=== PATIENT | female | born 1960 | race Caucasian/White ===

== ENCOUNTER 2020-04-22 09:34 | Outpatient (CLI) | payer BC, SELFPAY ==
--- NOTE | ~2020-04-22 | XR_ITS ---
EXAMINATION: XR abdomen/kub 1V INDICATION: History of right ureteral stone TECHNIQUE: Supine view of the abdomen is obtained. COMPARISON: 04/03/2019, 04/19/2017 FINDINGS: Multiple phleboliths are noted in the pelvis. No definite urinary tract calculi are identif ied. The bowel gas pattern is normal. There is mild lumbar spondylosis. IMPRESSION: 1. No definite urinary tract calculi identified. Reviewed, dictated and finalized at location A.
== END 2020-04-22 09:35 | disposition home or self-care (01) ==
LOC: ANHIMG 09:40
PROVIDERS: PCP Family Medicine; Visit Provider Urology
DX: N20.1 Calculus of ureter (principal)
CPT/HCPCS: 74018

== ENCOUNTER 2020-08-18 02:34 | Outpatient (CLI) | payer BC, SELFPAY ==
[2020-08-18 18:16] LABS: SARS-CoV-2 RNA PCR Negative
== END 2020-08-18 02:35 | disposition home or self-care (01) ==
LOC: ANHCOVIDDT 02:35
PROVIDERS: PCP Family Medicine; Visit Provider Internal Medicine Gastroenterology
DX: Z01.812 Encounter for preprocedural laboratory examination (principal); Z20.828 Contact with and (suspected) exposure to other viral communicable diseases
CPT/HCPCS: 87635; C9803; U0003

== ENCOUNTER 2020-08-20 02:15 | Day surgery (SDC) | payer BC, SELFPAY ==
[2020-08-14 12:08] VITALS: BMI 34.1
[2020-08-20 07:26] VITALS: BP 120/83; PULSE 72; RESP 16; TEMP 36.2; O2SAT 99; BMI 33.7
[2020-08-20] MEDS: LACTATED RINGERS 1,000 ML 150 ML IV CONT (07:37)
--- NOTE | 2020-08-20 07:51 | P.PNAN_ITS ---
Anes - Initial Pre Proc Eval Procedure: Operation Date: 08/20/20 08:30 Proposed Procedures p Screening Colonoscopy - Andrew Wilks MD Date/Time: 08/20/20 07:51 Surgeon: Andrew Wilks MD Pre Op Diagnosis: Neoplasm Screening/ Hx Colon Polyps Patient Data Age: 59 Gender: F Height: 5 ft 1 in Weight: 81.1 kg Last Vital Signs Temp 36.2 C L 08/20/20 07:26 Pulse 72 08/20/20 07:26 Resp 16 08/20/20 07:26 BP 120/83 08/20/20 07:26 Pulse Ox 99 08/20/20 07:26 Allergies Allergy/AdvReac Type Severity Reaction Status Date / Time No Known Allergies Allergy Verified 08/14/20 12:03 Home Medications Medication Instructions Recorded Confirmed Type albuterol sulfate 90 mcg/actuation 1 inhalation INHALATION Q4H PRN 07/28/20 08/14/20 Rx aerosol inhaler #8.5 gm atorvastatin 10 mg tablet 10 mg PO DAILY #90 tablet 07/28/20 08/14/20 Rx azelastine 137 mcg (0.1 %) nasal 1 spray NASAL Q12H #30 ml 07/28/20 08/14/20 Rx spray aerosol budesonide-formoterol HFA 160 2 puff INHALATION Q12H #10.2 gm 07/28/20 08/14/20 Rx mcg-4.5 mcg/actuation aerosol inhaler Tumeric 500 mg BYMOUTH BID 08/14/20 08/14/20 History calcium carbonate-vitamin D3 1 tablet PO DAILY 08/14/20 08/14/20 History [Calcium Chew] cetirizine [Zyrtec] 10 mg PO DAILY 08/14/20 08/14/20 History zjohednypygh-At-gdda-minerals 1 tablet PO DAILY 08/14/20 08/14/20 History [Multiple Vitamin, Womens] Patient hx anesthesia problems: none Family hx anesthesia problems: none PMFSH Past Medical History Medical History Mild intermittent asthma without complication Mixed hyperlipidemia Polyp of transverse colon Family History Family History Grandparent Cerebrovascular accident Carcinoma of colon Family history of malignant neoplasm of cervix Family history of primary malignant neoplasm of liver Diabetes mellitus Sibling Family history of malignant neoplasm of breast in first degree relative Father Family history of heart disease in male family member before age 55 Other Family history of allergic disorder Family history of malignant neoplasm Hypertension Social History Social History Smoking status: Never smoker Alcohol intake: current Drinks per week: 2 Alcohol use details: WINE/BEER Substance use: never Substance use type: does not use Living arrangements: with family Spiritual care concerns: No Anes - Eval Final PreProcedure Day of Procedure 08/20/20 07:51 Patient weight: obese Heart: regular rate and rhythm Lungs: clear to auscultation Airway: Mallampati scale class II Neurological: alert and oriented Last oral intake: >/= 8 hours ASA classification: II Emergent: no Anesthetic plan: proceed Anesthesia type and monitoring: general GIVS and standard monitoring Informed Consent: The patient's anesthetic plan and its attendant risks and benefits were discussed with the patient/family/POA. Questions were solicited an d answers provided to the satisfaction of the patient/family/POA.
--- NOTE | 2020-08-20 08:11 | WPDGICN ---
Assessment and Plan Assessment and plan (1) History of colon polyps: Code(s): Z86.010 - Personal history of colonic polyps Status: Acute Assessment and Plan: Patient has a history of a tubulovillous adenomatous colon polyp in 2016. Plan is for follow-up colonoscopy now and at 3-5 year intervals in the future. Further recommendations will be given after colonoscopy. GI Consult Note Consult date/time: 08/20/20 08:11 HPI: aCro Sarabia is a 59 year old female Seen in evaluation at the request of Dr. Vadim Cameron. patient has a history of colon polyps. Patient presents today for follow-up colonoscopy. Last examination in 2016 revealed a tubulovillous adenoma. Patient states that her current weight appetite bowel movements are normal. She denies abdominal pain. She has had no bleeding. Family history is noncontributory. Review of Systems Review of Systems: All systems reviewed & are unremarkable except as noted in HPI and below PMFSH Past Medical History Medical History Mild intermittent asthma without complication Mixed hyperlipidemia Polyp of transverse colon Family History Family History Grandparent Cerebrovascular accident Carcinoma of colon Family history of malignant neoplasm of cervix Family history of primary malignant neoplasm of liver Diabetes mellitus Sibling Family history of malignant neoplasm of breast in first degree relative Father Family history of heart disease in male family member before age 55 Other Family history of allergic disorder Family history of malignant neoplasm Hypertension Social History Social History Smoking status: Never smoker Alcohol intake: current Drinks per week: 2 Alcohol use details: WINE/BEER Substance use: never Substance use type: does not use Living arrangements: with family Spiritual care concerns: No Meds Home Medications and Allergies Home Medications Medication Instructions Recorded Confirmed Type albuterol sulfate 90 mcg/actuation 1 inhalation INHALATION Q4H PRN 07/28/20 08/14/20 Rx aerosol inhaler #8.5 gm atorvastatin 10 mg tablet 10 mg PO DAILY #90 tablet 07/28/20 08/14/20 Rx azelastine 137 mcg (0.1 %) nasal 1 spray NASAL Q12H #30 ml 07/28/20 08/14/20 Rx spray aerosol budesonide-formoterol HFA 160 2 puff INHALATION Q12H #10.2 gm 07/28/20 08/14/20 Rx mcg-4.5 mcg/actuation aerosol inhaler Tumeric 500 mg BYMOUTH BID 08/14/20 08/14/20 History calcium carbonate-vitamin D3 1 tablet PO DAILY 08/14/20 08/14/20 History [Calcium Chew] cetirizine [Zyrtec] 10 mg PO DAILY 08/14/20 08/14/20 History gnixfuhklkqm-Fq-zvhb-minerals 1 tablet PO DAILY 08/14/20 08/14/20 History [Multiple Vitamin, Womens] Allergies Allergy/AdvReac Type Severity Reaction Status Date / Time No Known Allergies Allergy Verified 08/14/20 12:03 Vital Signs Vital Signs - 24 hr 08/20/20 07:26 Temperature 97.2 F L Pulse Rate 72 Respiratory Rate 16 Blood Pressure 120/83 Pulse Oximetry 99 Exam Narrative: Exam Narrative: Physical exam reveals patient to be alert. Vital signs stable. HEENT exam unremarkable. Patient is anicteric. Lungs are clear to auscultation and percussion. Heart is without murmur or extra sounds. Abdominal exam bowel sounds are present soft nontender with no hepatosplenomegaly. Digital external rectal exam is normal.
[2020-08-20 09:04] VITALS: BP 93/56; PULSE 56; RESP 16; O2SAT 100
[2020-08-20 09:14] VITALS: BP 110/65; PULSE 54; RESP 16; O2SAT 100
[2020-08-20 09:21] VITALS: BP 143/73; PULSE 56; RESP 20; O2SAT 99
== END 2020-08-20 09:35 | disposition home or self-care (01) ==
PROVIDERS: PCP Family Medicine; Visit Provider Internal Medicine Gastroenterology
PROC: 0DJD8ZZ Inspection of Lower Intestinal Tract, Via Natural or Artificial Opening Endoscopic (ICD-10-PCS; CPT 45378; principal; 2020-08-20 08:30)
DX: Z12.11 Encounter for screening for malignant neoplasm of colon (principal); D12.2 Benign neoplasm of ascending colon; D12.3 Benign neoplasm of transverse colon; D12.5 Benign neoplasm of sigmoid colon; K64.8 Other hemorrhoids; K57.30 Diverticulosis of large intestine without perforation or abscess without bleeding; E78.2 Mixed hyperlipidemia; J45.20 Mild intermittent asthma, uncomplicated; E66.9 Obesity, unspecified; Z68.33 Body mass index [BMI] 33.0-33.9, adult
CPT/HCPCS: 45385; 88305; J2704; J7120

== ENCOUNTER 2024-07-19 15:03 | Outpatient (CLI) | payer OTHER, SELFPAY ==
--- NOTE | ~2024-07-19 | DEXA_ITS ---
Bone Density Report Name: FELIPE JONES Age: 63 Sex: Female Ethnicity: White Date of : 1960 Indication: postmenopausal; screening for osteoporosis; height loss; Referring Provider: CORDELIA EPPS Study: Bone densitometry was performed. Exam Date: July 19, 2024 Accession number: [id number] Bone Density: Region BMD T-score Z-score Classification AP Spine(L1-L4) 0.813 -2.1 -0.5 Osteopenia Femoral Neck (Left) 0.698 -1.4 0.1 Osteopenia Total Hip (Left) 0.863 -0.7 0.5 Normal Femoral Neck (Right) 0.672 -1.6 -0.2 Osteopenia Total Hip (Right) 0.838 -0.9 0.3 Normal Total Hip Mean 0.850 -0.8 0.4 Normal World Health Organization criteria for BMD impression classify patients as: Normal (T-score at or above -1.0), Osteopenia (T-score between -1.0 and -2.5), or Osteoporosis (T-score at or below -2.5). 10-year Fracture Risk(1): Major Osteoporotic Fracture 7.9% Hip Fracture 0.7% Reported Risk Factors: [place] (), Neck BMD=0.672, BMI=35.9 (1) FRAX(R) Version 3.08. Fracture probability calculated for an untreated patient. Fracture probability may be lower if the patient has received treatment. Clinical Information Provided by Patient: Has used the following medications: Vitamin D, Calcium Patient maximum height was 62 No regular weight bearing exercise Onset of menses at age 11 Number of children 3 Impression: The patient has low bone mass, based on the Total Spine T-score. The patient has an estimated ten-year risk of hip fracture of 0.7% and an estimated ten-year risk of major fracture of 7.9%, based on the WHO FRAX algorithm. Discussion: BONE DENSITY IS LOW AT ONE OR MORE SKELETAL SITES. This patient's lowest T-score is low at one or more skeletal sites. It meets the World Health Organization's (WHO) criteria for ?low bone mass? (T-score between -1.0 and -2.5). The patient's 10-year risk of fracture as calculated by FRAX is less than the threshold where pharmacological therapy is recommended by the National Osteoporosis Foundation (NOF). However, all treatment decisions require clinical judgment and consideration of individual patient factors, including patient preferences, comorbidities, previous drug use, risk factors not captured in the FRAX model (e.g., frailty, falls, vitamin D deficiency, increased bone turnover, interval significant decline in bone density) and possible under or overestimation of fracture risk by FRAX. The patient should follow a healthful lifestyle (good nutrition with adequate calcium and vitamin D, and appropriate weight-bearing exercise). Follow-Up: Consider repeating this study in 2 to 3 years to reassess this patient's status, or sooner if there is some new clinical indication. Reported by: HERRERA on 07/19/2024 3:39:00 PM. _
== END 2024-07-19 15:04 | disposition home or self-care (01) ==
LOC: ANHIMG 15:05
PROVIDERS: PCP Family Medicine; Visit Provider Nurse Practitioner Family
DX: Z78.0 Asymptomatic menopausal state (principal); M85.88 Other specified disorders of bone density and structure, other site; M85.852 Other specified disorders of bone density and structure, left thigh; M85.851 Other specified disorders of bone density and structure, right thigh
CPT/HCPCS: 77080

== ENCOUNTER 2024-09-25 10:36 | Outpatient (CLI) | payer OTHER, SELFPAY ==
--- NOTE | ~2024-09-25 | XR_ITS ---
XR knee RT min 4V Ordering provider: RICK Maria History: . M25.561 - Pain in right knee . Comparison: None. FINDINGS: BONES: No acute fracture or dislocation. JOINT SPACES: Normal. SOFT TISSUES: Normal. IMPRESSION: No acute osseous abnormality right knee. Reviewed, dictated and finalized at location A. BALL PITCHER
== END 2024-09-25 10:37 | disposition home or self-care (01) ==
PROVIDERS: PCP Family Medicine; Visit Provider Nurse Practitioner Family
DX: M25.561 Pain in right knee (principal)
CPT/HCPCS: 73564

== ENCOUNTER 2024-11-01 20:20 | Emergency (ER) | payer OTHER, SELFPAY ==
--- NOTE | ~2024-11-01 | XR_ITS ---
EXAMINATION: XR knee RT 3V DATE: 11/02/2024 08:09 INDICATION: Right knee injury. TECHNIQUE: 3 views of right knee on 4 radiographs were obtained. COMPARISON: Right knee radiographs 09/25/2024 FINDINGS: Bone alignment is normal. No fracture. There is mild tricompartmental osteoarthritis. There is a small knee joint effusion. IMPRESSION: 1. Mild right knee osteoarthritis. 2. Small knee joint effusion. Reviewed, dictated and finalized at location A. T DESIGNER
--- NOTE | ~2024-11-01 | XR_ITS ---
EXAMINATION: XR lumbar spine 2-3V DATE: 11/02/2024 08:10 INDICATION: Low back injury. TECHNIQUE: 3 views of lumbar spine were obtained. COMPARISON: Lumbar spine radiographs 09/10/2016 FINDINGS: There is 9 degrees levocurvature of lumbar spine. There are Schmorl's nodes at multiple lev els. There is moderately decreased disc height at L4-L5 and severely decreased disc height at L5-S1. There is multilevel facet joint osteoarthritis, severe in lower lumbar spine. IMPRESSION: 1. Severe lower lumbar spondylosis. Reviewed, dictated and finalized at location A. ICAL LAB TECHNICIAN
--- NOTE | ~2024-11-01 | XR_ITS ---
EXAMINATION: XR hip LT 2V w AP pelvis DATE: 11/02/2024 08:10 INDICATION: Left hip injury. TECHNIQUE: An anteroposterior view of the pelvis and 2 views of left hip were obtained. COMPARISON: None. FINDINGS: There is lumbar levocurvature and severe spondylosis. No fracture. There is mild osteoarthr itis of the hips. Osteitis pubis is noted. IMPRESSION: 1. Mild osteoarthritis of the hips. Reviewed, dictated and finalized at location A. CENTER SUPERVISOR
[2024-11-01 20:46] VITALS: BP 115/57; PULSE 86; RESP 18; TEMP 36.4; O2SAT 95
[2024-11-02 03:36] VITALS: BP 106/58; PULSE 69; RESP 18; O2SAT 98
[2024-11-02 05:27] VITALS: BP 106/55; PULSE 63; RESP 14; O2SAT 99
[2024-11-02 07:21] VITALS: BP 126/63; PULSE 52; RESP 15; O2SAT 98
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
[2024-11-02 09:09] VITALS: BP 158/88; PULSE 69; RESP 16; TEMP 36.4; O2SAT 98
--- OUTSIDE RECORDS SUMMARY | 2024-11-09 13:41 | XMS_ITS | Data Portability ---
Author Organization [facility] Address [address] [place] [address] [place] [address] Care Team Providers Care Qualitative Field Coordinator Name Role Phone CORDELIA EPPS Primary Care Provider [phone] Assessment No assessment recorded. Plan of Treatment Reminders Order Date Submit Date Provider Last Modified By Organization Details Last Modified Time Details Appointments [facility] 2024 08:30A M SANDHYA FOY MD Not available Not available Not available Lab None recorded. Referral None recorded. Procedures None recorded. Surgeries hysterosc opy, surgical, with biopsy of endometri um and/or polypecto my (SURG) [address], [facility] [address], [place], [address], 07/03/2024 13:48:37 Imaging US, pelvis, complete [email or web address] [place], [place] [id number], [address], [place], [address], 07/02/2024 08:17:22 US, pelvis 2023 024 [email or web address] [address], [address], [place], [address], 06/26/2024 12:49:54 US, transvagi nal 2023 024 [email or web address] [address], [address], [place], [address], 06/26/2024 12:49:54 MAMMO, screening , digital, bilateral 2023 024 [email or web address] [facility], [address], [address] [address], [place], [address], 08/15/2024 04:01:34 Medication Orders None recorded. Patient TargetsNo targets recorded. Patient InstructionsNo instructions recorded. Reason for Referral None Reported. Results Created Date Observation Date Name Description Value Unit Range Abnormal Flag Note LastModifiedBy Organization Detail LastModifiedTime 03/20/2003/20/2024 SURGI LIZETH PATHO LOGY surgical pathology SEE RESULT S BELOW CASE REPOR T: Surgi lizeth Patho logy Repor t Case: [id number] Autho jennamoira seo Provmo sonia: Adama Meier Colle cted: 03/20 1739 OLIVE PICKER Order ing Locat ion: [place] Patho logy Recei suzie: 03/21 0138 Patho logis t: Aleksandar Sexton MD Speci men: Cervi x, Cervi lizeth Polyp Bx ----- ----- ----- ----- ----- ----- ----- ----- ----- ----- ----- ----- ----- ----- ----- ----- ----- ---- FINAL DIAGN OSIS: Cervi lizeth polyp , polyp ectom y: -Frag mente d polyp oid fragm ents of ectoc ervic al mucos a. Harmeet ayers d by Aleksandar Sexton MD on 2023 at 4:37 PM ----- ----- ----- ----- ----- ----- ----- ----- ----- ----- ----- ----- ----- ----- ----- ----- ----- ---- CLINI LIZETH INFOR MATIO N: n84.1 MICRO SCOPI C DESCR IPTIO N: A micro scopi c exami natio n was perfo rmed. GROSS DESCR IPTIO N: A. Cervi x. The speci men is label ed with the patie nt's name, demog raphmo cs and cerv ical polyp . Recei suzie in forma jojo is a 2.5 x 2.0 x 0.5 cm aggre gate of predo minan tly mucus and red-t an tissu e. The entir e speci men is submi tted in one casse tte. Gross ed by Anni malagon Not Available [facility] (Lab) [address], [place], [address], 03/21/2024 17:41:41 08/01/20 24 08/01/2024 SURGI LIZETH PATHO LOGY surgical pathology SEE RESULT S BELOW CASE REPOR T: Surgi lizeth Patho logy Repor t Case: [id number] Autho alok rayray Provi sonia: Kamilah Han MD Colle cted: 08/01 1318 Order ing Locat ion: [place] Patho logy Recei suzie: 08/02 0524 Patho logis t: Kareem Erazo MD Speci men: Cervi x, CERVI LIZETH POLYP ----- ----- ----- ----- ----- ----- ----- ----- ----- ----- ----- ----- ----- ----- ----- ----- ----- ---- FINAL DIAGN OSIS: Cervi x, polyp ectom y: -Mucu s with no cervi lizeth tissu e ident ified (spec imen entir sakina submi tted for histo logic exami natio n). Elect selma juan by Kareem Erazo MD on 2023 at 1:46 PM ----- ----- ----- ----- ----- ----- ----- ----- ----- ----- ----- ----- ----- ----- ----- ----- ----- ---- CLINI LIZETH INFOR MATIO N: POLYP OF CERVI X MICRO SCOPI C DESCR IPTIO N: A micro scopi c exami natio n was perfo rmed. GROSS DESCR IPTIO N: A. Cervi x. The speci men is recei suzie in forma jojo label ed with the patie nt's name, mack farah, and cerv ical polyp . It consi sts of minut e woods-p ink tissu e and predo minan tly mucoi d mater ial measu ring 0.8 x 0.4 x 0.1 cm in aggre gate. The speci men is submi tted entir sakina in casse tte A1. The speci men may not survi ve proce ssing . Gross ed by Zain Miller Not Available [facility] (Lab) [address], [place], [address], 08/03/2024 14:50:28 03/14/20 24 03/14/2024 US, chad bethea No observ ation record ed. [email or web address] [place] [address], [place], [address], 03/14/2024 17:04:13 03/14/20 24 03/14/2024 US, justina rucker No observ ation record ed. [email or web address] [place] [address], [place], [address], 03/14/2024 17:04:04 03/14/20 24 03/14/2024 US, chad s No observ ation record ed. LEMUEL [address] [facility], [place], [address], 03/26/2024 12:36:07 06/26/20 24 06/26/2024 US, pelvi s No observ ation record ed. [email or web address] [place] [address], [place], [address], 06/26/2024 17:41:29 06/26/20 24 06/26/2024 US, trans vagin al No observ ation record ed. [email or web address] [place] [address], [place], [address], 06/26/2024 17:41:40 06/26/20 24 06/26/2024 US, pelvi s No observ ation record ed. [email or web address] [address], [place], [address], 06/26/2024 23:34:13 Result Notes None recorded. Procedures Surgical History Date Name Laterality Status Provider Name and Address Organization Details Recorded Time 08/01/20 24 Hysteroscopy completed SANDHYA FOY MD [address], [place], [address], [facility] 08/01/2024 15:09:58 07/19/20 24 Most Recent Bone Density completed Abbie Deutsch [facility] 08/08/2024 09:30:34 03/20/20 24 cervical polypectomy completed Yanna Webb [facility] 03/27/2024 16:46:44 01/03/20 24 Date of Last Pap Smear completed Frannie Begum [facility] 03/08/2024 16:32:35 07/08/20 23 Date of Last Mammogram completed Frannie Begum [facility] 01/03/2024 14:33:28 04/07/20 23 extraction of cataract completed Frannie Begum [facility] 01/03/2024 14:40:09 04/25/20 19 completed Abbie Deutsch [facility] 08/08/2024 09:49:40 04/21/20 19 Date of Last Colonoscopy completed Frannie Begum [facility] 03/08/2024 16:31:51 04/21/20 19 Colonoscopy completed Yanna Webb [facility] 03/27/2024 16:48:20 06/07/20 15 hernia repair [facility] 01/03/2024 14:39:36 11/07/19 10 Breast Biopsy completed Yanna Webb [facility] 03/27/2024 16:45:09 01/05/19 94 Tubal Ligation completed [facility]ner [facility] 01/03/2024 14:38:14 01/05/19 94 Thyroid Surgery completed Yanna Webb [facility] 03/27/2024 16:48:07 11/07/18 79 procedure on back completed Yanna Webb [facility] 03/27/2024 16:47:27 Imaging Results Imaging Date Name Status LastModified by Organization Details LastModified Time 03/14/2024 US, pelvis completed [email or web address] [facility] [address], [place], [address], 03/14/2024 17:04:13 03/14/2024 US, transvaginal completed [email or web address] Vee crowe [address], [place], [address], 03/14/2024 17:04:04 03/14/2024 US, pelvis completed LEMUEL Kim [address], [place], [address], 03/26/2024 12:36:07 06/26/2024 US, pelvis completed [email or web address] [place] [address], [place], [address], 06/26/2024 17:41:29 06/26/2024 US, transvaginal completed [email or web address] [facility] [address], [place], [address], 06/26/2024 17:41:40 06/26/2024 US, pelvis completed [email or web address] [address], [place], [address], 06/26/2024 23:34:13 Procedure Notes None recorded. Medical Equipment None Reported. Allergies Allergen ID Allergen Name Allergen Category Reaction Reaction Severity Criticality Documentation Date Start Date Code Code System Note Provider Name and Address Organization Details Recorded Time 20125 tree nut food Not available Not available Not available 01/03/2024 Frannie davis [facility] 4 14:21:22 88021 walnut allergeni c extract food Not available Not available Not available 01/03/2024 34764 0 RxNorm Frannie davis [facility] 4 14:21:32 06140 grape extract food,medi cation Not available Not available Not available 01/03/2024 88552 2 RxNorm Frannie davis [facility] 4 16:31:11 68021 pecan nut food Not available Not available Not available 04/12/2024 Radha davis [facility] 4 10:00:44 54015 grass pollen environme nt,medica tion Not available Not available Not available 04/12/2024 Radha davis [facility] 4 10:00:49 Medications Name Sig Start Date Stop Date Status Note LastModified by Organization Details LastModified Time albuterol sulfate 2.5 mg/3 mL (0.083 %) solution for nebulizatio n INHALE ONE VIAL (3ML) EVER 6 TO 8 HOURS NEEDED FOR SHORTNESS OF BREATH OR WHEEZING active Not Available Not Available No t Available atorvastati n 10 mg tablet TAKE 1 TABLET BY MOUTH ONCE DAILY active Not Available Not Available No t Available azithromyci n 250 mg tablet TAKE 2 TABLETS BY MOUTH ON DAY 1, AND THEN TAKE 1 TABLET BY MOUTH ONCE A DAY ON DAY 2 THROUGH DAY 5 01/03 completed Not Available Not Available Not Available ibuprofen 800 mg tablet TAKE 1 TABLET BY MOUTH 2 HOURS PRIOR TO PROCEDURE . 08/08 completed Not Available Not Available Not Available fluconazole 150 mg tablet TAKE ONE TABLET BY MOUTH A ONE-TIME DOSE 01/03 completed Not Available Not Available Not Available hydrocodone 5 mg-acetamin ophen 325 mg tablet TAKE ONE TABLET BY MOUTH TWO HOURS PRIOR TO PROCEDURE 08/08 completed Not Available Not Available Not Available Nystop 100,000 unit/gram topical powder APPLY POWDER TOPICALLY TO AFFECTED AREA TWICE DAILY 01/03 completed Not Available Not Available Not Available flurbiprofe n 0.03 % eye drops 01/03 completed Not Available Not Available Not Available famotidine 40 mg tablet TAKE 1 TABLET BY MOUTH ONCE DAILY NEEDED active Not Available Not Available No t Available prednisone 20 mg tablet TAKE 3 TABLETS BY MOUTH FOR 5 DAYS THEN 2 TABLETS BY MOUTH FOR 5 DAYS THEN 1 TABLET BY MOUTH FOR 5 DAYS THEN 1/2 (ONE-HALF ) TABLET BY MOUTH FOR 5 DAYS 01/03 completed Not Available Not Available Not Available metronidazo le 500 mg tablet TAKE 1 TABLET BY MOUTH TWICE DAILY WITH MEALS FOR 7 DAYS 03/08 completed Not Available Not Available Not Available ondansetron 8 mg disintegrat ing tablet TAKE ONE TABLET BY MOUTH TWO HOURS PRIOR TO PROCEDURE 08/08 completed Not Available Not Available Not Available alprazolam 0.5 mg tablet TAKE ONE TABLET BY MOUTH TWO HOURS PRIOR TO PROCEDURE 08/08 completed Not Available Not Available Not Available prednisolon e acetate 1 % eye drops,suspe nsion 01/03 completed Not Available Not Available Not Available neomycin-po lymyxin-dex ameth 3.5 mg/mL-10,00 0 unit/mL-0.1 % eye drops INSTILL 1 DROP EVERY 2 HOURS INTO RIGHT EYE FOR 2 DAYS THEN 1 EVERY 4 HOURS FOR 4 DAYS 01/03 completed Not Available Not Available Not Available lidocaine 5 % topical patch PLACE ONE PATCH ONTO THE SKIN ONCE DAILY. REMOVE AND DISCARD PATCH WITHIN 12 HOURS OR DIRECTED BY 01/03 completed Not Available Not Available Not Available polymyxin B sulfate 10,000 unit-trimet hoprim 1 mg/mL eye drops 01/03 completed Not Available Not Available Not Available azelastine 137 mcg (0.1 %) nasal spray USE 1 SPRAY(S) IN EACH NOSTRIL EVERY 12 HOURS active Not Available Not Available No t Available estradiol 0.01% (0.1 mg/gram) vaginal cream INSERT 1 GRAM THREE TIMES A WEEK BY VAGINAL ROUTE active Not Available Not Available No t Available albuterol sulfate HFA 90 mcg/actuati on aerosol inhaler INHALE 1 PUFF BY MOUTH EVERY 4 HOURS NEEDED FOR SHORTNESS OF BREATH OR WHEEZING active Not Available Not Available No t Available ciclopirox 0.77 % topical cream APPLY CREAM TOPICALLY TO AFFECTED AREA ONCE DAILY 01/03 completed Not Available Not Available Not Available Asmanex Twisthaler 220 mcg/actuati on(30 doses) breath activated inhalr INHALE 2 PUFFS BY MOUTH ONCE DAILY active Not Available Not Available No t Available chlorhexidi ne gluconate 0.12 % mouthwash USE DIRECTED. RINSE FOR 30 SECONDS TWICE DAILY. 01/03 completed Not Available Not Available Not Available Symbicort 160 mcg-4.5 mcg/actuati on HFA aerosol inhaler INHALE 2 PUFFS BY MOUTH EVERY 12 HOURS active Not Available Not Available No t Available Vitals Date Recorded Body height Body mass index (BMI) Body weight Systolic blood pressure Diastolic blood pressure Provider Name and Address Organization Details Last Updated DateTime 04/12/2024 154.94 cm 35.3 kg/m2 62729.05 g 134 mm[Hg] 82 mm[Hg] Radha Hammond [facility] 10:00:13 Date Recorded Body height Body mass index (BMI) Body weight Systolic blood pressure Diastolic blood pressure Provider Name and Address Organization Details Last Updated DateTime 06/22/2024 154.94 cm 35.8 kg/m2 47542.39 g 133 mm[Hg] 88 mm[Hg] Radha Hammond [facility] 4 12:33:19 Date Recorded Body height Body mass index (BMI) Body weight Systolic blood pressure Diastolic blood pressure Provider Name and Address Organization Details Last Updated DateTime 08/01/2024 154.94 cm 36.5 kg/m2 56958.33 g 105 mm[Hg] 69 mm[Hg] Abbie [facility] 4 11:06:44 Date Recorded Body height Body mass index (BMI) Body weight Systolic blood pressure Diastolic blood pressure Provider Name and Address Organization Details Last Updated DateTime 08/08/2024 154.94 cm 36.5 kg/m2 24158.33 g 111 mm[Hg] 74 mm[Hg] Abbie [facility] 4 09:53:09 Social History Question Answer Notes LastModified by Organizat ion Details LastModified Time Tobacco Smoking Status Never Smoker Frannie davis, [facility] 01/03/2024 14:37:45 What Is Your Level Of Alcohol Consumption? Occasional Information not available 01/03/2024 How Many Years Have You Consumed Alcohol? 41 Information not available 03/08/2024 Are You Blind Or Do You Have Difficulty Seeing? No Information n ot available 03/08/2024 What Is Your Level Of Caffeine Consumption? None Information not available 01/03/2024 How Much Tobacco Do You Chew? None Information not available 03/08/2024 In The 14 Days Before Symptom Onset, Have You Had Close Contact With A Laboratory-confirm ed COVID-19 While That Case Was Ill? No Information n ot available 01/03/2024 In The 14 Days Before Symptom Onset, Have You Had Close Contact With A Person Who Is Under Investigation For COVID-19 While That Person Was Ill? No Information not available 01/03/2024 Have You Been To An Area Known To Be High Risk For COVID-19? No Information not available 01/03/2024 Are You Deaf Or Do You Have Serious Difficulty Hearing? No Information not available 03/08/2024 What Type Of Diet Are You Following? REGULAR Information n ot available 03/08/2024 What Is The Highest Grade Or Level Of School You Have Completed Or The Highest Degree You Have Received? [id number] Information not available 03/08/2024 What Is Your Occupation? Retired [email or web address] Information not available 04/12/2024 Are There Any Guns Present In Your Home? No Information not available 03/08/2024 Have You Ever Been Counseled For Unhealthy Alcohol Use? No [email or web address] Information not available 03/27/2024 Do You Use Protection During Sex? No Information not available 03/08/2024 Do You Use Your Seat Belt Or Car Seat Routinely? Yes Information not available 03/08/2024 Do You Have Smoke And Carbon Monoxide Detectors In Your Home? Yes Information not available 03/08/2024 At What Age Did You Start Smoking Tobacco? 1 [email or web address] Information not available 08/01/2024 How Much Tobacco Do You Smoke? No Information not available 03/08/2024 Do You Feel Stressed (tense, Restless, Nervous, Or Anxious, Or Unable To Sleep At Night)? [id number] Information not available 03/08/2024 Do You Use Any Illicit Or Recreational Drugs? No Information not available 01/03/2024 Do You Use Sunscreen Routinely? Yes Information not available 03/08/2024 How Many Years Have You Smoked Tobacco? 0 [email or web address] Information not available 03/27/2024 Have You Used IV Drugs? No Information not available 03/08/2024 Sex: Unknown Functional Status Question Answer Note LastModified by Organizat ion Details LastModified Time Do you have difficulty walking or climbing stairs? No [email or web address] Information not available 03/27/2024 Are you able to walk? [email or web address] Information not available 03/08/2024 Are you able to care for yourself? Yes [email or web address] Information not available 03/27/2024 Do you have difficulty dressing or bathing? No [email or web address] Information not available 03/27/2024 What is your exercise level? Occasional Information not available 03/08/2024 Mental Status None recorded. Family History Relationship Description Onset Age of this Age Resolved Age Notes LastModified by Organization Details LastModified Time Brother Asthma Not available 0 01/03/2024 14:35:11 Brother Heart disease Not available 2023 14:36:35 Father Asthma Not available 14:35:11 Father Heart disease Not available 2023 14:36:35 Sister Malignant tumor of breast Not available 2023 14:35:30 Sister Malignant tumor of cervix Not available 2023 14:36:04 Paternal Aunt Malignant tumor of cervix Not available 2023 14:36:04 Paternal Grandmother Malignant tumor of cervix Not available 2023 14:36:04 Maternal Grandfather Malignant tumor of colon Not available 2023 14:36:17 Maternal Aunt Diabetes mellitus Not available 2023 14:36:50 Paternal Grandfather Malignant tumor of lung Not available 2023 14:37:14 Medical History Condition Response Allergies (Food, seasonal, environmental ) Y Other N Breast Cancer N Drug/Latex Allergies/Reactions N Blood Transfusion N Dermatologic Disorders N Lung Disease N Defects or Inherited Disease N Breast Problem Y Gestational Diabetes N Hematologic disorders N Anesthesia Complications N History of STI N Deep Vein Thrombosis N Polycystic ovary syndrome N Anxiety Disorder N Autoimmune disease N Arthritis Y Infertility N Polyps Y Acid Reflux (GERD) Y History of abnormal pap N Cancer N Stroke N Varicosities N Neurologic/Epilepsy Y Endometriosis N High Cholesterol Y Headaches N Fibromyalgia N Kidney Disease N Heart Problems N Kidney or Bladder Problems N Thyroid Problems Y GI Problems Y Eating Disorder N Anemia N Art (IVF or FET) N Psychiatric Illness N Ovarian Cancer N Diabetes N Pulmonary (TB, Asthma) N Hepatitis/Liver Disease N No Past Medical History N Eczema N Urinary Tract Infection N Abuse/Domestic Violence N Asthma Y Trauma/Violence N Depression/ depression N Heart Disease N Pre-Eclampsia N Hypertension N Osteoporosis N Thrombophilias N Gynecological History Statement/Question Response Date of Last Mammogram 07/08/2023 N Was last menstrual period normal N STIs/STDs N HPV Vaccine N Current Control Method Tubal Ligat ion Age at First Child 26 If Post Menopausal, Age at Menopause 46 Date of Last Colonoscopy 04/21/2019 Most Recent Bone Density 07/19/2024 Sexually Active? N None Menses Monthly N Date of DEXA bone scan 09/01/2016 Age of first menstrual cycle 10 Date of Last Pap Smear 01/03/2024 Sexual Problems? Y Desired Control Method None LMP Unknown 04/25/2019 N Obstetrics History GPAL:G 5 P 3 0 2 3 Type Value Full Term 3 Spontaneous 2 Living 3 Total 5 Past Encounters Encounter ID Performer Location Encounter Start Date Encounter Closed Date Diagnosis/Indication Diagnosis SNOMED-CT Code Diagnosis ICD10 Code [id number] Katelynn Montes [facility] [address] [address] 01/03/2024 13:42:25 01/03/2024 15:05:59 Gynecologic examination 37208666 Z01.419 Vaginitis 84805971 N76.0 [id number] Katelynn Montes , [facility] [address],[place] [address] 03/08/2024 16:22:55 03/08/2024 16:49:12 Postmenopausal bleeding 42063296 N95.0 [id number] [facility] [address] [address] 03/14/2024 15:08:41 03/14/2024 16:28:02 Postmenopausal bleeding 06511491 N95.0 N93.9 [id number] Katelynn Montes , [facility] [address],[place] [address] 03/20/2024 17:43:53 03/21/2024 14:34:30 Polyp at cervical os 195268525 N84.1 [id number] Katelynn Montes [facility] [address],[place] [address] 03/27/2024 16:26:50 03/27/2024 16:57:41 Polyp at cervical os 095278507 N84.1 [id number] MD Cari ELIZABETH [address],[place] [address] 04/12/2024 09:53:11 04/12/2024 10:35:05 Polyp at cervical os 754416991 N84.1 [id number] MD Cari ELIZABETH [address] [address] 06/22/2024 12:26:19 06/25/2024 13:40:13 Abnormal uterine bleeding 9723780377 9100 N93.9 [id number] Dilia Rodriguez [facility] [address],[place] [address] 06/26/2024 12:01:58 06/26/2024 12:35:49 Abnormal uterine bleeding 8666085659 9100 N93.9 [id number] SANDHYA FOY MD [place] [address] [address] 08/01/2024 10:54:38 08/01/2024 15:55:48 Polyp of cervix 40516358 N84.1 [id number] MD Cari ELIZABETH [address] [address] 08/08/2024 09:42:59 08/08/2024 10:45:31 Screening mammography 09092437 Z12.31 Postoperative visit 1836 82163 Z48.89 Health Concerns Section Related Observation LastModified by Organization Detai ls LastModified Time None Recorded Concern Status LastModified by Organization Details LastModified Time None Recorded Advance Directives Directive None Recorded Payers Encounter Date Sequence Insurance Name Policy Number Policy Story Covered Member ID Story Member ID Guarantor Name 04/12/2024 1 [facility] ON OR AFTER 05/07/21 (MEDICAID REPLACEMENT - HMO) Caro Sarabia [id number] Caro Sarabia 06/22/2024 1 [facility] ON OR AFTER 05/07/21 (MEDICAID REPLACEMENT - HMO) Caro Sarabia [id number] Caro Sarabia 06/26/2024 1 [facility] ON OR AFTER 05/07/21 (MEDICAID REPLACEMENT - HMO) Caro Sarabia [id number] Caro Sarabia 08/01/2024 1 [facility] ON OR AFTER 05/07/21 (MEDICAID REPLACEMENT - HMO) Caro Sarabia [id number] Caro Sarabia 08/08/2024 1 [facility] ON OR AFTER 05/07/21 (MEDICAID REPLACEMENT - HMO) Caro Sarabia [id number] Caro Sarabia Notes Date Note Type Note Provider Name and Address Organization Details Recorded Time 04/12/2024 text/html Patient presents for follow up of cervical polyp. She had polyp removed then base cauterized with silver nitrate. She reports continued bleeding since last treatment, however this resolved a few days ago. Cervical polyp pathology benign. SANDHYA FOY MD [address], [place], [address], [facility] 04/12/2024 10:32:09 06/22/2024 text/html Patient reports recurrence of irregular bleeding. She first noticed it after intercourse in May and it occurred again following intercourse in June. She denies pelvic pain. Bleeding is minimal, no signs of anemia. She has a history of a cervical polyp that was partially removed earlier this year. She was told that it was not able to be removed at its base, and that it may return. SANDHYA FOY MD [address], [place], [address], [facility] 06/23/2024 22:11:25 08/01/2024 text/html Patient presents for hysteroscopy and cervical polypectomy. Risks and benefits previously discussed and now reviewed with patient. SANDHYA FOY MD [address], [place], [address], [facility] 08/01/2024 15:12:59 08/08/2024 text/html S/p hysteroscopy and cervical polypectomy 08/01. Patient doing well, no complaints. Tolerating general diet. Denies nausea or vomiting. No shortness of breath or chest pain. No bleeding. SANDHYA FOY MD [address], [place], [address], [facility] 08/08/2024 10:43:23 OBGyn Episode Ob Episode Information Episode Created Date Number of Fetuses Patient Bloodtype Patient rh Status Prepregnancy Weight lbs Domestic Partner Domestic Partner Phone Father Name [employer] Support Status 01/03/20 24 1 CLOSED Fetus Data First Name Last Name Admitted to NICU Weight (g) Sex Living Outcome Pediatric Complications Fetus ID Race Codes Race Delivery Type 3175.14 4 M Full Term [id number] Vaginal Delivery Yashira Calculation YASHIRA Calculation Method Initial Yashira Date Initial Exam Date Initial Exam Provider Initial Ultrasound Date Last Menstrual Period Date Ultra Sound Weeks Gestation Conception by IVF Embryo Age at Transfer Date of Transfer 0 Eighteen To Twenty Week Yashira Update Ultra Sound Date Fundal Height At Umbil Quickening Date Ultra Sound Latest Weeks Gestation Final Yashira Confirmed By Final Yashira Confirmed Date Final Yashira Date Ultra Sound Latest Days Gestation 0 0 Menstrual History Last Menstrual Date Menses Monthly On Bcp Conception Prior Menses Frequency Hcg Plus Date Menarche Onset Age Delivery Information Delivery Date Delivery Type Labor Anesthesia Weeks Gestation Incision Type Labor Labor Length Hrs Delivered By Post Complications Tubal Sterilization Discharge Date Comments 0 Discharge Information Feeding Method Contraceptive Method Maternal HG B and HCT Levels Ob Episode Information Episode Created Date Number of Fetuses Patient Bloodtype Patient rh Status Prepregnancy Weight lbs Domestic Partner Domestic Partner Phone Father Name [employer] Support Status 01/03/20 24 1 CLOSED Fetus Data First Name Last Name Admitted to NICU Weight (g) Sex Living Outcome Pediatric Complications Fetus ID Race Codes Race Delivery Type 2863.07 2704 M Full Term [id number] Vaginal Delivery Yashira Calculation YASHIRA Calculation Method Initial Yashira Date Initial Exam Date Initial Exam Provider Initial Ultrasound Date Last Menstrual Period Date Ultra Sound Weeks Gestation Conception by IVF Embryo Age at Transfer Date of Transfer 0 Eighteen To Twenty Week Yashira Update Ultra Sound Date Fundal Height At Umbil Quickening Date Ultra Sound Latest Weeks Gestation Final Yashira Confirmed By Final Yashira Confirmed Date Final Yashira Date Ultra Sound Latest Days Gestation 0 0 Menstrual History Last Menstrual Date Menses Monthly On Bcp Conception Prior Menses Frequency Hcg Plus Date Menarche Onset Age Delivery Information Delivery Date Delivery Type Labor Anesthesia Weeks Gestation Incision Type Labor Labor Length Hrs Delivered By Post Complications Tubal Sterilization Discharge Date Comments 7 Discharge Information Feeding Method Contraceptive Method Maternal HG B and HCT Levels Ob Episode Information Episode Created Date Number of Fetuses Patient Bloodtype Patient rh Status Prepregnancy Weight lbs Domestic Partner Domestic Partner Phone Father Name [employer] Support Status 01/03/20 24 1 CLOSED Fetus Data First Name Last Name Admitted to NICU Weight (g) Sex Living Outcome Pediatric Complications Fetus ID Race Codes Race Delivery Type , [place] [id number] Yashira Calculation YASHIRA Calculation Method Initial Yashira Date Initial Exam Date Initial Exam Provider Initial Ultrasound Date Last Menstrual Period Date Ultra Sound Weeks Gestation Conception by IVF Embryo Age at Transfer Date of Transfer 0 Eighteen To Twenty Week Yashira Update Ultra Sound Date Fundal Height At Umbil Quickening Date Ultra Sound Latest Weeks Gestation Final Yashira Confirmed By Final Yashira Confirmed Date Final Yashira Date Ultra Sound Latest Days Gestation 0 0 Menstrual History Last Menstrual Date Menses Monthly On Bcp Conception Prior Menses Frequency Hcg Plus Date Menarche Onset Age Delivery Information Delivery Date Delivery Type Labor Anesthesia Weeks Gestation Incision Type Labor Labor Length Hrs Delivered By Post Complications Tubal Sterilization Discharge Date Comments 2 Discharge Information Feeding Method Contraceptive Method Maternal HG B and HCT Levels Ob Episode Information Episode Created Date Number of Fetuses Patient Bloodtype Patient rh Status Prepregnancy Weight lbs Domestic Partner Domestic Partner Phone Father Name [employer] Support Status 01/03/20 24 1 CLOSED Fetus Data First Name Last Name Admitted to NICU Weight (g) Sex Living Outcome Pediatric Complications Fetus ID Race Codes Race Delivery Type 2267.96 M Full Term [id number] Vaginal Delivery Yashira Calculation YASHIRA Calculation Method Initial Yashira Date Initial Exam Date Initial Exam Provider Initial Ultrasound Date Last Menstrual Period Date Ultra Sound Weeks Gestation Conception by IVF Embryo Age at Transfer Date of Transfer 0 Eighteen To Twenty Week Yashira Update Ultra Sound Date Fundal Height At Umbil Quickening Date Ultra Sound Latest Weeks Gestation Final Yashira Confirmed By Final Yashira Confirmed Date Final Yashira Date Ultra Sound Latest Days Gestation 0 0 Menstrual History Last Menstrual Date Menses Monthly On Bcp Conception Prior Menses Frequency Hcg Plus Date Menarche Onset Age Delivery Information Delivery Date Delivery Type Labor Anesthesia Weeks Gestation Incision Type Labor Labor Length Hrs Delivered By Post Complications Tubal Sterilization Discharge Date Comments 4 Discharge Information Feeding Method Contraceptive Method Maternal HG B and HCT Levels Ob Episode Information Episode Created Date Number of Fetuses Patient Bloodtype Patient rh Status Prepregnancy Weight lbs Domestic Partner Domestic Partner Phone Father Name [employer] Support Status 01/03/20 24 1 CLOSED Fetus Data First Name Last Name Admitted to NICU Weight (g) Sex Living Outcome Pediatric Complications Fetus ID Race Codes Race Delivery Type , [place] [id number] Yashira Calculation YASHIRA Calculation Method Initial Yashira Date Initial Exam Date Initial Exam Provider Initial Ultrasound Date Last Menstrual Period Date Ultra Sound Weeks Gestation Conception by IVF Embryo Age at Transfer Date of Transfer 0 Eighteen To Twenty Week Yashira Update Ultra Sound Date Fundal Height At Umbil Quickening Date Ultra Sound Latest Weeks Gestation Final Yashira Confirmed By Final Yashira Confirmed Date Final Yashira Date Ultra Sound Latest Days Gestation 0 0 Menstrual History Last Menstrual Date Menses Monthly On Bcp Conception Prior Menses Frequency Hcg Plus Date Menarche Onset Age Delivery Information Delivery Date Delivery Type Labor Anesthesia Weeks Gestation Incision Type Labor Labor Length Hrs Delivered By Post Complications Tubal Sterilization Discharge Date Comments 3 Discharge Information Feeding Method Contraceptive Method Maternal HG B and HCT Levels
--- OUTSIDE RECORDS SUMMARY | 2024-11-09 13:42 | XMS_ITS | Encounter Summary ---
Author Organization [facility] Address [address] [place] [address]. [place], [place] [id number] [place] [id number] Care Team Providers Care Domestic Cleaner Name Role Phone Cris Wilson Primary Care Provider [phone] Encounter Details Date Type Department Care Team (Latest Contact Info) Description 01/04/2023 Travel Social History Tobacco Use Types Packs/Day Years Used Date Smoking Tobacco: Never Smokeless Tobacco: Never Alcohol Use Standard Drinks/Week Comments Yes 0 (1 standard drink = 0.6 oz pur e alcohol) Comments No Sex and Gender Information Value Date Recorded Sex Assigned at Not on file Legal Sex Female 8:52 AM VENEER PATCHER Gender Identity Not on file Sexual Orientation Not on file COVID-19 Exposure Response Date Recorded In the last 10 days, have yo u been in contact with someone who was confirmed or suspected to have Coronavirus/COVID-19? No / Unsure 01/04/2023 8:52 AM VENEER PATCHER documented as of this encounter Plan of Treatment Not on file documented as of this encounter Visit Diagnoses Not on filedocumented in this encounter Additional Health Concerns Infection Onset Date Last Indicated Resolved Time COVID-19 Rule Out 01/04/2023 01/04/2023 01/04/2023 10:01 AM VENEER PATCHER documented as of this encounter Care Teams Domestic Cleaner Relationship Specialty Start Date End Date Cris Wilson PA [address] [id number] PCP - General PHYSICIAN PROJECTOR BOOTH OPERATOR 01/04/23 documented as of this encounter
--- OUTSIDE RECORDS SUMMARY | 2024-11-09 13:42 | XMS_ITS | Encounter Summary ---
Author Organization [facility] Address [address] [place] [address]. [place], [place] [id number] [place] [id number] Care Team Providers Care Noodle Catalyst Maker Name Role Phone Cris Wilson Primary Care Provider [phone] Reason for Referral * Imaging (Emergency) - Closed Specialty Diagnoses / Procedures Referred By Contac t Referred To Contact RADIOLOGY Procedures CTA CHEST PE PROTOCOL Iban Torres MD [address] [place] [address] Phone: tel: fax: Referral ID Status Reason Start Date Expiration Date Visits Re quested Visits Authorized [id number] Closed 01/04/2023 01/04/2024 1 1 RE SOFTWARE ASSESSOR * Imaging (Emergency) - Closed Specialty Diagnoses / Procedures Referred By Contac t Referred To Contact RADIOLOGY Procedures CT ABD+PEL W IV CON ONLY Iban Torres MD [address] [place] [address] Phone: tel: fax: Referral ID Status Reason Start Date Expiration Date Visits Re quested Visits Authorized [id number] Closed 01/04/2023 01/04/2024 1 1 RE SOFTWARE ASSESSOR Reason for Visit * Reason Comments Chest Pain Sharp pains Encounter Details Date Type Department Care Team (Late st Contact Info) Description 01/04/2023 8:54 AM SECURE SOFTWARE ASSESSOR - 01/04/2023 12:13 PM SECURE SOFTWARE ASSESSOR Emergency [facility] Emergency Room [address] [place] [address] Iban Torres MD [address] [place] [id number] Chest Pain (Sharp pains) Discharge Disposition: Home or Self Care (Routine Discharge) Social History Tobacco Use Types Packs/Day Years Used Date Smoking Tobacco: Never Smokeless Tobacco: Never Tobacco Cessation:Counseling Given: Not Answered Alcohol Use Standard Drinks/Week Comments Yes 0 (1 standard drink = 0.6 oz pur e alcohol) Comments No Sex and Gender Information Value Date Recorded Sex Assigned at Not on file Legal Sex Female 8:52 AM SECURE SOFTWARE ASSESSOR Gender Identity Not on file Sexual Orientation Not on file COVID-19 Exposure Response Date Recorded In the last 10 days, have yo u been in contact with someone who was confirmed or suspected to have Coronavirus/COVID-19? No / Unsure 01/04/2023 8:52 AM SECURE SOFTWARE ASSESSOR documented as of this encounter Last Filed Vital Signs Vital Sign Reading Time Taken Comments Blood Pressure 138/64 01/04/2023 12:09 PM SECURE SOFTWARE ASSESSOR Pulse 69 01/04/2023 12:09 PM SECURE SOFTWARE ASSESSOR Temperature 36.4 ??C (97.5 ??F) 01/04/2023 12:[address] Respiratory Rate 19 01/04/2023 12:09 PM SECURE SOFTWARE ASSESSOR Oxygen Saturation 96% 01/04/2023 12:09 PM SECURE SOFTWARE ASSESSOR Inhaled Oxygen Concentration - - Weight 79.4 kg (175 lb) 01/04/2023 9:00 AM SECURE SOFTWARE ASSESSOR Height 156.2 cm (5' 1.5 ) 01/04/2023 9:00 AM SECURE SOFTWARE ASSESSOR Body Mass Index 32.53 01/04/2023 9:00 AM SECURE SOFTWARE ASSESSOR documented in this encounter Discharge Instructions * Discharge Instructions* Iabn Torres MD - 01/04/2023 12:07 PM SECURE SOFTWARE ASSESSOR Please return to the emergency department for worsening pain, fevers or chills, difficulty breathing, vomiting, lightheadedness or fainting, the development of a rash, or any new, worsening, or concerning symptoms. You can take ibuprofen or Tylenol as needed for pain. He can add on a lidocaine patch (this can be in place for 12 hours but then will need to be removed for 12 hours). RE SOFTWARE ASSESSOR * Attachments The following attachments cannot be sent through Care Everywhere. * Chest Pain Discharge Instructions (Kiswahili) documented in this encounter Medications at Time of Discharge azithromycin (ZITHROMAX) 250 MG tablet Take 500 mg (2 pills) on first day, then 250 mg (1 pill) on days #2-5 6 tablet 01/04/2023 01/09/2023 lidocaine (LIDODERM) 5 % Place 1 patch onto the skin daily for 30 days. Remove & Discard patch within 12 hours or as directed by 30 patch 01/04/2023 02/03/2023 documented as of this encounter ED Notes * Iban Torres MD - 01/04/2023 9:27 AM CST Chief Complaint Chief Complaint Patient presents with ??? Chest Pain Sharp pains History of Present Illness The patient is a 62-year-old female with past medical history of asthma and allergies who presents to the emergency department with complaint of about a week of chest pain and abdominal pain. The patient states she feels like she has [id number] pushing out of her anterior chest, as well as pain over her left lower ribs down to her abdomen and hips. The pain seems to also radiate through to her back. She states that the pain is worse when she coughs but also when she walks. She feels like she might have some shortness of breath, however this does not seem significantly worse than the dyspnea she has with her asthma. She states that on Tuesday she was experiencing these symptoms, took her albuterol inhaler, and then vomited. She states that this is not typical for her. She also reports that she had diarrhea last night and this morning. She denies any blood in her stool or black looking stool. She does not think she had any fevers. She denies similar symptoms in the past. She reports having cough since the fall. She does not have a history of smoking or daily alcohol use. Medical History ALLERGIES: No Known Allergies MEDICATIONS: Prior to Admission medications Medication Sig Start Date End Date Taking? Authorizing Provider azithromycin (ZITHROMAX) 250 MG tablet Take 500 mg (2 pills) on first day, then 250 mg (1 pill) on days #2-5 01/04/23 01/09/23 Yes Iban Torres MD lidocaine (LIDODERM) 5 % Place 1 patch onto the skin daily for 30 days. Remove & Discard patch within 12 hours or as directed by 01/04/23 02/03/23 Yes Iban Torres MD PAST MEDICAL HISTORY: Past Medical History: Diagnosis Date ??? Asthma ??? Mixed hyperlipidemia PAST SURGICAL HISTORY: Past Surgical History: Procedure Laterality Date ??? EYE SURGERY ??? HERNIA REPAIR FAMILY HISTORY: Family History Problem Relation Name Age of Onset ??? Hyperlipidemia Mother ??? Heart Disease Father ??? Emphysema Father ??? COPD Father ??? Asthma Father ??? Cancer Sister ??? Heart Disease Brother ??? Asthma Brother ??? Stroke Maternal Grandmother ??? Hyperlipidemia Maternal Grandmother ??? Diabetes Maternal Grandmother ??? Cancer Maternal Grandmother ??? Cancer Maternal Grandfather ??? Cancer Paternal Grandmother ??? Cancer Paternal Grandfather SOCIAL HISTORY: Social History Tobacco Use ??? Smoking status: Never ??? Smokeless tobacco: Never Vaping Use ??? Vaping Use: Never used Substance Use Topics ??? Alcohol use: Yes ??? Drug use: Never Review of Systems Review of Systems Constitutional: Negative for chills and fever. HENT: Negative for congestion and sore throat. Eyes: Negative for pain and visual disturbance. Respiratory: Positive for cough and shortness of breath. Cardiovascular: Positive for chest pain. Negative for palpitations. Gastrointestinal: Positive for diarrhea and vomiting. Negative for abdominal pain. Musculoskeletal: Negative for back pain and neck pain. Skin: Positive for color change (echymosis over left lower abdomen, small echymosis right lower abdomen. Denies trauma). Negative for rash and wound. Neurological: Negative for syncope and headaches. All other systems reviewed and are negative. Physical Exam Filed Vitals: 01/04/23 0900 01/04/23 1036 01/04/23 1100 01/04/23 1130 BP: (!) 155/100 138/70 (!) 143/107 131/59 Pulse: 73 68 66 73 Resp: 18 15 20 13 Temp: 97.5 ??F (36.4 ??C) TempSrc: Temporal SpO2: 98% 99% 96% 96% Weight: 79.4 kg (175 lb) Height: 5' 1.5 (1.562 m) Physical Exam Vitals and nursing note reviewed. Constitutional: Appearance: Normal appearance. HENT: Head: Normocephalic and atraumatic. Nose: Nose normal. Mouth/Throat: Mouth: Mucous membranes are moist. Eyes: Conjunctiva/sclera: Conjunctivae normal. Cardiovascular: Rate and Rhythm: Normal rate and regular rhythm. Pulses: Normal pulses. Heart sounds: Normal heart sounds. Pulmonary: Effort: Pulmonary effort is normal. Breath sounds: Normal breath sounds. Chest: Chest wall: Tenderness (over left lateral ribs) present. Abdominal: General: Bowel sounds are normal. Palpations: Abdomen is soft. Tenderness: There is abdominal tenderness (upper abdomen LUQ). Musculoskeletal: General: Normal range of motion. Cervical back: Normal range of motion and neck supple. Skin: General: Skin is warm and dry. Capillary Refill: Capillary refill takes less than 2 seconds. Findings: Bruising (left lower abdomen, less so right ASIS) present. Neurological: General: No focal deficit present. Mental Status: She is alert and oriented to person, place, and time. Psychiatric: Mood and Affect: Mood normal. Behavior: Behavior normal. 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5 25.3 - 30.9 PG MCHC 31.8 31.0 - 34.1 G/DL RDW 12.9 12.4 - 15.1 % PLT 338 151 - 353 x10'3/uL MPV 9.0 (L) 9.6 - 12.0 FL RBC MORPHOLOGY NORMAL PLT MORPH. NORMAL WBC MORPHOLOGY NORMAL LYMPHOCYTES 29.3 15.8 - 45.0 % NEUTROPHILS 58.6 42.1 - 71.9 % MONOCYTES 8.6 5.7 - 12.5 % EOSINOPHILS 2.7 0.0 - 5.6 % BASOPHILS 0.6 0.0 - 1.3 % ABS. NEUTROPHILS 4.96 1.40 - 6.00 x10'3/uL IMMATURE GRANS 0.2 0.0 - 0.5 % ABS. LYMPHOCYTES 2.48 0.80 - 4.70 x10'3/uL COMPREHENSIVE METABOLIC PANEL Result Value Ref Range GLUCOSE 88 70 - 99 MG/DL BUN 23 (H) 7 - 18 MG/DL CREATININE S/P/B 0.54 (L) 0.55 - 1.02 MG/DL SODIUM 143 136 - 145 MMOL/L POTASSIUM 4.1 3.5 - 5.1 MMOL/L CHLORIDE S/P/B 107 100 - 108 MMOL/L CO2 28.6 21 - 32 MMOL/L CALCIUM 9.3 8.5 - 10.1 MG/DL BILIRUBIN TOTAL S/P/B 0.5 0.2 - 1.2 MG/DL TOTAL PROTEIN S/P/B 7.4 6.4 - 8.2 G/DL ALBUMIN S/P/B 3.7 3.4 - 5.0 G/DL AST 30 15 - 37 U/L ALT 46 14 - 55 U/L ALKALINE PHOSPHATASE S/P/B 86 50 - 136 U/L ANION GAP 7.4 5 - 15 MMOL/L BUN CREATININE RATIO 42.6 (H) 6 - 26 A/G RATIO 1.0 1.0 - 2.0 RATIO GFR ESTIMATE >90 >90 ML/MIN/1.73 M2 TROPONIN, QUANT Result Value Ref Range TROPONIN I HIGH SENSITIVITY 8 <51 ng/L LIPASE Result Value Ref Range LIPASE 795 (H) 73 - 393 UNITS/L URINALYSIS, AUTO, COMPLETE Result Value Ref Range COLOR (U) YELLOW TRANSPARENCY CLEAR SPECIFIC GRAVITY (U) >1.030 (H) 1.000 - 1.030 U PH 6.0 5.0 - 9.0 LEUKOCYTES (U) TRACE (A) NEGATIVE NITRITES NEGATIVE NEGATIVE PROTEIN (U) NEGATIVE NEGATIVE URINE GLUCOSE NEGATIVE NEGATIVE KETONES (U) NEGATIVE NEGATIVE BILIRUBIN (U) NEGATIVE NEGATIVE BLOOD NEGATIVE NEGATIVE WBC/HPF 0-5 0 - 5 /HPF RBC/HPF 0-5 0 - 5 /HPF EPI/HPF FEW /HPF BACTERIA (U) FEW /HPF TROPONIN, QUANT Result Value Ref Range TROPONIN I HIGH SENSITIVITY 8 <51 ng/L CORONAVIRUS (COVID-19) ANTIGEN [RAPID IN HOUSE TEST] Specimen: NASAL Result Value Ref Range CORONAVIRUS ANTIGEN IA NEGATIVE NEGATIVE Specimen Type NASAL FIRST TEST UNKNOWN EMPLOYED IN HEALTHCARE NO SYMPTOMATIC DEFINED BY CDC UNKNOWN DATE OF SYMPTOM ONSET UNKNOWN HOSPITALIZATION STATUS UNKNOWN PATIENT IN ICU UNKNOWN RESIDENT OF [facility] NO UNKNOWN IMAGING STUDIES CT ABD+PEL W IV CON ONLY Final Result by User, [id number] (01/04 1033) IMAGING STUDIES: CT ABD+PEL W CON DATE: 01/04/2023 9:34 AM CLINICAL HISTORY: left chest and abd pain Abdominal pain, acute, nonlocalized . IMPRESSION: 1. Routine CT of the abdomen and pelvis with contrast. No comparison IV administration of 100 cc's of isovue 370. . Radiation dose reduction technique was utilized. 2. Fluid in scattered nondilated loops of small bowel. Mild liquid stool in right side of colon. May be due to mild enteritis versus ileus. No bowel obstruction.. 3. Scattered colonic diverticuli without diverticulitis. No renal calculi or hydronephrosis. Normal contracted gallbladder. Normal appendix. Uterus and adnexal regions are age-appropriate. 4. Mild fatty infiltration of the liver without mass. All other visualized visceral structures are within normal limits. No free fluid or free air.. 5. Small fat-containing umbilical hernia..Atherosclerotic normal-sized aorta. No pathologic lymphadenopathy. 6. Lung bases as detailed on same-day CT chest.. Degenerative change in lumbar spine. Benign appearing rounded calcification in the posterior aspect of the thecal sac at the L2-3 level Ordered By: IBAN TORRES Interpreted By: Mayur Love, 01/04/2023 10:18 AM CTA CHEST PE PROTOCOL Final Result by User, [id number] (01/04 1100) IMAGING STUDIES: CTA CHEST PE PROTOCOL DATE: 01/04/2023 9:34 AM COMPARISON STUDIES: No comparisons. CLINICAL HISTORY: pleuritic left chest and abd pain See Comments to the Radiologist . Cough CONTRAST: 100 cc Isovue 370 IV. Radiation dose reduction technique was utilized. IMPRESSION: 1. No CT evidence of proximal pulmonary arterial emboli. 2. Small patchy infiltrate versus atelectasis in the lingular segment. Mild atelectasis in both lung bases. No pleural effusion or pneumothorax. 3. Atherosclerotic aorta without dilatation. No pericardial effusion. No pathologic lymphadenopathy or pulmonary nodules. 4. Mild mucosal thickening esophagus may be due to reflux. Small hiatal hernia. Degenerative change in thoracic spine. Ordered By: IBAN TORRES Interpreted By: Mayur Love, 01/04/2023 10:52 AM ED Course / Medical Decision Making Medical Decision Making Unclear etiology for the patient's chest, left thoracic, left abdomen, and bilateral hip pain. Differential includes musculoskeletal pain, nerve impingement, prerash shingles, gastric etiology, earlypancreatitis, atypical pneumonia, atypical cardiac presentation versus other. CT shows atelectasis v ersus infiltrate in the lingula, some liquid stool, and blood work shows elevation of lipase. Lipase elevation minimal, and likely does not represent pancreatitis, especially as the patient does not have pain when sitting still, and has no inflammation of the pancreas noted on CT. I would expect higher elevated lipase level with acute pancreatitis. Plan for lidocaine patch, OTC pain relievers, and outpatient follow-up, return to the emergency department for new or worsening symptoms. Abdominal pain, unspecified abdominal location: acute illness or injury Chest pain, unspecified type: acute illness or injury Amount and/or Complexity of Data Reviewed Independent Historian: spouse Labs: ordered. Decision-making details documented in ED Course. Radiology: ordered. Decision-making details documented in ED Course. ECG/medicine tests: ordered and independent interpretation performed. Risk OTC drugs. Clinical Impression Chest pain, unspecified type (Primary) Abdominal pain, unspecified abdominal location Disposition: Discharge Iban Torres MD 01/04/23 1211 RE SOFTWARE ASSESSOR * Louise Stevens RN - 01/04/2023 8:57 AM CST Pt presents to ED via with sharp needle like pains that are in her chest and radiate down side and into abdomen that has been going on for the past week. Also c/o tenderness in the back of her arms. C/O coughing (productive and clear). Pain is rated 7/10 and she denies any further complaints at this time. RE SOFTWARE ASSESSOR documented in this encounter Plan of Treatment Not on file documented as of this encounter Procedures Procedure Name Priority Date/Time Associated Diagnosis Comments TROPONIN, QUANT STAT 01/04/2023 11:26 AM SECURE SOFTWARE ASSESSOR CTA CHEST PE PROTOCOL STAT 01/04/2023 10:[address] ABD+PEL W CON STAT 01/04/2023 10:0 5 AM SECURE SOFTWARE ASSESSOR URINALYSIS, AUTO, COMPLETE STAT 01/04/2023 9:44 AM SECURE SOFTWARE ASSESSOR CORONAVIRUS (COVID-19) ANTIGEN DIRECT OPTICAL STAT 01/04/2023 9:37 AM SECURE SOFTWARE ASSESSOR COMPREHENSIVE METABOLIC PANEL STAT 01/04/2023 9:09 AM SECURE SOFTWARE ASSESSOR CBC W/DIFF AUTOMATED STAT 01/04/2023 9:09 AM SECURE SOFTWARE ASSESSOR TROPONIN, QUANT STAT 01/04/2023 9:09 AM SECURE SOFTWARE ASSESSOR LIPASE Routine 01/04/2023 9:09 AM SECURE SOFTWARE ASSESSOR ECG 12-LEAD Routine 01/04/2023 9:01 AM SECURE SOFTWARE ASSESSOR documented in this encounter Results * TROPONIN, QUANT (01/04/2023 11:26 AM SECURE SOFTWARE ASSESSOR) TROPONIN I HIGH SENSITIVITY 8 <51 ng/L 01/04/2023 11:51 AM SECURE SOFTWARE ASSESSOR [facility] Comment: HIGH DOSES OF BIOTIN, TROPONIN-SPECIFIC AUTOANTIBODIES, AND ANTIBODY THERAPY CONTAINING HAMA MAY INTERFERE WITH THIS TEST RESULT. CORRELATION TO CLINICAL HISTORY AND PRESENTATION RECOMMENDED. 01/04/2023 11:2 6 AM SECURE SOFTWARE ASSESSOR us Iban Torres MD LABORATORY Final Res ult Performing Organization Address City/State/[facility] Co de Phone Number [facility] [address] [place] [address], * CTA CHEST PE PROTOCOL (01/04/2023 10:05 AM SECURE SOFTWARE ASSESSOR) Anatomical Region Laterality Modality Chest Computed Tomogra phy 01/04/2023 10:5 2 AM SECURE SOFTWARE ASSESSOR Impressions 01/04/2023 10:57 AM SECURE SOFTWARE ASSESSOR IMPRESSION: 1. ??No CT evidence of proximal pulmonary arterial emboli. 2. ??Small patchy infiltrate versus atelectasis in the lingular segment. Mild atelectasis in both lung bases. No pleural effusion or pneumothorax. 3. ??Atherosclerotic aorta without dilatation. No pericardial effusion. ??No pathologic lymphadenopathy or pulmonary nodules. 4. ??Mild mucosal thickening esophagus may be due to reflux. Small hiatal hernia. Degenerative change in thoracic spine. Ordered By: IBAN TORRES Interpreted By: Mayur Love, 01/04/2023 10:52 AM Narrative 01/04/2023 10:57 AM SECURE SOFTWARE ASSESSOR IMAGING STUDIES: ??CTA CHEST PE PROTOCOL ? DATE: ??01/04/2023 9:34 AM COMPARISON STUDIES: ??No comparisons. CLINICAL HISTORY: ??pleuritic left chest and abd pain See Comments to the Radiologist ?? . ??Cough CONTRAST: 100 cc Isovue 370 IV. Radiation dose reduction technique was utilized. Procedure Note Mendoza Love MD - 01/04/2023 IMAGING STUDIES: CTA CHEST PE PROTOCOL DATE: 01/04/2023 9:34 AM COMPARISON STUDIES: No comparisons. CLINICAL HISTORY: pleuritic left chest and abd pain See Comments to the Radiologist . Cough CONTRAST: 100 cc Isovue 370 IV. Radiation dose reduction technique wasutilized. IMPRESSION: 1. No CT evidence of proximal pulmonary arterial emboli. 2. Small patchy infiltrate versus atelectasis in the lingular segment.Mild atelectasis in both lung bases. No pleural effusion orpneumothorax. 3. Atherosclerotic aorta without dilatation. No pericardial effusion. Nopathologic lymphadenopathy or pulmonary nodules. 4. Mild mucosal thickening esophagus may be due to reflux. Small hiatalhernia. Degenerative change in thoracic spine. Ordered By: IBAN TORRES Interpreted By: Mayur Love, 01/04/2023 10:52 AM us Iban Torres MD CT Final Res ult * CT ABD+PEL W IV CON ONLY (01/04/2023 10:05 AM SECURE SOFTWARE ASSESSOR) Anatomical Region Laterality Modality Abdomen Computed Tomogra phy 01/04/2023 10:1 8 AM SECURE SOFTWARE ASSESSOR Impressions 01/04/2023 10:29 AM SECURE SOFTWARE ASSESSOR IMPRESSION: 1. ??Routine CT of the abdomen and pelvis with contrast. No comparison ??IV administration of 100 cc's of isovue 370. . Radiation dose reduction technique was utilized. 2. ??Fluid in scattered nondilated loops of small bowel. Mild liquid stool in right side of colon. May be due to mild enteritis versus ileus. No bowel obstruction.. 3. ??Scattered colonic diverticuli without diverticulitis. No renal calculi or hydronephrosis. Normal contracted gallbladder. Normal appendix. Uterus and adnexal regions are age-appropriate. 4. ??Mild fatty infiltration of the liver without mass. All other visualized visceral structures are within normal limits. ??No free fluid or free air.. 5. ??Small fat-containing umbilical hernia..Atherosclerotic normal-sized aorta. No pathologic lymphadenopathy. 6. ??Lung bases as detailed on same-day CT chest.. Degenerative change in lumbar spine. Benign appearing rounded calcification in the posterior aspect of the thecal sac at the L2-3 level Ordered By: IBAN TORRES Interpreted By: Mayur Love, 01/04/2023 10:18 AM Narrative 01/04/2023 10:29 AM SECURE SOFTWARE ASSESSOR IMAGING STUDIES: CT ABD+PEL W CON ?DATE: 01/04/2023 9:34 AM CLINICAL HISTORY: left chest and abd pain Abdominal pain, acute, nonlocalized ?? . Procedure Note Mendoza Love MD - 01/04/2023 IMAGING STUDIES: CT ABD+PEL W CON DATE: 01/04/2023 9:34 AM CLINICAL HISTORY: left chest and abd pain Abdominal pain, acute, nonlocalized . IMPRESSION: 1. Routine CT of the abdomen and pelvis with contrast. No comparison IVadministration of 100 cc's of isovue 370. . Radiation dose reductiontechnique was utilized. 2. Fluid in scattered nondilated loops of small bowel. Mild liquid stoolin right side of colon. May be due to mild enteritis versus ileus. Nobowel obstruction.. 3. Scattered colonic diverticuli without diverticulitis. No renal calculior hydronephrosis. Normal contracted gallbladder. Normal appendix. Uterusand adnexal regions are age-appropriate. 4. Mild fatty infiltration of the liver without mass. All othervisualized visceral structures are within normal limits. No free fluid orfree air.. 5. Small fat-containing umbilical hernia..Atherosclerotic normal-sizedaorta. No pathologic lymphadenopathy. 6. Lung bases as detailed on same-day CT chest.. Degenerative change inlumbar spine. Benign appearing rounded calcification in the posterioraspect of the thecal sac at the L2-3 level Ordered By: IBAN TORRES Interpreted By: Mayur Love, 01/04/2023 10:18 AM us Iban Torres MD CT Final Res ult * (ABNORMAL) URINALYSIS, AUTO, COMPLETE (01/04/2023 9:44 AM SECURE SOFTWARE ASSESSOR) COLOR (U) YELLOW 01/04/2023 10:04 AM [facility] TRANSPARENCY CLEAR 01/04/2023 10:04 AM [facility] SPECIFIC GRAVITY (U) >1.030(H) 1.000 - 1.030 01/04/2023 10:04 AM [facility] U PH 6.0 5.0 - 9.0 01/04/2023 10:04 AM [facility] LEUKOCYTES (U) TRACE(A) NEGATIVE 01/04/2023 10:04 AM [facility] NITRITES NEGATIVE NEGATIVE 01/04/2023 10:04 AM [facility] PROTEIN (U) NEGATIVE NEGATIVE 01/04/2023 10:04 AM [facility] URINE GLUCOSE NEGATIVE NEGATIVE 01/04/2023 10:04 AM [facility] KETONES MG/DL (U) NEGATIVE NEGATIVE 01/04/2023 10:04 AM [facility] BILIRUBIN (U) NEGATIVE NEGATIVE 01/04/2023 10:04 AM [facility] BLOOD (U) NEGATIVE NEGATIVE 01/04/2023 10:04 AM [facility] WBC/HPF 0-5 0 - 5 /HPF 01/04/2023 10:04 AM [facility] RBC/HPF 0-5 0 - 5 /HPF 01/04/2023 10:04 AM [facility] EPI/HPF FEW /HPF 01/04/2023 10:04 AM [facility] BACTERIA (U) FEW /HPF 01/04/2023 10:04 AM [facility] URINE SPECIMEN OBTAINED BY CLEAN CATCH PROCEDURE / Unknown 01/04/2023 9:44 AM SECURE SOFTWARE ASSESSOR Iban Torres MD URINE ORDERABLES Final Re sult [facility] [address] [place] [address], * CORONAVIRUS (COVID-19) ANTIGEN [RAPID IN HOUSE TEST] (01/04/2023 9:37 AM SECURE SOFTWARE ASSESSOR) Pathologist [facility] CORONAVIRUS ANTIGEN IA NEGATIVE NEGATIVE 01/04/2023 10:00 AM [facility] Comment: NEGATIVE RESULTS DO NOT RULE OUT SARS-COV-2 INFECTION AND SHOULD NOT BE USED THE SOLE BASIS FOR TREATMENT OR PATIENT MANAGEMENT DECISIONS, INCLUDING INFECTION CONTROL DECISIONS. NEGATIVE RESULTS SHOULD BE CONSIDERED IN THE CONTEXT OF A PATIENT'S RECENT EXPOSURES, HISTORY AND THE PRESENCE OF CLINICAL SIGNS AND SYMPTOMS CONSISTENT WITH COVID 19. THIS TEST HAS BEEN AUTHORIZED BY THE FDA UNDER AN EMERGENCY USE AUTHORIZATION (EUA) FOR USE BY AUTHORIZED LABORATORIES. SPECIMEN TYPE NASAL 01/04/2023 9:39 AM [facility] [facility] FIRST TEST UNKNOWN 01/04/2023 9:39 AM [facility] EMPLOYED IN HEALTHCARE NO 01/04/2023 9:39 AM SECURE SOFTWARE ASSESSOR [facility] SYMPTOMATIC DEFINED BY CDC UNKNOWN 01/04/2023 9:39 AM SECURE SOFTWARE ASSESSOR [facility] DATE OF SYMPTOM ONSET UNKNOWN 01/04/2023 9:49 AM SECURE SOFTWARE ASSESSOR [facility] HOSPITALIZATION STATUS UNKNOWN 01/04/2023 9:39 AM SECURE SOFTWARE ASSESSOR [facility] PATIENT IN ICU UNKNOWN 01/04/2023 9:49 AM [facility] RESIDENT OF [facility] NO 01/04/2023 9:39 AM SECURE SOFTWARE ASSESSOR [facility] UNKNOWN 01/04/2023 9:49 AM SECURE SOFTWARE ASSESSOR [facility] NASAL NASAL STRUCTURE / Unknown 01/04/2023 9:37 AM SECURE SOFTWARE ASSESSOR us Iban Torres MD MICROBIOLOGY - GENERAL OR DERABLES Final Result [facility] [address] [place] [address], [place] [phone] * (ABNORMAL) LIPASE (01/04/2023 9:09 AM SECURE SOFTWARE ASSESSOR) Pathologist [facility] LIPASE 795(H) 73 - 393 UNITS/L 01/04/2023 9:51 AM SECURE SOFTWARE ASSESSOR [facility] 01/04/2023 9:09 AM SECURE SOFTWARE ASSESSOR us Iban Torres MD LABORATORY Final Res ult [facility] [address] [place] [address], [place] [phone] * TROPONIN, QUANT (01/04/2023 9:09 AM SECURE SOFTWARE ASSESSOR) Pathologist [facility] TROPONIN I HIGH SENSITIVITY 8 <51 ng/L 01/04/2023 9:32 AM [facility] Comment: HIGH DOSES OF BIOTIN, TROPONIN-SPECIFIC AUTOANTIBODIES, AND ANTIBODY THERAPY CONTAINING HAMA MAY INTERFERE WITH THIS TEST RESULT. CORRELATION TO CLINICAL HISTORY AND PRESENTATION RECOMMENDED. 01/04/2023 9:09 AM SECURE SOFTWARE ASSESSOR us Iban Torres MD LABORATORY Final Res ult [facility] [address] [place] [address], [place] [phone] * (ABNORMAL) COMPREHENSIVE METABOLIC PANEL (01/04/2023 9:09 AM [facility]) GLUCOSE 88 70 - 99 MG/DL 01/04/2023 9:28 AM [facility] BUN 23(H) 7 - 18 MG/DL 01/04/2023 9:28 AM [facility] CREATININE S/P/B 0.54(L) 0.55 - 1.02 MG/DL 01/04/2023 9:28 AM [facility] SODIUM S/P/B 143 136 - 145 MMOL/L 01/04/2023 9:28 AM [facility] POTASSIUM S/P/B 4.1 3.5 - 5.1 MMOL/L 01/04/2023 9:28 AM [facility] CHLORIDE S/P/B 107 100 - 108 MMOL/L 01/04/2023 9:28 AM [facility] CO2 28.6 21 - 32 MMOL/L 01/04/2023 9:28 AM [facility] CALCIUM S/P/B 9.3 8.5 - 10.1 MG/DL 01/04/2023 9:28 AM [facility] BILIRUBIN TOTAL S/P/B 0.5 0.2 - 1.2 MG/DL 01/04/2023 9:28 AM [facility] TOTAL PROTEIN S/P/B 7.4 6.4 - 8.2 G/DL 01/04/2023 9:28 AM [facility] ALBUMIN S/P/B 3.7 3.4 - 5.0 G/DL 01/04/2023 9:28 AM [facility] AST 30 15 - 37 U/L 01/04/2023 9:28 AM [facility] ALT 46 14 - 55 U/L 01/04/2023 9:28 AM [facility] ALKALINE PHOSPHATASE S/P/B 86 50 - 136 U/L 01/04/2023 9:28 AM [facility] ANION GAP 7.4 5 - 15 MMOL/L 01/04/2023 9:28 AM [facility] BUN CREATININE RATIO 42.6(H) 6 - 26 01/04/2023 9:28 AM [facility] A/G RATIO 1.0 1.0 - 2.0 RATIO 01/04/2023 9:28 AM [facility] GFR ESTIMATE >90 >90 ML/MIN/1.7 3 M2 01/04/2023 9:28 AM [facility] Comment: NOTE: eGFR is not calculated for patients <18 years of age. This is an estimated GFR calculation using the new CKD EPI creatinine equation without race and so does not require a correction factor for race. This estimated GFR should not be used for calculating drug doses. 01/04/2023 9:09 AM SECURE SOFTWARE ASSESSOR us Iban Torres MD LABORATORY Final Res ult [facility] [address] [place] [address], [place] [phone] * (ABNORMAL) CBC W/DIFF AUTOMATED (01/04/2023 9:09 AM [facility]) [facility] Signature WBC 8.47 4.4 - 11.0 x10'3/uL 01/04/2023 9:12 AM [facility] RBC 5.26(H) 4.50 - 5.10 x10'6/uL 01/04/2023 9:12 AM [facility] HGB 15.0 12.3 - 15.3 G/DL 01/04/2023 9:12 AM [facility] HCT 47.2(H) 35.9 - 44.6 % 01/04/2023 9:12 AM [facility] MCV 89.7 80.0 - 96.0 FL 01/04/2023 9:12 AM [facility] MCH 28.5 25.3 - 30.9 PG 01/04/2023 9:12 AM [facility] MCHC 31.8 31.0 - 34.1 G/DL 01/04/2023 9:12 AM [facility] RDW 12.9 12.4 - 15.1 % 01/04/2023 9:12 AM [facility] PLT 338 151 - 353 x10'3/uL 01/04/2023 9:12 AM [facility] MPV 9.0(L) 9.6 - 12.0 FL 01/04/2023 9:12 AM [facility] RBC MORPHOLOGY NORMAL 01/04/2023 9:12 AM [facility] PLT MORPH. NORMAL 01/04/2023 9:12 AM [facility] WBC MORPHOLOGY NORMAL 01/04/2023 9:12 AM [facility] LYMPHOCYTES % 29.3 15.8 - 45.0 % 01/04/2023 9:12 AM SECURE SOFTWARE ASSESSOR [facility] NEUTROPHILS % 58.6 42.1 - 71.9 % 01/04/2023 9:12 AM [facility] MONOCYTES % 8.6 5.7 - 12.5 % 01/04/2023 9:12 AM [facility] EOSINOPHILS 2.7 0.0 - 5.6 % 01/04/2023 9:12 AM SECURE SOFTWARE ASSESSOR [facility] BASOPHILS 0.6 0.0 - 1.3 % 01/04/2023 9:12 AM [facility] ABS. NEUTROPHILS 4.96 1.40 - 6.00 x10'3/uL 01/04/2023 9:12 AM [facility] IMMATURE GRANS % 0.2 0.0 - 0.5 % 01/04/2023 9:12 AM [facility] ABS. LYMPHOCYTES 2.48 0.80 - 4.70 x10'3/uL 01/04/2023 9:12 AM [facility] 01/04/2023 9:09 AM SECURE SOFTWARE ASSESSOR us Iban Torres MD LABORATORY Final Res ult Performing Organization Address City/State/[facility] [[email or web address]] de Phone Number [facility] [address] [place] [address], * ECG 12 lead (01/04/2023 9:01 AM SECURE SOFTWARE ASSESSOR) 01/04/2023 9:01 AM SECURE SOFTWARE ASSESSOR Narrative [facility] - 01/04/2023 5:57 PM SECURE SOFTWARE ASSESSOR ?[facility] ? Test Date: ?2023-01-04 [facility] ?Department: ?? 85 ? Room: ? EXAM 202 Gender: ? 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 : ?1960 ? Requested By: IBAN TORRES Order Number: [id number] ? Reading MD: ?? Eulogio Hiram ? Measurements Intervals ?[place] ? Rate: ? 75 ? P: ?27 FL: ? 122 ?QRS: ?19 QRSD: ? 97 ? T: ?27 QT: ? 367 ? QTc: ?410 ? 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: : 1960 Requested By: IBAN TORRES Order Number: [id number] Reading MD: Eulogio Gandhi Measurements Intervals [place] Rate: 75 P: 27 FL: 122 QRS: 19 QRSD: 97 T: 27 QT: 367 QTc: 410 Interpretive Statements SINUS RHYTHM POSSIBLE RIGHT VENTRICULAR CONDUCTION DELAY [RSR (QR) IN V1/V2] No previous ECG available for comparison RE SOFTWARE ASSESSOR us Iban Torres MD ECG ORDERABLES Final Res ult [facility] documented in this encounter Visit Diagnoses Diagnosis Chest pain, unspecified type- Primary Abdominal pain, unspecified abdominal location documented in this encounter Administered Medications Inactive Administered Medications - up to 3 most recent administrations Medication Order MAR Action Action Date Dose Rate Site iopamidol (ISOVUE-370) 76 % injection 100 mL 100 mL, Intravenous, IMG once as needed, Contrast, 1 dose, Starting on Tue01/04/23 at 1005, Until Tue01/04/23 at 0953 Given 01/04/2023 9:53 AM SECURE SOFTWARE ASSESSOR 100 mLs Ri ght Arm lidocaine 4 % patch 1 patch 1 patch, Transdermal, Administer over 12 Hours, Once, 1 dose, On Tue01/04/23 at 1215 Patch Applied 01/04/2023 12:06 PM SECURE SOFTWARE ASSESSOR 1 patch Other documented in this encounter Active and Recently Administered Medications Times are shown in SECURE SOFTWARE ASSESSOR. Scheduled Medication Order 01/02/2023 01/03/2023 01/04/2023 lidocaine 4 % patch 1 patch 1 patch, Transdermal, Administer over 12 Hours, Once, 1 dose, On Tue01/04/23 at 1215 1206 (Patch Applied - Provider: Melida Mueller RN-LP - Comment: right chest/abdomen)1213 (Due: Patch Removed - Provider: Automatic Discharge Provider - Comment: Time automatically adjusted from order being discontinued) PRN Medication Order 01/02/2023 01/03/2023 01/04/2023 iopamidol (ISOVUE-370) 76 % injection 100 mL (COMPLETED) 100 mL, Intravenous, IMG once as needed, Contrast, 1 dose, Starting on Tue01/04/23 at 1005, Until Tue01/04/23 at 0953 0953 (Given - Provid er: Sun Morris, RTR) documented in this encounter Additional Health Concerns Infection Onset Date Last Indicated Resolved Time COVID-19 Rule Out 01/04/2023 01/04/2023 01/04/2023 10:01 AM SECURE SOFTWARE ASSESSOR documented as of this encounter Care Teams Noodle Catalyst Maker Relationship Specialty Start Date End Date Cris Wilson PA [address] [place] [id number] PCP - General PHYSICIAN POACHER OPERATOR 01/04/23 documented as of this encounter
--- OUTSIDE RECORDS SUMMARY | 2024-11-09 13:42 | XMS_ITS | Data Portability ---
Author Organization [place] - [facility] wed[facility]ies, Main Office Address [address] [place] [address] Care Team Providers Care Personal Financial Advisor Name Role Phone JAN ZEE Primary Care Provider [phone] Assessment Encounter Date Assessment Date Assessment LastModified by Organization Details LastModified Time 09/12/2023 09/12/2023 A1C, CMP unremarkable [email or web address] Not available 09/06/2023 12:29:03 Plan of Treatment Reminders Order Date Submit Date Provider Last Modified By Organization Details Last Modified Time Details Appointments None recorded. Lab alpha-1-ant itrypsin (aat) phenotype, serum 2022 023 [email or web address] 25 [facility] (Lab), [address] [place], [address], 3 12:17:02 ige, total, serum 2022 023 [email or web address] 25 [facility] (Lab), [address] [place], [address], 3 12:17:03 tb (M tuberculosi s), ifn-gamma [place], blood 2022 023 [email or web address] 25 [facility] (Lab), [address] [place], [address], 3 12:17:03 igg subclasses 1+2+3+4, serum 2022 023 [email or web address] 25 [facility] (Lab), [address] [place], [address], 3 12:17:03 BNP (B-type natriuretic peptide), serum or plasma 2022 023 [facility] (Lab), [address] [place], [address], 3 12:35:15 rast class, qualitative , serum - Respiratory region 8 2022 023 [facility] (Lab), [address] [place], [address], 3 10:12:08 eosinophils , auto, blood (OBS) 2022 023 [facility] (Lab), [address] [place], [address], 3 12:34:51 Referral None recorded. Procedures None recorded. Surgeries None recorded. Imaging CT, chest, w/o contrast - R/O ILD - fibrosis; pt is going to pay for this test OOP 2022 023 [facility] (Central Scheduling), [address], [address], [place], [address], 3 17:45:41 Medication Orders famotidine 40 mg tablet 2022 023 [facility] [address] [place], [address], 3 17:08:31 nystatin 100,000 unit/gram topical powder 2022 023 [facility] [address] [place], [address], 3 17:03:19 Patient TargetsNo targets recorded. Patient Instructions Encounter Date Encounter Id Patient Instructions Last Modified By Organization Details Last Modified Time 07/18/2023 [id number] complete PFT w/ post bronchodilator spirometry* [email or web address] Not available 09/22/2023 10:14:36 six minute walk test* [email or web address] Not available 10/12/2023 11:04:25 Reason for Referral None Reported. Results Created Date Observation Date Name Description Value Unit Range Abnormal Flag Note LastModifiedBy Organization Detail LastModifiedTime 06/03/2006/03/2023 CBC/C OMPLE TE BLD COUNT W/DIF F white blood cells 7.2 x10'3 /uL 4.2-10 .8 Not Available [facility] (Lab) [address] [place], [address], 06/03/2023 19:14:29 06/03/2006/03/2023 CBC/C OMPLE TE BLD COUNT W/DIF F red blood cells 5.32 x10'6 /uL 3.80-5 .20 high Not Available [facility] (Lab) [address] [place], [address], 06/03/2023 19:14:29 06/03/2006/03/2023 CBC/C OMPLE TE BLD COUNT W/DIF F hemoglobin 15.2 g/dL 12.0-1 5.6 Not Available [facility] (Lab) [address] [place], [address], 06/03/2023 19:14:29 06/03/2006/03/2023 CBC/C OMPLE TE BLD COUNT W/DIF F hematocrit 47.6 % 35.7-4 5.7 high Not Available [facility] (Lab) [address] [place], [address], 06/03/2023 19:14:29 06/03/2006/03/2023 CBC/C OMPLE TE BLD COUNT W/DIF F mean red cell volume 89.5 fL 82.0-9 9.0 Not Available [facility] (Lab) [address] [place], [address], 06/03/2023 19:14:29 06/03/20 23 06/03/2023 CBC/C OMPLE TE BLD COUNT W/DIF F mean red cell hemoglobin 28.6 pg 27.0-3 3.0 Not Available [facility] (Lab) [address] [place], [address], 06/03/2023 19:14:29 06/03/20 23 06/03/2023 CBC/C OMPLE TE BLD COUNT W/DIF F mean RBC HGB concentratio n 31.9 g/dL 31.0-3 6.0 Not Available [facility] (Lab) [address] [place], [address], 06/03/2023 19:14:06/03/2006/03/2023 CBC/C OMPLE TE BLD COUNT W/DIF F red cell distribution width 12.8 % 11.8-1 5.5 Not Available [facility] (Lab) [address] [place], [address], 06/03/2023 19:14:29 06/03/20 23 06/03/2023 CBC/C OMPLE TE BLD COUNT W/DIF F platelets 314 x10'3 /uL 150-40 0 Not Available [facility] (Lab) [address] [place], [address], 06/03/2023 19:14:29 06/03/2006/03/2023 CBC/C OMPLE TE BLD COUNT W/DIF F mean platelet volume 10.1 fL 9.0-12 .4 Not Available [facility] (Lab) [address] [place], [address], 06/03/2023 19:14:29 06/03/2006/03/2023 CBC/C OMPLE TE BLD COUNT W/DIF F neutrophils 57.8 % 39.0-7 2.0 Not Available [facility] (Lab) [address] [place], [address], 06/03/2023 19:14:06/03/2006/03/2023 CBC/C OMPLE TE BLD COUNT W/DIF F lymphocytes 31.1 % 16.0-4 7.0 Not Available [facility] (Lab) [address] [place], [address], 06/03/2023 19:14:06/03/2006/03/2023 CBC/C OMPLE TE BLD COUNT W/DIF F monocytes 8.7 % 5.0-12 .0 Not Available [facility] (Lab) [address] [place], [address], 06/03/2023 19:14:06/03/2006/03/2023 CBC/C OMPLE TE BLD COUNT W/DIF F eosinophils 1.5 % 1.0-7. 0 Not Available [facility] (Lab) [address] [place], [address], 06/03/2023 19:14:06/03/2006/03/2023 CBC/C OMPLE TE BLD COUNT W/DIF F basophils 0.6 % 0.0-2. 0 Not Available [facility] (Lab) [address] [place], [address], 06/03/2023 19:14:06/03/2006/03/2023 CBC/C OMPLE TE BLD COUNT W/DIF F immature granulocytes 0.3 % 0.00-0 .50 Not Available [facility] (Lab) [address] [place], [address], 06/03/2023 19:14:06/03/2006/03/2023 CBC/C OMPLE TE BLD COUNT W/DIF F neutrophils, absolute count 4.19 x10'3 /uL 1.5-8. 0 Not Available [facility] (Lab) [address] [place], [address], 06/03/2023 19:14:29 06/03/20 23 06/03/2023 CBC/C OMPLE TE BLD COUNT W/DIF F lymphocytes, absolute count 2.25 x10'3 /uL 1.07-3 .43 Not Available [facility] (Lab) [address] [place], [address], 06/03/2023 19:14:06/03/2006/03/2023 CBC/C OMPLE TE BLD COUNT W/DIF F monocytes, absolute count 0.63 x10'3 /uL 0.29-0 .99 Not Available [facility] (Lab) [address] [place], [address], 06/03/2023 19:14:06/03/2006/03/2023 CBC/C OMPLE TE BLD COUNT W/DIF F eosinophils, absolute count 0.11 x10'3 /uL 0.02-0 .53 Not Available [facility] (Lab) [address] [place], [address], 06/03/2023 19:14:06/03/2006/03/2023 CBC/C OMPLE TE BLD COUNT W/DIF F basophils, absolute count 0.04 x10'3 /uL 0.01-0 .08 Not Available [facility] (Lab) [address] [place], [address], 06/03/2023 19:14:29 06/03/2006/03/2023 CBC/C OMPLE TE BLD COUNT W/DIF F immature granulocytes ,absolute 0.02 x10'3 /uL 0.00-0 .05 Not Available [facility] (Lab) [address] [place], [address], 06/03/2023 19:14:29 06/03/20 23 06/03/2023 CBC/C OMPLE TE BLD COUNT W/DIF F nucleated red blood cells 0.0 % -0 Not Available [facility] (Lab) [address] [place], [address], 06/03/2023 19:14:29 06/03/20 23 06/03/2023 CBC/C OMPLE TE BLD COUNT W/DIF F NRBC# 0.00 x10'3 /uL Not Available [facility] (Lab) [address] [place], [address], 06/03/2023 19:14:29 06/03/20 23 06/03/2023 IRON/ TIBC PANEL total iron binding capacity 399 mcg/d L 265-47 5 Not Available [facility] (Lab) [address] [place], [address], 06/03/2023 19:43:04 06/03/20 23 06/03/2023 IRON/ TIBC PANEL % transferrin saturation 27 % 20-55 Not Available [facility] (Lab) [address] [place], [address], 06/03/2023 19:43:04 06/03/20 23 06/03/2023 IRON/ TIBC PANEL unsaturated iron bind capacity 291 mcg/d L 126-38 2 Not Available [facility] (Lab) [address] [place], [address], 06/03/2023 19:43:04 06/03/20 23 06/03/2023 IRON/ TIBC PANEL iron 108 mcg/d L 42-175 Not Available [facility] (Lab) [address] [place], [address], 06/03/2023 19:43:04 06/03/20 23 06/03/2023 BASIC METAB OLIC PANEL sodium 139 mmol/ L 137-14 5 Not Available [facility] (Lab) [address] [place], [address], 06/03/2023 19:37:10 06/03/20 23 06/03/2023 BASIC METAB OLIC PANEL potassium 4.1 mmol/ L 3.5-5. 1 Not Available [facility] (Lab) [address] [place], [address], 06/03/2023 19:37:10 06/03/20 23 06/03/2023 BASIC METAB OLIC PANEL chloride 100 mmol/ L 98-107 Not Available [facility] (Lab) [address] [place], [address], 06/03/2023 19:37:10 06/03/20 23 06/03/2023 BASIC METAB OLIC PANEL carbon dioxide 30 mmol/ L 22-30 Not Available [facility] (Lab) [address] [place], [address], 06/03/2023 19:37:10 06/03/20 23 06/03/2023 BASIC METAB OLIC PANEL anion gap 13.1 mmol/ L 14-22 low Not Available [facility] (Lab) [address] [place], [address], 06/03/2023 19:37:10 06/03/20 23 06/03/2023 BASIC METAB OLIC PANEL glucose 83 mg/dL 70-99 Not Available [facility] (Lab) [address] [place], [address], 06/03/2023 19:37:10 06/03/20 23 06/03/2023 BASIC METAB OLIC PANEL BUN 21 mg/dL 8-19 high Not Available [facility] (Lab) [address] [place], [address], 06/03/2023 19:37:10 06/03/20 23 06/03/2023 BASIC METAB OLIC PANEL creatinine 0.48 mg/dL 0.66-1 .25 low Not Available [facility] (Lab) [address] [place], [address], 06/03/2023 19:37:10 06/03/2006/03/2023 BASIC METAB OLIC PANEL GFR >60 Refer ence Range : [place] ge GFR Healt hy Adult : >60 mL/mi n/1.7 3 m2 Chron ic Kidne y Disea se: 15-60 mL/mi n/1.7 3 m2 Kidne y Failu re: <15/m L/min /1.73 m2 www.n iddk. nih.g ov The MDRD study equat ion has not been valid ated in child liam <18 years of age; pregn ant women ; the elder ly >85 years of age; or in some racia l or ethni c subgr oups, such as Hispa nics. Outsi de the valid ated pako eters , estim ated GFR is less accur ate, requi ring clini lizeth judgm ent on a case- by-ca se basis . Clini lizeth inter preta tion for other races and ages must be made by the clini yesenia. The MDRD study equat ion has not been valid ated for the evalu ation of serum creat inine relat ed to nutri diane l statu s or medic ation usage . For perso ns <18 years of age, a pedia tric GFR calcu lator is avail able on the [facility] websi te: https ://nitin zhang.dany todd/pr suyapa rizvi s/kdo qi/gf r_cal culat or Not Available [facility] (Lab) [address] [place], [address], 06/03/2023 19:37:10 06/03/2006/03/2023 BASIC METAB OLIC PANEL calcium 9.9 mg/dL 8.4-10 .2 Not Available [facility] (Lab) [address] [place], [address], 06/03/2023 19:37:10 06/03/2006/03/2023 HEMOG LOBIN A1C HA1C 5.6 % 4.0-6. 0 Diabe sukhdeep Scree chelsea Crite jose e: <5.7% Consi stent with absen ce of diabe sukhdeep 5.7-6 .4% Consi stent with incre ased risk for diabe sukhdeep (pred iabet es) >OR=6 .5% Consi stent with diabe sukhdeep REFER ENCE: Diabe sukhdeep Care 2016, 39(Benson ppl.1 ):s13 -s22 Not Available Not Available 06/03/2023 19:55:55 06/03/20 23 06/03/2023 TSH thyroid-stim ulating hormone 3.050 uIU/m L 0.465- 4.680 Not Available [facility] (Lab) [address] [place], [address], 06/03/2023 19:59:39 06/03/20 23 06/03/2023 VITAM IN B12 (TORIE HAKEEM ) vb12 574 pg/mL 239-93 1 Not Available [facility] (Lab) [address] [place], [address], 06/03/2023 20:27:55 06/03/20 23 06/03/2023 JOYCE TIN ferritin 27 NG/mL 11.1-2 64 Not Available [facility] (Lab) [address] [place], [address], 06/03/2023 20:28:05 06/03/20 23 elect keiko forde am No observ ation record ed. [email or web address] [facility] [address], [place], [address], 06/03/2023 12:06:19 06/04/20 23 06/03/2023 XR, chest , 2 view No observ ation record ed. [email or web address] [facility] [address], [address], 06/07/2023 12:38:11 07/27/20 23 07/27/2023 XR, chest , 2 view No observ ation record ed. [email or web address] [address], [place], [address], 08/01/2023 18:27:13 09/08/20 23 09/08/2023 compl ete PFT w/ post [facility] hodil ator giuseppe metry * No observ ation record ed. [email or web address] [place] [address] [address] [place], [address], 09/09/2023 10:41:49 09/12/20 23 09/08/2023 CT, chest , w/o contr ast No observ ation record ed. [email or web address] [facility] (Central Scheduling) [address], [place], [address], 09/26/2023 15:41:03 09/18/20 23 09/08/2023 compl ete PFT w/ post [facility] hodil ator giuseppe metry * No observ ation record ed. [email or web address] [place] [address] ([facility] Sched[facility]) [address] [place], [address], 09/22/2023 10:14:48 Result Notes None recorded. 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 CORDELIA Banegas [address], [place] [address], [place], [address] , [employer] 3 10:36:11 Hyperlipid emia 30839981 Active 2022 CORDELIA Banegas [address], [place] [address], [place], [address] , [employer] 3 17:02:37 Vitamin D deficiency 72731907 Active 2022 CORDELIA Banegas [address], [address], [place], [address] , [place] [facility] 3 17:02:47 Chest pain 00003154 Active 2022 Milena Gusman MD [address], [address], [place], [address] , [place] [facility] 3 12:06:11 Respirator y crackles 59611195 Active 2022 ISMAEL Carpenter [address], [address], [place], [address] , [place] [facility] 3 16:51:51 Chronic cough 92298644 Active 2022 FAYE Carpenter [address], [address], [place], [address] , [place] [facility] 3 16:52:42 Dyspnea on exertion 14413278 Active 2022 FAYE Carpenter [address], [address], [place], [address] , [place] [facility] 3 16:53:33 Gastroesop hageal reflux disease without esophagiti s 680063381 Active 2022 FAYE Carpenter [address], [address], [place], [address] , [place] [facility] 3 17:07:40 Trochanter ic bursitis of left hip 1379544948246 03 Active 2022 RICK Decker [address], [address], [place], [address] , [place] [facility] 3 17:07:56 Headache 71221008 Active 2022 RICK Decker [address], [address], [place], [address] , [place] [facility] 3 17:24:25 Candidal intertrigo 448084494 Active 2022 CORDELIA Banegas [address], [address], [place], [address] , [facility] 3 16:54:13 Vaginitis 89695841 Active 2023 Milena Gusman MD [address] [facility] [address], [place], [address] , [facility] 4 18:06:56 Problem Notes None recorded. Procedures Surgical History Date Name Laterality Status Provider Name and Address Organization Details Recorded Time esophageal hiatus hernia repair completed Not Available [facility] 01/06/2023 01:23:36 ligation of bilateral fallopian tubes completed Not Available [facility] 01/06/2023 01:23:36 Imaging Results Imaging Date Name Status LastModified by Organization Details LastModified Time 06/03/2023 electrocardiogram completed [email or web address] [facility] [address], [place], [address], 06/03/2023 12:06:19 06/03/2023 XR, chest, 2 view completed [facility] [address], [place], [address], 06/07/2023 12:38:11 07/27/2023 XR, chest, 2 view completed [email or web address] [facility] [address], [place], [address], 08/01/2023 18:27:13 09/08/2023 complete PFT w/ post bronchodilator spirometry* completed [email or web address] [facility] [address] [place], [address], 09/09/2023 10:41:49 09/08/2023 CT, chest, w/o contrast completed [email or web address] [facility] (Central Scheduling) [address], [place], [address], 09/26/2023 15:41:03 09/08/2023 complete PFT w/ post bronchodilator spirometry* completed [email or web address] [facility] ([facility] Sched[facility]) [address], [place], [address], 09/22/2023 10:14:48 Procedure Notes None recorded. Medical Equipment None Reported. Allergies No known drug allergies Medications Name Sig Start Date Stop Date Status Note LastModified by Organization Details LastModified Time binaxnow cov kit home sukhdeep 01/10 completed Not Available Not Available Not Available albuterol sulfate 2.5 mg/3 mL (0.083 %) solution for nebulizatio n USE 1 VIAL IN NEBULIZER 4 TIMES DAILY NEEDED active Not Available Not Available No t Available atorvastati n 10 mg tablet TAKE 1 TABLET BY MOUTH ONCE DAILY active Not Available Not Available No t Available azithromyci n 250 mg tablet TAKE 2 TABLETS BY MOUTH ON DAY 1, AND THEN TAKE 1 TABLET BY MOUTH ONCE A DAY ON DAY 2 THROUGH DAY 5 06/03 completed Not Available Not Available Not Available fluconazole 150 mg tablet TAKE ONE TABLET BY MOUTH A ONE-TIME DOSE active Not Available Not Available No t Available benzonatate 200 mg capsule Take 1 capsule 3 times a day by oral route as needed for 10 days. 01/10 completed Not Available Not Available Not Available Nystop 100,000 unit/gram topical powder APPLY POWDER TOPICALLY TO AFFECTED AREA TWICE DAILY active Not Available Not Available No t Available flurbiprofe n 0.03 % eye drops active Not Available Not Available No t Available famotidine 40 mg tablet TAKE 1 TABLET BY MOUTH ONCE DAILY NEEDED active Not Available Not Available No t Available prednisone 20 mg tablet TAKE 3 TABLETS BY MOUTH FOR 5 DAYS THEN 2 TABLETS BY MOUTH FOR 5 DAYS THEN 1 TABLET BY MOUTH FOR 5 DAYS THEN 1/2 (ONE-HALF ) TABLET BY MOUTH FOR 5 DAYS active Not Available Not Available No t Available metronidazo le 500 mg tablet TAKE 1 TABLET BY MOUTH TWICE DAILY WITH MEALS FOR 7 DAYS active Not Available Not Available No t Available prednisolon e acetate 1 % eye drops,suspe nsion active Not Available Not Available Not Available benzonatate 100 mg capsule TAKE 1 CAPSULE BY MOUTH THREE TIMES DAILY NEEDED FOR COUGH 07/14 completed Not Available Not Available Not Available neomycin-po lymyxin-dex ameth 3.5 mg/mL-10,00 0 unit/mL-0.1 % eye drops INSTILL 1 DROP EVERY 2 HOURS INTO RIGHT EYE FOR 2 DAYS THEN 1 EVERY 4 HOURS FOR 4 DAYS active Not Available Not Available No t Available lidocaine 5 % topical patch PLACE ONE PATCH ONTO THE SKIN ONCE DAILY. REMOVE AND DISCARD PATCH WITHIN 12 HOURS OR DIRECTED BY MD active Not Available Not Available No t Available polymyxin B sulfate 10,000 unit-trimet hoprim 1 mg/mL eye drops active Not Available Not Available Not Available azelastine [...] CREAM TOPICALLY TO AFFECTED AREA ONCE DAILY active Not Available Not Available No t Available chlorhexidi ne gluconate 0.12 % mouthwash USE DIRECTED. RINSE FOR 30 SECONDS TWICE DAILY. active Not Available Not Available No t Available Symbicort 160 mcg-4.5 mcg/actuati on HFA aerosol inhaler INHALE 2 PUFFS BY MOUTH TWICE DAILY active Not Available Not Available No t Available Vitamin D3 50 mcg (2,000 unit) capsule Take 1 capsule every day by oral route. active Not Available Not Available No t Available Vitals Date Recorded Body height Body mass index (BMI) Body weight Body temperature Heart rate Oxygen saturation Oxygen saturation in Arterial blood by Pulse oximetry Systolic blood pressure Diastolic blood pressure Provider Name and Address Organization Details Last Updated DateTime 3 154.94 cm 35.3 kg/m2 91537.7 7 g 94.1 [degF] 99 /min 95 % 95 % 132 mm[Hg] 84 mm[Hg] Tiara Goncalves RN [facility] 3 15:14:51 Date Recorded Body height Body temperature Provider Olive sandres and Address Organization Details Last Updated DateTime 07/18/2023 154.94 cm 97.4 [degF] Nehal Oneill MA [facility] 07/18/2023 16:21:34 Date Recorded Body mass index (BMI) Body weight Heart rate Oxygen saturation Oxygen saturation in Arterial blood by Pulse oximetry Systolic blood pressure Diastolic blood pressure Provider Name and Address Organization Details Last Updated DateTime 3 35.2 kg/m2 52341.9 8 g 78 /min 96 % 96 % 108 mm[Hg] 50 mm[Hg] Smiley Neely [facility] [employer] [facility] 3 16:34:31 Date Recorded Body height Body mass index (BMI) Body weight Body temperature Heart rate Oxygen saturation Oxygen saturation in Arterial blood by Pulse oximetry Systolic blood pressure Diastolic blood pressure Provider Name and Address Organization Details Last Updated DateTime 3 154.94 cm 35.3 kg/m2 23335.7 7 g 97.9 [degF] 78 /min 94 % 94 % 102 mm[Hg] 70 mm[Hg] Tiara Goncalves RN [facility] [employer] [facility] 3 16:47:04 Date Recorded Body height Body mass index (BMI) Body weight Heart rate Oxygen saturation Oxygen saturation in Arterial blood by Pulse oximetry Systolic blood pressure Diastolic blood pressure Provider Name and Address Organization Details Last Updated DateTime 3 154.94 cm 35.9 kg/m2 87917.5 5 g 80 /min 96 % 96 % 120 mm[Hg] 70 mm[Hg] Nell Abarca MA [facility] [employer] [facility] 3 16:38:28 Date Recorded Body height Body mass index (BMI) Body weight Body temperature Heart rate Oxygen saturation Oxygen saturation in Arterial blood by Pulse oximetry Systolic blood pressure Diastolic blood pressure Provider Name and Address Organization Details Last Updated DateTime 3 154.94 cm 35.9 kg/m2 16520.5 5 g 98.3 [degF] 80 /min 96 % 96 % 132 mm[Hg] 78 mm[Hg] Frida Mortensen LPN [facility] [employer] [facility] 3 16:37:31 Social History Question Answer Notes LastModified by Organizat ion Details LastModified Time Tobacco Smoking Status Never Smoker Bessie davis [facility] [employer] [facility] 09/12/2023 16:29:48 What Is Your Level Of Alcohol Consumption? Occasional [id number] Information not available 01/06/2023 What Is Your Level Of Caffeine Consumption? Occasional [id number] Information not available 01/06/2023 In The 14 Days Before Symptom Onset, Have You Had Close Contact With A Laboratory-confir med COVID-19 While That Case Was Ill? No [email or web address] Information not available 09/12/2023 In The 14 Days Before Symptom Onset, Have You Had Close Contact With A Person Who Is Under Investigation For COVID-19 While That Person Was Ill? No [email or web address] Information not available 09/12/2023 What Type Of Diet Are You Following? REGULAR [id number] Information not available 01/06/2023 Have You Ever Been Counseled For Unhealthy Alcohol Use? No [email or web address] Information not available 09/12/2023 Do You Have Any Pets? Yes One Dog [email or web address] Information not available 09/12/2023 Do You Use Any Illicit Or Recreational Drugs? No [email or web address] Information not available 09/12/2023 Has Tobacco Cessation Counseling Been Provided? No [email or web address] Information not available 09/12/2023 Have You Recently Traveled Abroad? No Information not available 09/12/2023 Do You Have Any Dietary Restrictions? No [email or web address] Information not available 09/12/2023 Do You Or Have You Ever Used Any Other Forms Of Tobacco Or Nicotine? No Information not available 09/12/2023 Sex: Unknown Functional Status Question Answer Note LastModified by Organizat ion Details LastModified Time What is your exercise level? Occasional [id number] Information not available 01/06/2023 Mental Status None recorded. Family History Relationship Description Onset Age of this Age Resolved Age Notes LastModified by Organization Details LastModified Time Paternal Grandmother Malignant tumor of cervix [id number] Not available 01/06/2023 01:23:38 Paternal Grandfather Cirrhosis of liver [id number].[id number] Not available 01/06/2023 01:23:38 Paternal Grandfather Malignant tumor of lung [id number].507 [id number] Not available 01/06/2023 01:23:38 Maternal Grandmother Cerebrovascu lar accident [id number] Not available 01/06/2023 01:23:38 Medical History No medical history recorded. Gynecological HistoryNo gynecological history recorded. Obstetrics History GPAL:G 0 P 0 0 0 0 Immunizations Vaccine Type Date Status Note Provider Nam e and Address Organization Details Recorded Time COVID-19, mRNA, LNP-S, PF, 30 mcg/0.3 mL dose 11/10/2021 completed Not Available [facility] 3 01:25:06 COVID-19, mRNA, LNP-S, PF, 30 mcg/0.3 mL dose 02/15/2021 completed Not Available [facility] 3 01:25:06 COVID-19, mRNA, LNP-S, PF, 30 mcg/0.3 mL dose 01/23/2021 completed Not Available [facility] 3 01:25:06 Influenza, split virus, quadrivalent, PF 08/23/2022 completed Not Available [facility] 3 01:25:06 Past Encounters Encounter ID Performer Location Encounter Start Date Encounter Closed Date Diagnosis/Indication Diagnosis SNOMED-CT Code Diagnosis ICD10 Code [id number] [facility] [place] [address] [place] [address] 06/23/2022 00:00:00 06/23/2022 16:40:50 [id number] [facility] [place] [address] [place] [address] 07/14/2022 00:00:00 07/14/2022 09:30:27 [id number] [facility] [place] [address] [place] [address] 08/09/2022 00:00:00 09/06/2022 13:53:34 [id number] [facility] [place] [address] [place] [address] 08/23/2022 00:00:00 08/23/2022 16:58:31 [id number] [facility] [place] [address] [place] [address] 10/20/2022 00:00:00 10/20/2022 18:05:11 [id number] CORDELIA Banegas [facility] [place] [address] [place] [address] 01/10/2023 10:10:59 01/10/2023 10:51:30 Costal chondritis [id number] M94.0 [id number] Milena Gusman MD [facility] Primary [facility] [place] [facility] [address] [facility] [address] [place] [address] 06/03/2023 11:37:53 06/03/2023 12:50:41 Asthma [id number] J45.909 Chest pain 08678188 R07. 9 R53.83 R42 [id number] Jovan Hawk [facility] Primary Care [facility] [address] [facility] [address] [place] [address] 06/16/2023 15:07:26 06/16/2023 15:58:06 Asthma [id number] J45.909 Chest pain 80350195 R07. 9 R53.83 R42 [id number] Nilda Williamson [facility] Pulmonolo gy [place] [address] [place] [address] 07/18/2023 16:18:25 07/18/2023 17:50:01 Respiratory crackles 02065500 R09.89 Chronic cough 02510182 R 05.3 Dyspnea on exertion 6084 5006 R06.09 Gastroesop hageal reflux disease without esophagitis 729252877 K21.9 [id number] Jovan Hawk [facility] Primary Care [place] [facility] [address] [facility] [address] [place] [address] 08/05/2023 16:37:55 08/22/2023 16:08:20 Asthma [id number] J45.909 Chest pain 12982856 R07. 9 R53.83 R42 Trochanter ic bursitis of left hip 5880310040 39464 M70.62 Headache 76920894 R51.9 [id number] CORDELIA Banegas [facility] Primary Care [place] [facility] [address] [facility] [address] [place] [address] 09/12/2023 16:29:02 09/12/2023 17:12:14 Hyperlipidemia 18209473 E78.5 Vitamin D deficiency 347 87488 E55.9 Candidal intertrigo 2661 67977 B37.2 [id number] Nilda Williamson, RICK-BC [facility] Pulmonolo gy [place] [address] [place] [address] 09/09/2023 16:32:25 09/12/2023 09:01:18 Respiratory crackles 91747342 R09.89 Chronic cough 13606301 R 05.3 Dyspnea on exertion 6084 5006 R06.09 Gastroesop hageal reflux disease without esophagitis 206246192 K21.9 Health Concerns Section Related Observation LastModified by Organization Detai ls LastModified Time None Recorded Concern Status LastModified by Organization Details LastModified Time None Recorded Advance Directives Directive None Recorded Payers Encounter Date Sequence Insurance Name Policy Number Policy Story Covered Member ID Story Member ID Guarantor Name 06/16/2023 1 [facility] (MEDICAID REPLACEMENT - O) [id number] Caro Dumontman [id number] Caro Sarabia 07/18/2023 1 [facility] (MEDICAID REPLACEMENT - HMO) [id number] Caro Dumontman [id number] Caro Sarabia 08/05/2023 1 [facility] (MEDICAID REPLACEMENT - HMO) [id number] Caro Dumontman [id number] Caro Sarabia 09/09/2023 1 [facility] (MEDICAID REPLACEMENT - O) [id number] Caro Dumontman [id number] Caro Sarabia 09/12/2023 1 [facility] (MEDICAID REPLACEMENT - O) [id number] Caro Dumontman [id number] Caro Sarabia Notes Date Note Type Note Provider Name and Address Organization Details Recorded Time 3 text/html 1. Pt in office with partner for f/u on sob issues from a couple of weeks ago. Pt states she hasn't gotten any calls to set up appts with cardiology and pulmonology. Pt states she is still having times when her lungs feel tight . Still taking steroids and using inhalers as directed. 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 Asthma: was seen by pulmonology who ordered lab work to rule out/in possible contributing factors to SOB. Had chest xray performed 07/27/23 which was normal. Was started on famotidine 40 mg to see if GERD is a contributing factor to SOB. Recently received COVID and flu shot. Symptoms of cough have improved since starting the nebulizer treatments TID. Still using symbicort 2 puffs BID. Using albuterol inhaler 3x/week in addition to the nebulizer. Has follow-up 09/09/23. Still has to get lab work done. 2. Chest pain: was referred to cardiology and still waiting to see who insurance will cover. Won't cover HSHS. Hasn't had chest pain since last visit. No arm pain, jaw pain, palpitations. 3. Left and right hip bursitisAcute on ChronicExacerbated by extra activity. 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 Has popping-type pain when she's changing positions, walking up and down stairs, or standing for long periods of time. 4. Headaches: has been having more frequent headaches at work. She has been taking ibuprofen lately but wants to try taking tylenol. Worsened by activity and noise. Denies n/v associated with headaches. Jovan Hawk, RICK [address], [place], [address], [employer] 08/05/2023 19:30:08 3 text/html Ms Palacios presents today to follow up on chronic cough, dyspnea, asthma, recent testing.On Symbicort BID, but tells me her best clinical benefit still comes from nebulized albuterolCan not climb steps without dyspnea.Cough is daily, started at the beginning of summer, although she does feel that this is marginally improved since thenPrevious seasonal bronchitis in the burch.No respiratory infection this year.Denies hemoptysis, chest pain, reactions to strong scents.GERD has increased in frequencyShe has not had steroids or antibiotics for respiratory infectionRespiratlry symptoms do not wake her at night Nilda Williamson, RICK-BC [address], [place], [address], [place] 09/11/2023 20:19:12 3 text/html Pt. here for routine follow-up and review labs drawn 08/29/23. CORDELIA Banegas [address], [place], [address], [place] 09/12/2023 19:02:59 OBGyn Episode No OBEpisode recorded.
--- OUTSIDE RECORDS SUMMARY | 2024-11-09 13:42 | XMS_ITS | Encounter Summary ---
Author Organization [facility] Address [address] [place] [address]. [place], [place] [address] [place] [address] Care Team Providers Care Application Development Intern Name Role Phone Cris Wilson Primary Care Provider [phone] Reason for Visit * Reason Onset Date Comments Consult 06/27/2023 Encounter Details Date Type Department Care Team (Late st Contact Info) Description 06/27/[address] [address] Frannie So RMA Consult Social History Tobacco Use Types Packs/Day Years Used Date Smoking Tobacco: Never Smokeless Tobacco: Never Alcohol Use Standard Drinks/Week Comments Yes 0 (1 standard drink = 0.6 oz pur e alcohol) Comments No Sex and Gender Information Value Date Recorded Sex Assigned at Not on file Legal Sex Female 8:52 AM ORACLE IAM CONSULTANT Gender Identity Not on file Sexual Orientation Not on file documented as of this encounter Progress Notes * LAYTON Wolfe - 06/27/2023 11:09 AM CDT Received request to schedule cardiology consult per Dr Milena Gusman. We are not able to scheduledue to patients insurance / BCBS Community. We are not in network. Left message with Dr Gusman's MA to make aware. documented in this encounter Plan of Treatment Not on file documented as of this encounter Visit Diagnoses Not on filedocumented in this encounter Care Teams Application Development Intern Relationship Specialty Start Date End Date Cris Wilson PA [address] [place] [address] PCP - General PHYSICIAN HEAD SCHOOL CUSTODIAN 01/04/23 documented as of this encounter
--- OUTSIDE RECORDS SUMMARY | 2024-11-09 13:42 | XMS_ITS | Encounter Summary ---
Author Organization [facility] Address [address] [place] [address]. [place] [address] [place] [address] Care Team Providers Care Intelligence Intern Name Role Phone Cris Wilson Primary Care Provider [phone] Encounter Details Date Type Department Care Team (Latest Contact Info) Description 06/03/2023 1:47 PM CDT - 06/03/2023 11:59 PM CDT Hospital Encounter [facility] [address] [place] [address] Milena Gusman MD [address] [place] [address] Discharge Disposition: Home or Self Care (Routine Discharge) Social History Tobacco Use Types Packs/Day Years Used Date Smoking Tobacco: Never Smokeless Tobacco: Never Alcohol Use Standard Drinks/Week Comments Yes 0 (1 standard drink = 0.6 oz pur e alcohol) Comments No Sex and Gender Information Value Date Recorded Sex Assigned at Not on file Legal Sex Female 8:52 AM AD COMPOSITOR Gender Identity Not on file Sexual Orientation Not on file documented as of this encounter Plan of Treatment Not on file documented as of this encounter Procedures Procedure Name Priority Date/Time Associated Diagnosis Comments XR CHEST PA+LAT Routine 06/03/2023 2:05 PM CDT Asthma ([facility]/HCC) documented in this encounter Results * XR CHEST PA+LAT (06/03/2023 2:05 PM CDT) Anatomical Region Laterality Modality Chest Radiographic Marlena ging 06/03/2023 11:5 7 PM CDT Impressions 06/03/2023 11:58 PM CDT IMPRESSION: 1. ??Mild chronic lung changes without acute process or active disease. Referred By: ?? Interpreted By: Heriberto Bertrand MD, 06/03/2023 11:57 PM Narrative 06/03/2023 11:58 PM CDT INDICATION: Asthma. COMPARISON: None. TECHNIQUE: Frontal and lateral views of the chest. FINDINGS: Lungs: There is mild coarsening of the lung markings bilaterally, consistent with chronic changes. ??There is no airspace opacity or focal infiltrate. There is no pleural effusion. There is no pneumothorax. Heart and Mediastinum: The heart is normal in size. The mediastinum is unremarkable. Bones: No acute process. Procedure Note Heriberto Bertrand MD - 06/04/2023 INDICATION: Asthma. COMPARISON: None. TECHNIQUE: Frontal and lateral views of the chest. FINDINGS: Lungs: There is mild coarsening of the lung markings bilaterally,consistent with chronic changes. There is no airspace opacity or focalinfiltrate. There is no pleural effusion. There is no pneumothorax. Heart and Mediastinum: The heart is normal in size. The mediastinum is unremarkable. Bones: No acute process. IMPRESSION: 1. Mild chronic lung changes without acute process or active disease. Referred By: Interpreted By: Heriberto Bertrand MD, 06/03/2023 11:57 PM Milena Gusman MD GENERAL IMAGING Final Resul t documented in this encounter Visit Diagnoses Diagnosis Asthma ([facility]HS/HCC) Unspecified asthma documented in this encounter Care Teams Intelligence Intern Relationship Specialty Start Date End Date Cris Wilson PA [address] [place] [address] PCP - General PHYSICIAN ARCHITECTURAL DRAFTER 01/04/23 documented as of this encounter
--- OUTSIDE RECORDS SUMMARY | 2024-11-09 13:42 | XMS_ITS | Encounter Summary ---
Author Organization [facility] Address [address] [place] [address]. [place] [address] [place] [address] Care Team Providers Care Ncqa Specialist Name Role Phone Cris Wilson Primary Care Provider [phone] Encounter Details Date Type Department Care Team (Late st Contact Info) Description 07/19/2023 Transcribe Orders [facility] Pre Access Team [address] [place] [address] Nilda Williamson, [facility] [address] [place] [phone] Social History Tobacco Use Types Packs/Day Years Used Date Smoking Tobacco: Never Smokeless Tobacco: Never Alcohol Use Standard Drinks/Week Comments Yes 0 (1 standard drink = 0.6 oz pur e alcohol) Comments No Sex and Gender Information Value Date Recorded Sex Assigned at Not on file Legal Sex Female 8:52 AM PREMIUM CANCELLATION CLERK Gender Identity Not on file Sexual Orientation Not on file documented as of this encounter Plan of Treatment Not on file documented as of this encounter Visit Diagnoses Diagnosis Chronic cough- Primary Cough Dyspnea on exertion Other dyspnea and respiratory abnormality documented in this encounter Care Teams Ncqa Specialist Relationship Specialty Start Date End Date Cris Wilson PA [address] [place] [address] PCP - General PHYSICIAN ALKYLATION OPERATOR 01/04/23 documented as of this encounter
--- OUTSIDE RECORDS SUMMARY | 2024-11-09 13:42 | XMS_ITS | Encounter Summary ---
Author Organization [facility] Address [address] [place] [address]. [place], [place] [address] [place] [address] Care Team Providers Care Arts Administrator Or Manager Name Role Phone Cris Wilson Primary Care Provider [phone] Encounter Details Date Type Department Care Team (Latest Contact Info) Description 06/03/2023 Travel Social History Tobacco Use Types Packs/Day Years Used Date Smoking Tobacco: Never Smokeless Tobacco: Never Alcohol Use Standard Drinks/Week Comments Yes 0 (1 standard drink = 0.6 oz pur e alcohol) Comments No Sex and Gender Information Value Date Recorded Sex Assigned at Not on file Legal Sex Female 8:52 AM CHIEF OPHTHALMIC TECHNICIAN Gender Identity Not on file Sexual Orientation Not on file documented as of this encounter Plan of Treatment Not on file documented as of this encounter Visit Diagnoses Not on filedocumented in this encounter Care Teams Arts Administrator Or Manager Relationship Specialty Start Date End Date Cris Wilson PA [address] [place] [address] PCP - General PHYSICIAN GREETING CARD MAKER 01/04/23 documented as of this encounter
--- OUTSIDE RECORDS SUMMARY | 2024-11-09 13:42 | XMS_ITS | Continuity of Care Document ---
Author Organization [facility] [place] Address [address] [place] [address] Care Team Providers Care Computer Network Engineer Name Role Phone VANESSAFRANCOIS CORDELIA Primary Care Provider [phone] Assessment No assessment recorded. Plan of Treatment Reminders Order Date Submit Date Provider Last Modified By Organization Details Last Modified Time Details Appointments [facility] 2024 08:30A M SANDHYA FOY MD Not available Not available Not available Lab None recorded. Referral None recorded. Procedures None recorded. Surgeries None recorded. Imaging MAMMO, screening , digital, bilateral 2023 024 [facility], [address], [place] [address], [place], [address], 08/15/2024 04:01:34 Medication Orders None recorded. Patient TargetsNo targets recorded. Patient InstructionsNo instructions recorded. Reason for Referral None Reported. Procedures Surgical History Date Name Laterality Status Provider Name and Address Organization Details Recorded Time 08/01/20 24 Hysteroscopy completed SANDHYA FOY MD [address], [place], [address], [facility] 08/01/2024 15:09:58 07/19/20 24 Most Recent Bone Density completed Abbie Deutsch [facility] 08/08/2024 09:30:34 03/20/20 24 cervical polypectomy completed Yanna Webb [facility] 03/27/2024 16:46:44 01/03/20 24 Date of Last Pap Smear completed [facility] 03/08/2024 16:32:35 07/08/20 23 Date of Last Mammogram completed [facility] 01/03/2024 14:33:28 04/07/20 23 extraction of cataract completed [facility] 01/03/2024 14:40:09 04/25/20 19 completed Abbie Deutsch [facility] 08/08/2024 09:49:40 04/21/20 19 Date of Last Colonoscopy completed [facility] 03/08/2024 16:31:51 04/21/20 19 Colonoscopy completed [facility] 03/27/2024 16:48:20 06/07/20 15 hernia repair completed [facility] 01/03/2024 14:39:36 11/07/19 10 Breast Biopsy completed [facility] 03/27/2024 16:45:09 01/05/19 94 [facility] 01/03/2024 14:38:14 01/05/19 94 Thyroid Surgery completed [facility] 03/27/2024 16:48:07 11/07/18 79 procedure on back completed [facility] 03/27/2024 16:47:27 Imaging Results None recorded. Procedure Notes None recorded. Medical Equipment None Reported. Allergies Allergen ID Allergen Name Allergen Category Reaction Reaction Severity Criticality Documentation Date Start Date Code Code System Note Provider Name and Address Organization Details Recorded Time 07965 tree nut food Not available Not available Not available 01/03/2024 Franniekyle davis [facility] 02/27/202 4 14:21:22 57760 walnut allergeni c extract food Not available Not available Not available 01/03/2024 03685 0 RxNorm Frannie Begum susan, [facility] 4 14:21:32 51957 grape extract food,medi cation Not available Not available Not available 01/03/2024 69321 2 RxNorm Frannie Begum susan, [facility] 4 16:31:11 00178 pecan nut food Not available Not available Not available 04/12/2024 Radha Hammond susan [facility] 4 10:00:44 47728 grass pollen environme nt,medica tion Not available Not available Not available 04/12/2024 Radha Hammond susan, [facility] 4 10:00:49 Medications Name Sig Start [...] Updated DateTime 08/08/2024 154.94 cm 36.5 kg/m2 10766.33 g 111 mm[Hg] 74 mm[Hg] Abbie Deutsch [facility] 09:53:09 Social History Question Answer Notes LastModified by Organizat ion Details LastModified Time Tobacco Smoking Status Never Smoker Frannie davis, [facility] 01/03/2024 14:37:45 What Is Your Level [...] Or The Highest Degree You Have Received? [id number] Information not available 03/08/2024 What Is Your Occupation? Retired [email or web address] Information not available 04/12/2024 Are There Any Guns Present In Your Home? No Information not available 03/08/2024 Have You Ever Been Counseled For Unhealthy Alcohol Use? No [email or web address] Information not available 03/27/2024 Do You Use Protection During Sex? No Information not available 03/08/2024 Do You Use Your Seat Belt Or Car Seat Routinely? Yes Information not available 03/08/2024 Do You Have Smoke And Carbon Monoxide Detectors In Your Home? Yes Information not available 03/08/2024 At What Age Did You Start Smoking Tobacco? 1 [email or web address] Information not available 08/01/2024 How Much Tobacco Do You Smoke? No Information not available 03/08/2024 Do You Feel Stressed (tense, Restless, Nervous, Or Anxious, Or Unable To Sleep At Night)? [id number] Information not available 03/08/2024 Do You Use Any Illicit Or Recreational Drugs? No Information not available 01/03/2024 Do You Use Sunscreen Routinely? Yes Information not available 03/08/2024 How Many Years Have You Smoked Tobacco? 0 [email or web address] Information not available 03/27/2024 Have You Used IV Drugs? No Information not available 03/08/2024 Sex: Unknown Functional Status Question Answer Note LastModified by Organizat ion Details LastModified Time Do you have difficulty walking or climbing stairs? No [email or web address] Information not available 03/27/2024 Are you able to walk? [email or web address] Information not available 03/08/2024 Are you able to care for yourself? Yes [email or web address] Information not available 03/27/2024 Do you have difficulty dressing or bathing? No [email or web address] Information not available 03/27/2024 What is your [...] Diagnosis/Indication Diagnosis SNOMED-CT Code Diagnosis ICD10 Code [id number] SANDHYA FOY MD [place] [address] [address] 08/01/2024 10:54:38 08/01/2024 15:55:48 Polyp of cervix 12330804 N84.1 [id number] SANDHYA FOY MD [place] [address] [address] 08/08/2024 09:42:59 08/08/2024 10:45:31 Screening mammography 16112651 Z12.31 Postoperative visit 1836 85104 Z48.89 Health Concerns Section Related Observation LastModified by Organization Detai ls LastModified Time None Recorded Concern Status LastModified by Organization Details LastModified Time None Recorded Payers Encounter Date Sequence Insurance Name Policy Number Policy Story Covered Member ID Story Member ID Guarantor Name 08/08/2024 1 [facility] - DOS ON OR AFTER 21 (MEDICAID REPLACEMENT - HMO) Caro Sarabia [id number] Caro Sarabia Notes Date Note Type Note Provider Name and Address Organization Details Recorded Time 08/08/2024 text/html S/p hysteroscopy and cervical polypectomy 08/01. Patient doing well, no complaints. Tolerating general diet. Denies nausea or vomiting. No shortness of breath or chest pain. No bleeding. SANDHYA FOY MD [address], [place], [address], [facility] 08/08/2024 10:43:23 OBGyn Episode No OBEpisode recorded.
--- OUTSIDE RECORDS SUMMARY | 2024-11-09 13:42 | XMS_ITS | Encounter Summary ---
Author Organization [facility] Address [address] [place] [address]. [place], [place] [id number] [place] [id number] Care Team Providers Care Software Writer Name Role Phone Cris Wilson Primary Care Provider [phone] Reason for Visit * Reason Onset Date Comments Appointment Request 06/20/2023 Self ref Encounter Details Date Type Department Care Team (Late st Contact Info) Description 06/20/2023 Telephone [place] [facility] [address] Frannie So RMA Appointment Request (Self ref) Social History Tobacco Use Types Packs/Day Years Used Date Smoking Tobacco: Never Smokeless Tobacco: Never Alcohol Use Standard Drinks/Week Comments Yes 0 (1 standard drink = 0.6 oz pur e alcohol) Comments No Sex and Gender Information Value Date Recorded Sex Assigned at Not on file Legal Sex Female 8:52 AM SURGICAL ATTENDANT Gender Identity Not on file Sexual Orientation Not on file documented as of this encounter Progress Notes * LAYTON Wolfe - 06/20/2023 3:50 PM CDT Returned call and left message to schedule cardiology consult per Self referral. (Need to verify ptinsurance ? [facility] documented in this encounter Plan of Treatment Not on file documented as of this encounter Visit Diagnoses Not on filedocumented in this encounter Care Teams Software Writer Relationship Specialty Start Date End Date Cris Wilson PA NPI: [id number] [place] [address] [place] [id number] PCP - General PHYSICIAN SEO ASSOCIATE 01/04/23 documented as of this encounter
--- OUTSIDE RECORDS SUMMARY | 2024-11-09 13:42 | XMS_ITS | Clinical Summary ---
Author Organization [facility] Address [address] [place] [address]. [place], [place] [id number] [place] [address] Care Team Providers Care Lime Spreader Name Role Phone Cris Wilson Primary Care Provider [phone] Allergies No known active allergies Medications No known medications Family History Medical History Relation Comments Asthma Brother Heart Disease Brother Asthma Father COPD Father Emphysema Father Heart Disease Father Cancer Maternal Grandfather Cancer Maternal Grandmother Diabetes Maternal Grandmother Hyperlipidemia Maternal Grandmother Stroke Maternal Grandmother Hyperlipidemia Mother Cancer Paternal Grandfather Cancer Paternal Grandmother Cancer Sister Relation Status Comments Brother Father Maternal Grandfather Maternal Grandmother Mother Paternal Grandfather Paternal Grandmother Sister Social History Tobacco Use Types Packs/Day Years Used Date Smoking Tobacco: Never Smokeless Tobacco: Never Tobacco Cessation:Counseling Given: Not Answered Alcohol Use Standard Drinks/Week Comments Yes 0 (1 standard drink = 0.6 oz pur e alcohol) Comments No Sex and Gender Information Value Date Recorded Sex Assigned at Not on file Legal Sex Female 8:52 AM SAW SUPERINTENDENT Gender Identity Not on file Sexual Orientation Not on file Last Filed Vital Signs Vital Sign Reading Time Taken Comments Blood Pressure 138/64 01/04/2023 12:09 PM SAW SUPERINTENDENT Pulse 69 01/04/2023 12:09 PM SAW SUPERINTENDENT Temperature 36.4 ??C (97.5 ??F) 01/04/2023 12:[address] Respiratory Rate 19 01/04/2023 12:09 PM SAW SUPERINTENDENT Oxygen Saturation 96% 01/04/2023 12:09 PM SAW SUPERINTENDENT Inhaled Oxygen Concentration - - Weight 79.4 kg (175 lb) 01/04/2023 9:00 AM SAW SUPERINTENDENT Height 156.2 cm (5' 1.5 ) 01/04/2023 9:00 AM SAW SUPERINTENDENT Body Mass Index 32.53 01/04/2023 9:00 AM SAW SUPERINTENDENT Plan of Treatment Health Maintenance Due Date Last Done Comments Cervical Cancer Screening Pap Smear (Age 30 to 64) Every 3 Years 1961 Colorectal Cancer Screening Colonoscopy (10 Years) 1961 Annual Physical 1964 Hepatitis C 1979 DTaP, Tdap and Td Vaccines (1 - Tdap) 1980 Cervical Cancer Screening Pap with HPV Testing (Age 30 to 64) Every 5 Years 1991 Cervical Cancer Screening with HPV 1991 Mammogram Screening 2001 Zoster Vaccines (2 of 3) 08/03/2013 06/08/2013 COVID-19 Vaccine ( - season) 2024 11/10/2021, 02/15/2021, 01/23/2021 Influenza Adult (#1) 2024 08/23/2022, 10/14/2021, 08/26/2020, Additional history exists RSV Immunization or 60+ Years (1 - 1-dose 75+ series) 2036 Meningococcal Vaccine Aged Out No miguel dawna eligible based on patient's age to complete this topic Pneumococcal Vaccine: Pediatrics (0 to 5 Years) and At-Risk Patients (6 to 64 Years) Aged Out No longer eligible based on patient's age to complete this topic RSV Immunizations Under 20 Months Aged Out No longer eligible based on patient's age to complete this topic Insurance [facility] Care Teams Lime Spreader Relationship Specialty Start Date End Date Cris Wilson PA [address] [place] [id number] PCP - General PHYSICIAN SENIOR INSIGHT MANAGER INTERNATIONAL 01/04/23
--- OUTSIDE RECORDS SUMMARY | 2024-11-09 13:43 | XMS_ITS | Encounter Summary ---
Author Organization [facility] Address [address] [place] [address] Care Team Providers Care Hot Top Liner Helper Name Role Phone Vadim Cameron MD Primary Care Provider [phone] Encounter Details Date Type Department Care Team (Late st Contact Info) Description 08/30/2024 Orders Only [facility] Pulmonary at [address] [place] [id number] Akash Clements MD [address] [place] [address] [address] [place] [address] Pulmonary fibrosis (CMS/HCC) (HCC) (Primary Dx) Social History Tobacco Use Types Packs/Day Years Used Date Smoking Tobacco: Never Smokeless Tobacco: Never Alcohol Use Standard Drinks/Week Comments Yes 0 (1 standard drink = 0.6 oz pur e alcohol) occasionally Comments Unknown Sex and Gender Information Value Date Recorded Sex Assigned at Not on file Legal Sex Female 9:29 AM FLOATING OPERATOR Gender Identity Not on file Sexual Orientation Not on file documented as of this encounter Plan of Treatment Upcoming Encounters Date Type Department Care Team (Latest Contact Info) Description 11/22/2024 12:00 PM FLOATING OPERATOR Hospital Encounter [address] [address] Andrew Nava, DO [address] [place] [address] [place] [address] 11/22/2024 12:00 PM FLOATING OPERATOR - 11/22/2024 12:30 PM FLOATING OPERATOR Surgery [address] [place] [address] Andrew Nava, DO [address] [address] ESOPHAGOGASTRODUODENOSCOPY Scheduled Procedures Name Priority Associated Diagnoses Date/Ti me ESOPHAGOGASTRODUODENOSCOPY Dysphagia, unspecified type 11/22/2024 12:00 PM FLOATING OPERATOR documented as of this encounter Results * Ribosomal P ab (08/31/2024 11:56 AM CDT) Ribosomal ab <0.2 <=0.9 Ab Index Comment: Interpretive Data Negative: < 1.0 Ab Index Positive: > or = 1.0 Ab Index Current interpretive data was last revised on 2017. Testing performed by: [facility], [address] [place] [address]., [address] Blood 08/31/2024 11:5 6 AM CDT 08/31/2024 2:08 PM CDT Akash Clements MD LAB BLOOD ORDERABLES Final Resul t Performing Organization Address City/[facility]/ZIP Co de Phone Number [facility] ([place]) [address] [place] [address] [place] [address] * Centromere ab IgG (08/31/2024 11:56 AM CDT) Anticentromere <0.2 <=0.9 Ab Index Comment:Testing performed by : [facility], [address] [place] [address], [place]., [address] Blood 08/31/2024 11:5 6 AM CDT 08/31/2024 2:08 PM CDT kAash Clements MD LAB BLOOD ORDERABLES Final Resul t [facility] ([place]) [address] [place] [address] [place] [address] * Anti-double stranded DNA abs (08/31/2024 11:56 AM CDT) dsDNA Ab <1.0 <=4.0 IUnits/mL Comment: Interpretive Data Negative: < or = 4 IUnits/mL Indeterminate: 5 - 9 IUnits/mL Positive: > or = 10 IUnits/mL Current interpretive data was last revised on 2017. Testing performed by: [facility], [address] [place]., [address] Blood 08/31/2024 11:5 6 AM CDT 08/31/2024 2:08 PM CDT us Akash Clements MD LAB BLOOD ORDERABLES Final Resul t [facility] ([place]) [address] [facility] [place] [address] documented in this encounter Visit Diagnoses Diagnosis Pulmonary fibrosis (CMS/HCC) (HCC)- Primary Postinflammatory pulmonary fibrosis Dysphagia, unspecified type documented in this encounter Care Teams Hot Top Liner Helper Relationship Specialty Start Date End Date Vadim Cameron MD PCP - General 05/17/18 09/05/24 documented as of this encounter
--- OUTSIDE RECORDS SUMMARY | 2024-11-09 13:43 | XMS_ITS | Clinical Summary ---
Author Organization [facility] Address [address] [place] [address] Care Team Providers Care Dev Manager Name Role Phone Vadim Cameron MD Primary Care Provider [phone] Allergies No known active allergies Medications PROAIR HFA 90 mcg/actuation inhaler Inhale 2 puffs every 8 (eight) hours as needed 1 8 Active atorvastatin (LIPITOR) 10 mg tablet Take 1 tablet (10 mg total) by mouth daily 0 8 Active azelastine (ASTELIN) 137 mcg (0.1 %) nasal spray 1 spray 2 (two) times a day as needed 1 8 Active multivit-iron- min-folic acid 3,500-18-0.4 unit-mg-mg tablet,chewabl eIndications:s top 5 days before surgery Take 1 tablet/chew tab by mouth daily. Active B.breve-L.acid -L.rham-S.ther mo 3 billion cell tablet,chewabl e Take 1 tablet/chew tab by mouth daily. Active naproxen sodium 220 mg capsuleIndicat ions:stop 5 days before surgery Take 220 mg by mouth 2 (two) times a day as needed. Active garlic 1,000 mg capsule Take 2,000 mg by mouth 2 (two) times a day Active cetirizine (ZyrTEC) 10 mg tablet Take 1 tablet (10 mg total) by mouth daily Active utcfl-2-zzk-ep a-dpa-fish oil 1,050-1,200 mg capsuleIndicat ions:stop 5 days before surgery Take 1 capsule by mouth daily Active ALPRAZolam (XANAX) 0.5 mg tablet Take 1 tablet (0.5 mg total) by mouth PRN for procedure coming up in Jul 2024 4 Active famotidine (PEPCID) 40 mg tablet Take 1 tablet (40 mg total) by mouth daily as needed for heartburn or indigestion Active cholecalcifero l (VITAMIN D-3) 2000 unit capsule Take 1 capsule (2,000 Units total) by mouth daily Active ascorbic acid (VITAMIN C) 1,000 mg tablet Take 1 tablet (1,000 mg total) by mouth daily Active turmeric root extract 500 mg capsule Take 1,000 mg by mouth daily Active albuterol 2.5 mg /3 mL (0.083 %) nebulizer solution Take 3 mL (2.5 mg total) by nebulization every 6 (six) hours as needed for wheezing or shortness of breath Active estradioL (ESTRACE) 0.01 % (0.1 mg/gram) vaginal cream Insert 2 g into the vagina daily 4 Active mometasone (Asmanex Twisthaler) 220 mcg/ actuation (30) aerosol powdr breath activated Inhale 2 puffs daily 1 each 3 4 Active meloxicam (MOBIC) 7.5 mg tablet TAKE 1 TABLET BY MOUTH ONCE DAILY FOR KNEE PAIN 4 Active nystatin (Nystop) powder as needed Active HYDROcodone-ac etaminophen (NORCO) 5-325 mg per tabletIndicati ons:Pain Take 2 tablets by mouth every 6 (six) hours as needed for pain. 40 tablet 8 024 Discontin ued(Thera py completed ) Active Problems Problem Noted Date Diagnosed Date Dysphagia 10/15/2024 Assessment & Plan (10/15/2024 1:27 PM ROOF TECHNICIAN): I placed a referral for GI today for further evaluation Mild intermittent asthma without complication Assessment & Plan (10/15/2024 1:24 PM ROOF TECHNICIAN): She was unable to complete methacholine challenge testing despite repeated attempts due to coughing She has done well with decrease to monotherapy, continue Asmanex 220 at this time, consider additional deescalation at her next office visit Continue albuterol as needed only, we have discussed indications for use We have discussed signs and symptoms that would require earlier evaluation or change to her plan of care Assessment & Plan (09/11/2024 12:50 PM ROOF TECHNICIAN): She was unable to complete methacholine challenge testing despite repeated attempts due to coughing She has had clinical benefit from albuterol however diagnosis is unclear at this time. I will wean her from Symbicort to monotherapy with high-dose ICS and monitor her response Continue albuterol as needed only, we have discussed indications for use We have discussed signs and symptoms that would require earlier evaluation or change to her plan of care Pulmonary fibrosis (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 I would appreciate rheumatology input, referral placed today Repeat high resolution CT and pulmonary function testing to monitor for evidence of disease progression in six months, due around 02/2025 Assessment & Plan (09/11/2024 1:04 PM ROOF TECHNICIAN): Further evaluation for early interstitial lung disease has been initiated with autoimmune serologies and high-resolution CT Isolated positive BOB antibody At this time I will plan for surveillance imaging with high resolution CTand serial pulmonary function testing to monitor for evidence of disease progression in six months Encounters Date Type Department Care Team Description 10/17/2024 Telephone [facility] Gastroenterology at [address] [place] [phone] Andrew Nava, 10/15/2024 11:00 AM ROOF TECHNICIAN Office Visit [facility] Pulmonary at [address] [place] [phone] Nilda Williamson, JUAN Pulmonary fibrosis ([facility]) (HCC) (Primary Dx); Mild intermittent asthma without complication; Dysphagia, unspecified type 09/10/2024 11:30 AM ROOF TECHNICIAN Office Visit [facility] Pulmonary at [address] [place] [phone] Nilda Williamson NP Mild intermittent asthma without complication (Primary Dx); Pulmonary fibrosis (CMS/HCC) (HCC) 09/10/2024 Telephone [facility] Pulmonary at [address] [phone] Veda Neely LPN PA Asmanex 08/31/2024 11:50 AM CDT Lab [address] [address] Pulmonary fibrosis (CMS/HCC) (HCC) 08/30/2024 Orders Only [facility] Pulmonary at [address] [phone] Akash Clements MD Pulmonary fibrosis (CMS/HCC) (HCC) (Primary Dx) 08/15/2024 8:00 AM CDT Lab [address] [address] Pulmonary fibrosis (CMS/HCC) (HCC) 08/15/2024 7:11 AM CDT - 08/15/2024 11:59 PM CDT Hospital Encounter [facility] [address] [place] [phone] Pulmonary fibrosis (CMS/HCC) ([facility]) Discharge Disposition: Discharge to home or self care 08/14/[address] [address] Vadim Cameron MD from Last 3 Months Surgical History Surgery Date Site/Laterality Comments HIATAL HERNIA REPAIR CYSTECTOMY Sacral TUBAL LIGATION Medical History Medical History Date Comments Hyperlipidemia Asthma Allergy Induced Chronic bronchitis (HCC) Kidney stone Pulmonary fibrosis (CMS/HCC) (HCC) 09/11/2024 Family History Medical History Relation Name Comments Heart disease Brother Heber Open Heart surgery Brother Heber Unsure of how many vessels COPD Father Febrile seizures Father GI problems Father Heart disease Father Heart failure Father Peripheral vascular disease Father adult respiratory distress syndrome Father sepsis Father hip replacement Mother Breast cancer Sister 1 Gayathri Cervical cancer Sister 2 February Relation Name Status Comments Brother Heber Alive Father Unknown Mother Alive Sister 1 Gayathri Alive Sister 2 February Other Social History Tobacco Use Types Packs/Day Years Used Date Smoking Tobacco: Never Smokeless Tobacco: Never Tobacco Cessation:Counseling Given: Not Answered Alcohol Use Standard Drinks/Week Comments Yes 0 (1 standard drink = 0.6 oz pur e alcohol) occasionally Comments Unknown Sex and Gender Information Value Date Recorded Sex Assigned at Not on file Legal Sex Female 9:29 AM ROOF TECHNICIAN Gender Identity Not on file Sexual Orientation Not on file Obstetrics History Last Filed Vital Signs Vital Sign Reading Time Taken Comments Blood Pressure 128/80 10/15/2024 10:54 AM ROOF TECHNICIAN Pulse 78 10/15/2024 10:54 AM ROOF TECHNICIAN Temperature 36.1 ??C (97 ??F) 10/15/2024 10:54 AM ROOF TECHNICIAN Respiratory Rate 16 09/10/2024 11:18 AM ROOF TECHNICIAN Oxygen Saturation 97% 10/15/2024 10:54 AM ROOF TECHNICIAN Inhaled Oxygen Concentration - - Weight 87.2 kg (192 lb 4.8 oz) 10/15/2024 10:54 AM ROOF TECHNICIAN Height 154.9 cm (5' 1 ) 10/15/2024 10:54 AM ROOF TECHNICIAN Body Mass Index 36.33 10/15/2024 10:54 AM ROOF TECHNICIAN Plan of Treatment Upcoming Encounters Date Type Department Care Team (Latest Contact Info) Description 11/22/2024 12:00 PM ROOF TECHNICIAN Hospital Encounter [address] [address] [facility] [address] [address] 11/22/2024 12:00 PM ROOF TECHNICIAN - 11/22/2024 12:30 PM ROOF TECHNICIAN Surgery [address] [address] Anderw Nava, 3 [facility] [employer] [place] [address] [place] [address] ESOPHAGOGASTRODUODENOSCOPY Scheduled Procedures Name Priority Associated Diagnoses Date/Ti me ESOPHAGOGASTRODUODENOSCOPY Dysphagia, unspecified type 11/22/2024 12:00 PM ROOF TECHNICIAN Health Maintenance Due Date Last Done Comments Breast Cancer Screening-Mammogram 1961 Cervical Cancer Screening 1961 Colon Cancer Screening-Colonoscopy 1961 Depression Screening 1961 Hepatitis C Screening 1961 DTaP/Tdap/Td Vaccine (1 - Tdap) 1972 Hepatitis B Screening 1979 Regular Well Visit/Exam 18-64 1979 Zoster Vaccine (3 of 3) 06/19/2024 04/24/2024, 06/08 Covid-19 Vaccine ( - 2023-2 5 season) 2024 08/01/2023, 11/10/2021, 02/15/2021, Additional history exists Influenza Vaccine (#1) 2024 , 08/23/2022, 10/14/2021, Additional history exists Pneumococcal vaccine <65 Completed 04/24/2024 Procedures Procedure Name Priority Date/Time Associated Diagnosis Comments BLOOD MISC TO DAYTON Routine 08/31/2024 11 :56 AM CDT ANTI-DOUBLE STRANDED DNA ANTIBODIES Routine 08/31/2024 11:56 AM CDT Pulmonary fibrosis (CMS/HCC) (HCC) CENTROMERE ANTIBODY, IGG Routine 08/31/2024 11:56 AM CDT Pulmonary fibrosis (CMS/HCC) (HCC) RIBOSOMAL P AB Routine 08/31/2024 11:56 AM CDT Pulmonary fibrosis (CMS/HCC) (HCC) LORA-1 ANTIBODY Routine 08/15/2024 7:44 AM CDT Pulmonary fibrosis (CMS/HCC) (HCC) SCL 70 ANTIBODIES Routine 08/15/2024 7:4 4 AM CDT Pulmonary fibrosis (CMS/HCC) (HCC) WALLPAPER INSPECTOR ANTIBODIES Routine 08/15/2024 7:44 AM CDT Pulmonary fibrosis (CMS/HCC) (HCC) MORGAN ANTIBODIES Routine 08/15/2024 7:44 AM CDT Pulmonary fibrosis (CMS/HCC) (HCC) SJOGRENS SYNDROME-B ANTIBODY Routine 08/15/2024 7:44 AM CDT Pulmonary fibrosis (CMS/HCC) (HCC) SJOGRENS SYNDROME-A ANTIBODY Routine 08/15/2024 7:44 AM CDT Pulmonary fibrosis (CMS/HCC) (HCC) VIJAY QUALITATIVE WITH REFLEX TO VIJAY QUANTITATIVE Routine 08/15/2024 7:44 AM CDT Pulmonary fibrosis (CMS/HCC) (HCC) BOB ANTIBODY EVALUATION WITH REFLEX Routine 08/15/2024 7:44 AM CDT Pulmonary fibrosis (CMS/HCC) (HCC) CYCLIC CITRUL PEPTIDE ANTIBODY, IGG Routine 08/15/2024 7:44 AM CDT Pulmonary fibrosis (CMS/HCC) (HCC) RHEUMATOID FACTOR Routine 08/15/2024 7:4 4 AM CDT Pulmonary fibrosis (CMS/HCC) (HCC) CT CHEST HIGH RESOLUTION WO CONTRAST Schedule Routine, Read Routine (OP Routine) 08/15/2024 7:32 AM CDT Pulmonary fibrosis (CMS/HCC) (HCC) from Last 3 Months Results * (ABNORMAL) BLOOD MISC TO DAYTON (08/31/2024 11:56 AM CDT) Test name, chem [id number] MyoMarker 3 Profile [place] ref Lab Misc See Comment(A) [facility] (GUERA) Comment: Test ?Result ? Flag ??Unit ?? RefValue MyoMarker 3 Profile ??Anti-Lora-1 Ab ?<20 ?Units ??<20 ?Anti-PL-7 Ab ?Negative ?Negative ?This test was developed and its performance characteristics ?determined by [facility]. It has not been cleared or ?approved by the Food and Drug Administration. ??Anti-PL-12 Ab ? Negative ?Negative ?This test was developed and its performance characteristics ?determined by [facility]. It has not been cleared or ?approved by the Food and Drug Administration. ??Anti-EJ Ab ?Negative ?Negative ?This test was developed and its performance characteristics ?determined by [facility]. It has not been cleared or ?approved by the Food and Drug Administration. ??Anti-OJ Ab ?Negative ?Negative ?This test was developed and its performance characteristics ?determined by [facility]. It has not been cleared or ?approved by the Food and Drug Administration. ??Anti-SRP Ab ? Negative ?Negative ?This test was developed and its performance characteristics ?determined by [facility]. It has not been cleared or ?approved by the Food and Drug Administration. ??Sufd-Kt-6-Ab ?Negative ?Negative ?This test was developed and its performance characteristics ?determined by [facility]. It has not been cleared or ?approved by the Food and Drug Administration. ??Lnmm-AJK-2gcref Ab ?<20 ?Units ??<20 ?This test was developed and its performance characteristics ?determined by [facility]. It has not been cleared or ?approved by the Food and Drug Administration. ??Anti-MDA-5 Ab (CADM-140) ?<20 ?Units ??<20 ?This test was developed and its performance characteristics ?determined by [facility]. It has not been cleared or ?approved by the Food and Drug Administration. ??Anti-NXP-2 (P140) Ab ?<20 ?Units ??<20 ?This test was developed and its performance characteristics ?determined by [facility]. It has not been cleared or ?approved by the Food and Drug Administration. ??Anti-PM/Scl-100 Ab ?39 ?H ?Units ??<20 ?This test was developed and its performance characteristics ?determined by [facility]. It has not been cleared or ?approved by the Food and Drug Administration. ??Anti-Ku Ab ?Negative ?Negative ?This test was developed and its performance characteristics ?determined by [facility]. It has not been cleared or ?approved by the Food and Drug Administration. ??Anti-SS-A 52kD Ab, IgG ?<20 ?Units ??<20 ?This test was developed and its performance characteristics ?determined by [facility]. It has not been cleared or ?approved by the Food and Drug Administration. ??Anti-U1 WALLPAPER INSPECTOR Ab ?<20 ?Units ??<20 ?Anti-U2 WALLPAPER INSPECTOR Ab ?Negative ?Negative ?This test was developed and its performance characteristics ?determined by [facility]. It has not been cleared or ?approved by the Food and Drug Administration. ??Anti-U3 WALLPAPER INSPECTOR (Fibrillarin) ? Negative ?Negative ?This test was developed and its performance characteristics ?determined by [facility]. It has not been cleared or ?approved by the Food and Drug Administration. ?Interpretation for Anti-Lora-1, [id number], ?Anti-MDA-5, Anti-NXP-2, Anti-PM/Scl-100, ?Anti-SS-A 52 kD, Anti-U1 WALLPAPER INSPECTOR: ?Negative: ?<20 ?Weak Positive: ? 20 - 39 ?Moderate Positive: ? 40 - 80 ?Strong Positive: ? >80 ?. ?Test Performed by: ?[facility] ?[address] ?[place] [address] Blood 08/31/2024 11:5 6 AM CDT 08/31/2024 1:01 PM CDT Akash Clements MD LAB BLOOD ORDERABLES Final Resul t Performing Organization Address [facility] de Phone Number [facility] (ADAIR) [address] [facility] [place] [address] Min ref Lab * Anti-double stranded DNA abs (08/31/2024 11:56 AM CDT) dsDNA Ab <1.0 <=4.0 IUnits/mL Comment: Interpretive Data Negative: < or = 4 IUnits/mL Indeterminate: 5 - 9 IUnits/mL Positive: > or = 10 IUnits/mL Current interpretive data was last revised on 2017. Testing performed by: [facility], [address] [place] [address], [place]., [address] Blood 08/31/2024 11:5 6 AM CDT 08/31/2024 2:08 PM CDT Akash Clements MD LAB BLOOD ORDERABLES Final Resul t Performing Organization Address [facility] Co de Phone Number [facility] (GUERA) [address] [facility] [place] [address] * Ribosomal P ab (08/31/2024 11:56 AM CDT) Ribosomal ab <0.2 <=0.9 Ab Index Comment: Interpretive Data Negative: < 1.0 Ab Index Positive: > or = 1.0 Ab Index Current interpretive data was last revised on 2017. Testing performed by: [facility], [address] [place]., [address] Blood 08/31/2024 11:5 6 AM CDT 08/31/2024 2:08 PM CDT Akash Clements MD LAB BLOOD ORDERABLES Final Resul t [facility]OD [facility] (ADAIR) 1 [facility] [place] [address] * Centromere ab IgG (08/31/2024 11:56 AM CDT) Anticentromere <0.2 <=0.9 Ab Index Comment:Testing performed by : [facility], [address] [place] [address]., [id number] Blood 08/31/2024 11:5 6 AM CDT 08/31/2024 2:08 PM CDT Akash Clements MD LAB BLOOD ORDERABLES Final Resul t Performing Organization Address City/[facility] Co de Phone Number [facility]OD [facility] (ADAIR) [address] [place] [address] [place] [address] * VIJAY ab ql w/rflx to VIJAY qn (08/15/2024 7:44 AM CDT) VIJAY Negative Comment: Interpretive Data Normal range for VIJAY Qualitative Antibody = Negative. 1. VIJAY is performed using indirect immunofluorescence against HEp-2 cells 2. VIJAY titers are performed on all positive qualitative results. 3. A significantly positive VIJAY result is defined as a positive nuclear fluorescence at a titer of 1:80 or greater. 4. 15% of normal people above age 65 have significantly positive VIJAY results. ??5% or less of normal people age 65 or under have significantly positive VIJAY results. Current interpretive data was last revised on 2020. Testing performed by: [facility], [address] [place] [address], [place] [address] Blood 08/15/2024 7:44 AM CDT 08/15/2024 12:06 PM CDT us Akash Clements MD LAB BLOOD ORDERABLES Final Resul t [facility] (ADAIR) 1 [facility] [place] [address] * SCL 70 abs (08/15/2024 7:44 AM CDT) Anti-Scl70, IgG <0.2 <=0.9 Ab Index Comment: Interpretive Data Negative: < 1.0 Ab Index Positive: > or = 1.0 Ab Index Current interpretive data was last revised on 2017. Testing performed by: [facility], [address] [place] [address]., [id number] Blood 08/15/2024 7:44 AM CDT 08/15/2024 12:06 PM CDT Akash Clements MD LAB BLOOD ORDERABLES Final Resul t Performing Organization Address [facility] Co de Phone Number [facility] (ADAIR) [address] [place] [phone] * Morgan abs (08/15/2024 7:44 AM CDT) Anti-BOB, SM <0.2 <=0.9 Ab Index Comment: Interpretive Data Negative: < 1.0 Ab Index Positive: > or = 1.0 Ab Index Current interpretive data was last revised on 2017. Testing performed by: [facility], [address] [place] [address], [place] [address] Blood 08/15/2024 7:44 AM CDT 08/15/2024 12:06 PM CDT us Akash Clements MD LAB BLOOD ORDERABLES Final Resul t [facility] (ADAIR) [address] [place] [address] * WALLPAPER INSPECTOR abs (08/15/2024 7:44 AM CDT) WALLPAPER INSPECTOR ab <0.2 <=0.9 Ab Index Comment: Interpretive Data Negative: < 1.0 Ab Index Positive: > or = 1.0 Ab Index Current interpretive data was last revised on 2017. Testing performed by: [facility], [address] [place] [address], [id number] Blood 08/15/2024 7:44 AM CDT 08/15/2024 12:06 PM CDT Akash Clements MD LAB BLOOD ORDERABLES Final Resul t Performing Organization Address [facility] Co de Phone Number [facility] (ADAIR) [address] [place] [address] * (ABNORMAL) BOB ab eval w/reflex (08/15/2024 7:44 AM CDT) BOB ab Positive( A) Negative Comment: Interpretive Data Positive Screens will be reflexed to specific testing for Antibodies against the following antigens: Lora-1 Ab, WALLPAPER INSPECTOR Ab, Scl-70 Ab, Morgan Ab, SS-A/Ro Ab, and SS- B/La Ab. Further testing for dsDNA, Centromere, or Ribosomal P antibodies is suggested in patient with a positive screen and negative specific antibodies. Current interpretive data was last revised on 2023. Testing performed by: [facility], [address] [place] [address]., [id number] Blood 08/15/2024 7:44 AM CDT 08/15/2024 12:05 PM CDT Akash Clements MD LAB BLOOD ORDERABLES Final Resul t Performing Organization Address City/[facility]/ZIP Co de Phone Number [facility] (ADAIR) [address] [facility] [place] [address] * Lora-1 antibody (08/15/2024 7:44 AM CDT) Lora 1 Antibody, IgG <0.2 <=0.9 Ab Index Comment: Interpretive Data Negative: < 1.0 Ab Index Positive: > or = 1.0 Ab Index Current interpretive data was last revised on 2017. Testing performed by: [facility], [address] [place]., [address] Blood 08/15/2024 7:44 AM CDT 08/15/2024 12:06 PM CDT Akash Clements MD LAB BLOOD ORDERABLES Final Resul t Performing Organization Address City/[facility]/ZIP Co de Phone Number [facility] (ADAIR) [address] [place] [address] [place] [address] * Cyclic citrul peptide antibody, IgG (08/15/2024 7:44 AM CDT) CCP Ab <0.5 <=2.9 units/mL Comment: Interpretive data Negative: <3 units/mL Positive: > or equal to 3 units/mL Current interpretive data was last revised on 2017. Testing performed by: [facility], [address] [place]., [address] Blood 08/15/2024 7:44 AM CDT 08/15/2024 12:06 PM CDT Akash Clements MD LAB BLOOD ORDERABLES Final Resul t [facility] (ICJUB) [address] [place] [address] [place] [address] * Sjogren's syndrome B ab (08/15/2024 7:44 AM CDT) Anti-BOB, SS-B <0.2 <=0.9 Ab Index Comment: Interpretive Data Negative: < 1.0 Ab Index Positive: > or = 1.0 Ab Index Current interpretive data was last revised on 2017. Testing performed by: [facility], [address] [place] [address]., [id number] Blood 08/15/2024 7:44 AM CDT 08/15/2024 12:06 PM CDT Akash Clements MD LAB BLOOD ORDERABLES Final Resul t Performing Organization Address [facility] Co de Phone Number ROD MONROY (ADAIR) [address] [place] [phone] * Sjogren's syndrome A ab (08/15/2024 7:44 AM CDT) Anti-BOB, SS-A <0.2 <=0.9 Ab Index Comment: Interpretive Data Negative: < 1.0 Ab Index Positive: > or = 1.0 Ab Index Current interpretive data was last revised on 2017. Testing performed by: [facility], [address] [place] [address]., [id number] Blood 08/15/2024 7:44 AM CDT 08/15/2024 12:06 PM CDT us Akash Clements MD LAB BLOOD ORDERABLES Final Resul t Performing Organization Address [facility] de Phone Number [facility] (ADAIR) [address] [place] [address] * Rheumatoid factor (08/15/2024 7:44 AM CDT) Rheumatoid factor, quant <10 <=15 IUnits/mL Comment:Testing performed by : [facility], [address] [place] [address]., [id number] Blood 08/15/2024 7:44 AM CDT 08/15/2024 11:15 AM CDT Akash Clements MD LAB BLOOD ORDERABLES Final Resul t Performing Organization Address City/[facility] Co de Phone Number ROD MONROY (GUERA) [address] [facility] [place] [address] * CT Chest High Resolution WO Contrast (08/15/2024 7:32 AM CDT) Anatomical Region Laterality Modality Chest N/A Computed Tomogra phy 08/20/2024 7:51 AM CDT Narrative 08/20/2024 8:21 AM CDT EXAM DESCRIPTION: ?? CT CHEST HIGH RESOLUTION WO CONTRAST REASON FOR STUDY: ?? Interstitial lung disease ?? C/o shortness of breath for a year and productive cough for a few months ?? Hx of asthma and chronic bronchitis ?? Non smoker ? TECHNIQUE: CT scan of the chest performed without intravenous contrast using helical scanning technique. ??Inspiratory and expiratory images were acquired. ?Prone inspiratory images were acquired. ??Reconstructed coronal and sagittal MPR images reviewed. ??All images stored on PACS. Automated exposure control was used as a dose optimization technique for this examination. COMPARISON: 09/08/2023 REFERENCE: Per ACR white paper recommendations, unless otherwise specified no follow-up imaging is recommended for incidental renal and adrenal lesions per consensus recommendations based on imaging criteria. Further lab evaluation could be pursued based on clinical findings. FINDINGS: HARDWARE/LINES/TUBES: ??None. VASCULATURE: ??Multifocal atherosclerotic changes of the thoracic aorta and its major branches without aneurysm. ??Main pulmonary artery measures within normal limits. ?? MEDIASTINUM/HEART: ??Mitral annulus calcifications. ??Heart size within normal limits. ??No significant pericardial effusion. ??Small hiatal hernia. CORONARY ARTERY CALCIFICATION: ??No significant coronary atherosclerotic calcifications. LYMPH NODES: ??No pathologically enlarged thoracic lymphadenopathy. AIRWAY/LUNGS/PLEURA: Lung Volumes: ??Normal. Reticulation: ??Present. Traction Bronchiectasis: ??Present. Honeycombing: ??Absent. Nodularity: ??Absent. Cysts: ??Absent. Ground-glass Opacities: ??Present, but not a dominant feature. Consolidation: ??Absent. Mosaic Attenuation/Air Trapping: ??Absent Axial Distribution: ??Peripheral predominant. Zonal Distribution: ??Lower lung predominant. Inventory Audit Clerk Time: ??No significant change/progression over time. Complications: ??None. Other: ??Biapical pleural-parenchymal scarring. UPPER ABDOMEN: ??Small hiatal hernia as above. ??No acute abnormality within the visualized abdomen. ??Scattered colonic diverticuli without acute inflammation. BONES/SOFT TISSUES: ??No aggressive appearing osseous lesions. ??No acute osseous abnormality. ??Mixed lucent and sclerotic lesion of the T10 vertebral body is unchanged from prior and may reflect hemangioma with adjacent bone island (such as 7; 61). ?Normal-appearing thyroid. 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 ?? Differential includes fibrotic NSIP pattern. ??Recommend continued attention on follow-up. Suggest pulmonary medicine consultation to evaluate for potential etiology (such as drug reaction, connective tissue disease, or asbestosis) or consider diagnosis of exclusion of idiopathic pulmonary fibrosis. Small hiatal hernia. Incidental and chronic findings as above. THIS IS AN ELECTRONICALLY VERIFIED FINAL REPORT 08/20/2024 8:21 AM - Electronically signed by ??Terry Richey M.D. NS: NS D: ??08/20/2024 8:21 AM T: ??08/20/2024 8:21 AM Report ID: [id number] Reading Location: ??[id number] Procedure Note Terry Richey MD - 08/20/2024 EXAM DESCRIPTION: CT CHEST HIGH RESOLUTION WO CONTRAST REASON FOR STUDY: Interstitial lung disease C/o shortness of breath for a year and productive cough for a few monthsHx of asthma and chronic bronchitis Non smoker TECHNIQUE: CT scan of the chest performed without intravenous contrastusing helical scanning technique. Inspiratory and expiratory images wereacquired. Prone inspiratory images were acquired. Reconstructed coronal andsagittal MPR images reviewed. All images stored on PACS. Automated exposurecontrol was used as a dose optimization technique for this examination. COMPARISON: 09/08/2023 REFERENCE: Per ACR white paper recommendations, unless otherwise specifiedno follow-up imaging is recommended for incidental renal and adrenal lesionsper consensus recommendations based on imaging criteria. Further labevaluation could be pursued based on clinical findings. FINDINGS: HARDWARE/LINES/TUBES: None. VASCULATURE: Multifocal atherosclerotic changes of the thoracic aorta andits major branches without aneurysm. Main pulmonary artery measures withinnormal limits. MEDIASTINUM/HEART: Mitral annulus calcifications. Heart size withinnormal limits. No significant pericardial effusion. Small hiatal hernia. CORONARY ARTERY CALCIFICATION: No significant coronary atherosclerotic calcifications. LYMPH NODES: No pathologically enlarged thoracic lymphadenopathy. AIRWAY/LUNGS/PLEURA: Lung Volumes: Normal. Reticulation: Present. Traction Bronchiectasis: Present. Honeycombing: Absent. Nodularity: Absent. Cysts: Absent. Ground-glass Opacities: Present, but not a dominant feature. Consolidation: Absent. Mosaic Attenuation/Air Trapping: Absent Axial Distribution: Peripheral predominant. Zonal Distribution: Lower lung predominant. Inventory Audit Clerk Time: No significant change/progression over time. Complications: None. Other: Biapical pleural-parenchymal scarring. UPPER ABDOMEN: Small hiatal hernia as above. No acute abnormality withinthe visualized abdomen. Scattered colonic diverticuli without acuteinflammation. BONES/SOFT TISSUES: No aggressive appearing osseous lesions. No acute osseous abnormality. Mixed lucent and sclerotic lesion of the [id number] body is unchanged from prior and may reflect hemangioma with adjacent bone island (such as 7; 61). Normal-appearing thyroid. 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 Differential includes fibrotic NSIP pattern. Recommend continuedattention on follow-up. Suggest pulmonary medicine consultation to evaluate forpotential etiology (such as drug reaction, connective tissue disease, or asbestosis)or consider diagnosis of exclusion of idiopathic pulmonary fibrosis. Small hiatal hernia. Incidental and chronic findings as above. THIS IS AN ELECTRONICALLY VERIFIED FINAL REPORT 08/20/2024 8:21 AM - Electronically signed by Terry Richey M.D. NS: NS Report ID: [id number] Reading Location: [id number] Akash Clements MD IMG CT PROCEDURES Final Result from Last 3 Months Insurance [facility] Advance Directives For more information, please contact: [phone] * Full Code (Latest Code Status on File) Date Activated Date Inactivated Comments 05/19/2018 2:04 PM 05/19/2018 5:08 PM Care Teams Dev Manager Relationship Specialty Start Date End Date Vadim Cameron MD [address] [place] [address] PCP - General Family Medicine 09/06/24
--- OUTSIDE RECORDS SUMMARY | 2024-11-09 13:43 | XMS_ITS | Encounter Summary ---
Author Organization [facility] Healthcare Address [address] [place] [address] Care Team Providers Care Rawhide Trimmer Name Role Phone Vadim Cameron MD Primary Care Provider Encounter Details Date Type Department Care Team (Late st Contact Info) Description 10/17/2024 Telephone [facility] Medical Group Gastroenterology at [address] [place] [address] Andrew Nava, DO [address] [address] Social History Tobacco Use Types Packs/Day Years Used Date Smoking Tobacco: Never Smokeless Tobacco: Never Alcohol Use Standard Drinks/Week Comments Yes 0 (1 standard drink = 0.6 oz pur e alcohol) occasionally Comments Unknown Sex and Gender Information Value Date Recorded Sex Assigned at Not on file Legal Sex Female 9:29 AM TOOL INSPECTOR Gender Identity Not on file Sexual Orientation Not on file documented as of this encounter Miscellaneous Notes * Telephone Encounter - Leann De León - 10/17/2024 12:11 PM CST Mrs. Sarabia for an EGD on 11-22-2024 @ 12:00 pm Pt on blood thinner (if yes, list medication and reason for taking): no Has pt had recent stent placement within the last year: no Pt have pacemaker/defibrillator: no Pt diabetic (if yes, insulin or oral meds): no Pt takes injections for weight loss: no Pt have kidney disease or on dialysis: no Pt on iron: no Mechanical Heart valve: no Instructed pt to call with any medical changes and/or medications/insurance. INSPECTOR documented in this encounter Plan of Treatment Upcoming Encounters Date Type Department Care Team (Latest Contact Info) Description 11/22/2024 12:00 PM TOOL INSPECTOR Hospital Encounter [address] [address] Andrew Nava, DO [address] [address] 11/22/2024 12:00 PM TOOL INSPECTOR - 11/22/2024 12:30 PM TOOL INSPECTOR Surgery [address] [address] Andrew Nava, DO [address] [address] ESOPHAGOGASTRODUODENOSCOPY Scheduled Procedures Name Priority Associated Diagnoses Date/Ti al ESOPHAGOGASTRODUODENOSCOPY Dysphagia, unspecified type 11/22/2024 12:00 PM TOOL INSPECTOR documented as of this encounter Visit Diagnoses Diagnosis Dysphagia, unspecified type- Primary Dysphagia- Primary Dysphagia, unspecified type documented in this encounter Orders Case Request Count Last Ordered Date First Orde red Date CASE REQUEST GI 1 10/17/2024 documented in this encounter Care Teams Rawhide Trimmer Relationship Specialty Start Date End Date Vadim Cameron MD [address] [address] PCP - General Family Medicine 09/06/24 documented as of this encounter
--- OUTSIDE RECORDS SUMMARY | 2024-11-09 13:43 | XMS_ITS | Encounter Summary ---
Author Organization [facility] Healthcare Address [address] [place] [address] Care Team Providers Care House Superintendent Name Role Phone Vadim Cameron MD Primary Care Provider [phone] Encounter Details Date Type Department Care Team (Late st Contact Info) Description 08/15/2024 8:00 AM CDT Lab [address] [address] Pulmonary fibrosis (CMS/HCC) (HCC) Social History Tobacco Use Types Packs/Day Years Used Date Smoking Tobacco: Never Smokeless Tobacco: Never Alcohol Use Standard Drinks/Week Comments Yes 0 (1 standard drink = 0.6 oz pur e alcohol) occasionally Comments Unknown Sex and Gender Information Value Date Recorded Sex Assigned at Not on file Legal Sex Female 9:29 AM OFFICE ADMINISTRATIVE ASSISTANT Gender Identity Not on file Sexual Orientation Not on file documented as of this encounter Plan of Treatment Upcoming Encounters Date Type Department Care Team (Latest Contact Info) Description 11/22/2024 12:00 PM OFFICE ADMINISTRATIVE ASSISTANT Hospital Encounter [address] [address] Andrew Nava, DO [address] [facility] [place] [address] [place] [address] 11/22/2024 12:00 PM OFFICE ADMINISTRATIVE ASSISTANT - 11/22/2024 12:30 PM OFFICE ADMINISTRATIVE ASSISTANT Surgery [address] [address] Andrew Nava, DO [address] [place] [address] [place] [address] ESOPHAGOGASTRODUODENOSCOPY Scheduled Procedures Name Priority Associated Diagnoses Date/Ti id ESOPHAGOGASTRODUODENOSCOPY Dysphagia, unspecified type 11/22/2024 12:00 PM OFFICE ADMINISTRATIVE ASSISTANT documented as of this encounter Procedures Procedure Name Priority Date/Time Associated Diagnosis Comments VIJAY QUALITATIVE WITH REFLEX TO VIJAY QUANTITATIVE Routine 08/15/2024 7:44 AM CDT Pulmonary fibrosis (CMS/HCC) (HCC) SCL 70 ANTIBODIES Routine 08/15/2024 7:4 4 AM CDT Pulmonary fibrosis (CMS/HCC) (HCC) MORGAN ANTIBODIES Routine 08/15/2024 7:44 AM CDT Pulmonary fibrosis (CMS/HCC) (HCC) DRESSING MACHINE OPERATOR ANTIBODIES Routine 08/15/2024 7:44 AM CDT Pulmonary fibrosis (CMS/HCC) (HCC) BOB ANTIBODY EVALUATION WITH REFLEX Routine 08/15/2024 7:44 AM CDT Pulmonary fibrosis (CMS/HCC) (HCC) AMBREEN-1 ANTIBODY Routine 08/15/2024 7:44 AM CDT Pulmonary fibrosis (CMS/HCC) (HCC) CYCLIC CITRUL PEPTIDE ANTIBODY, IGG Routine 08/15/2024 7:44 AM CDT Pulmonary fibrosis (CMS/HCC) (HCC) SJOGRENS SYNDROME-B ANTIBODY Routine 08/15/2024 7:44 AM CDT Pulmonary fibrosis (CMS/HCC) (HCC) SJOGRENS SYNDROME-A ANTIBODY Routine 08/15/2024 7:44 AM CDT Pulmonary fibrosis (CMS/HCC) (HCC) RHEUMATOID FACTOR Routine 08/15/2024 7:4 4 AM CDT Pulmonary fibrosis (CMS/HCC) (HCC) documented in this encounter Results * Ambreen-1 antibody (08/15/2024 7:44 AM CDT) Ambreen 1 Antibody, IgG <0.2 <=0.9 Ab Index Comment: Interpretive Data Negative: < 1.0 Ab Index Positive: > or = 1.0 Ab Index Current interpretive data was last revised on 2017. Testing performed by: [facility], [address] [place]., [address] Blood 08/15/2024 7:44 AM CDT 08/15/2024 12:06 PM CDT Akash Clements MD LAB BLOOD ORDERABLES Final Resul t Performing Organization Address City/[facility]/ZIP Co de Phone Number [facility] ([employer]) [address] [place] [address] [place] [address] * SCL 70 abs (08/15/2024 7:44 AM CDT) Anti-Scl70, IgG <0.2 <=0.9 Ab Index Comment: Interpretive Data Negative: < 1.0 Ab Index Positive: > or = 1.0 Ab Index Current interpretive data was last revised on 2017. Testing performed by: [facility], [address] [place] [address]., [address] Blood 08/15/2024 7:44 AM CDT 08/15/2024 12:06 PM CDT Akash Clements MD LAB BLOOD ORDERABLES Final Resul t [facility] ([facility]) [address] [place] [address] [place] [address] * DRESSING MACHINE OPERATOR abs (08/15/2024 7:44 AM CDT) DRESSING MACHINE OPERATOR ab <0.2 <=0.9 Ab Index Comment: Interpretive Data Negative: < 1.0 Ab Index Positive: > or = 1.0 Ab Index Current interpretive data was last revised on 2017. Testing performed by: [facility], [address] [place] [address]., [id number] Blood 08/15/2024 7:44 AM CDT 08/15/2024 12:06 PM CDT Akash Clements MD LAB BLOOD ORDERABLES Final Resul t [facility] ([employer]) [address] [place] [address] [employer] [address] * Morgan abs (08/15/2024 7:44 AM CDT) Anti-BOB, SM <0.2 <=0.9 Ab Index Comment: Interpretive Data Negative: < 1.0 Ab Index Positive: > or = 1.0 Ab Index Current interpretive data was last revised on 2017. Testing performed by: [facility], [address] [place] [address], [id number] Blood 08/15/2024 7:44 AM CDT 08/15/2024 12:06 PM CDT Akash Clements MD LAB BLOOD ORDERABLES Final Resul t Performing Organization Address City/[facility]/ZIP Co de Phone Number [facility] ([employer]) [address] [place] [address] * Sjogren's syndrome B ab (08/15/2024 7:44 AM CDT) Anti-BOB, SS-B <0.2 <=0.9 Ab Index Comment: Interpretive Data Negative: < 1.0 Ab Index Positive: > or = 1.0 Ab Index Current interpretive data was last revised on 2017. Testing performed by: [facility], [address] [place] [address]., [id number] Blood 08/15/2024 7:44 AM CDT 08/15/2024 12:06 PM CDT us Akash Clements MD LAB BLOOD ORDERABLES Final Resul t Performing Organization Address [facility] Co de Phone Number [facility] [employer]) [address] [facility] [place] [employer] [address] * Sjogren's syndrome A ab (08/15/2024 7:44 AM CDT) Anti-BOB, SS-A <0.2 <=0.9 Ab Index Comment: Interpretive Data Negative: < 1.0 Ab Index Positive: > or = 1.0 Ab Index Current interpretive data was last revised on 2017. Testing performed by: [facility], [address] [place] [address]., [id number] Blood 08/15/2024 7:44 AM CDT 08/15/2024 12:06 PM CDT Akash Clements MD LAB BLOOD ORDERABLES Final Resul t Performing Organization Address [facility] de Phone Number [facility] ([employer]) 1 [facility] [place] [address] * VIJAY ab ql w/rflx to VIJAY [...] last revised on 2020. Testing performed by: [facility], [address] [place] [address]., [id number] Blood 08/15/2024 7:44 AM CDT 08/15/2024 12:06 PM CDT Akash Clements MD LAB BLOOD ORDERABLES Final Resul t Performing Organization Address [facility] Co de Phone Number [facility] ([facility]) 1 [facility] [employer] [address] * (ABNORMAL) BOB ab eval w/reflex (08/15/2024 7:44 AM CDT) BOB ab Positive( A) Negative Comment: Interpretive Data Positive Screens will be reflexed to specific testing for Antibodies against the following antigens: Ambreen-1 Ab, DRESSING MACHINE OPERATOR Ab, Scl-70 Ab, Morgan Ab, SS-A/Ro Ab, and SS- B/La Ab. Further testing for dsDNA, Centromere, or Ribosomal P antibodies is suggested in patient with a positive screen and negative specific antibodies. Current interpretive data was last revised on 2023. Testing performed by: [facility], [address] [place] [address]., [address] Blood 08/15/2024 7:44 AM CDT 08/15/2024 12:05 PM CDT Akash Clements MD LAB BLOOD ORDERABLES Final Resul t Performing Organization Address [facility] Co de Phone Number [facility] ([employer]) 1 [facility] [place] [employer] [address] * Cyclic citrul peptide antibody, IgG (08/15/2024 7:44 AM CDT) CCP Ab <0.5 <=2.9 units/mL Comment: Interpretive data Negative: <3 units/mL Positive: > or equal to 3 units/mL Current interpretive data was last revised on 2017. Testing performed by: [facility], [address] [place] [address], [place]., [address] Blood 08/15/2024 7:44 AM CDT 08/15/2024 12:06 PM CDT Akash Clements MD LAB BLOOD ORDERABLES Final Resul t Performing Organization Address City/[facility] Co de Phone Number [facility] ([facility]) 1 [facility] Department [place] [address] * Rheumatoid factor (08/15/2024 7:44 AM CDT) Rheumatoid factor, quant <10 <=15 IUnits/mL Comment:Testing performed by : [facility], [address] [place] [address], [facility], [address] Blood 08/15/2024 7:44 AM CDT 08/15/2024 11:15 AM CDT us Akash Clements MD LAB BLOOD ORDERABLES Final Resul t Performing Organization Address [facility] Co de Phone Number [facility] ([place]) 1 [facility] [place] [address] documented in this encounter Visit Diagnoses Diagnosis Pulmonary fibrosis (CMS/HCC) (HCC) Postinflammatory pulmonary fibrosis Dysphagia, unspecified type documented in this encounter Care Teams House Superintendent Relationship Specialty Start Date End Date Vadim Cameron MD PCP - General 05/17/18 09/05/24 documented as of this encounter
--- OUTSIDE RECORDS SUMMARY | 2024-11-09 13:43 | XMS_ITS | Encounter Summary ---
Author Organization [facility] Healthcare Address [address] [place] [address] Care Team Providers Care Bid Clerk Name Role Phone Vadim Cameron MD Primary Care Provider [phone] Reason for Visit * Reason Onset Date Comments PA Asmanex 09/10/2024 Encounter Details Date Type Department Care Team ([facility] st Contact Info) Description 09/10/2024 Telephone [facility] Medical Group Pulmonary at [address] [address] Veda Neely LPN PA Asmanex Social History Tobacco Use Types Packs/Day Years Used Date Smoking Tobacco: Never Smokeless Tobacco: Never Alcohol Use Standard Drinks/Week Comments Yes 0 (1 standard drink = 0.6 oz pur e alcohol) occasionally Comments Unknown Sex and Gender Information Value Date Recorded Sex Assigned at Not on file Legal Sex Female 9:29 AM DUCT INSTALLER Gender Identity Not on file Sexual Orientation Not on file documented as of this encounter Ordered Prescriptions Prescription Sig Dispense Quantity Refills Last Filled Start Date End Date mometasone (Asmanex Twisthaler) 220 mcg/ actuation (30) aerosol powdr breath activated Inhale 2 puffs daily 1 each 3 09/12/2024 documented in this encounter Miscellaneous Notes * Telephone Encounter - Veda Neely LPN - 09/12/2024 11:15 AM DUCT INSTALLER Pt was contacted and was made aware that Twisthaler was sent in today. Patient verbalized understanding. INSTALLER * Telephone Encounter - Nilda Williamson NP - 09/12/2024 11:01 AM DUCT INSTALLER RX sent Thanks INSTALLER * Telephone Encounter - Veda Neely LPN - 09/12/2024 8:25 AM CST PA denied for Asmanex HFA. [employer] did say they will cover Amanex twisthaler without a PA. INSTALLER * Telephone Encounter - Veda Neely LPN - 09/10/2024 3:08 PM CST PA started thru Cover my meds for Asmanex. Awaiting approval. INSTALLER documented in this encounter Plan of Treatment Upcoming Encounters Date Type Department Care Team (Latest Contact Info) Description 11/22/2024 12:00 PM DUCT INSTALLER Hospital Encounter [address] [address] Andrew Nava, DO [address] [address] 11/22/2024 12:00 PM DUCT INSTALLER - 11/22/2024 12:30 PM DUCT INSTALLER Surgery [address] [address] Andrew Nava, DO [address] [address] ESOPHAGOGASTRODUODENOSCOPY Scheduled Procedures Name Priority Associated Diagnoses Date/Ti ct ESOPHAGOGASTRODUODENOSCOPY Dysphagia, unspecified type 11/22/2024 12:00 PM DUCT INSTALLER documented as of this encounter Visit Diagnoses Not on filedocumented in this encounter Discontinued Medications Medication Sig Discontinue Reason Start Date End Da te mometasone (ASMANEX) 200 mcg/actuation inhalerIndications:Mild intermittent asthma without complication Inhale 2 puffs 2 (two) times a day Rinse mouth with water after use. Do not swallow. Alternate therapy 09/10/2024 09/12/2024 documented as of this encounter Care Teams Bid Clerk Relationship Specialty Start Date End Date Vadim Cameron MD [address] [place] [address] PCP - General Family Medicine 09/06/24 documented as of this encounter
--- OUTSIDE RECORDS SUMMARY | 2024-11-09 13:43 | XMS_ITS | Encounter Summary ---
Author Organization [facility] Address [address] [place] [address] Care Team Providers Care Steel Placer Name Role Phone Vadim Cameron MD Primary Care Provider [phone] Reason for Referral * MRI/CAT/PET Scan (Routine) - Closed Specialty Diagnoses / Procedures Referred By Contac t Referred To Contact Radiology Diagnoses Pulmonary fibrosis (CMS/HCC) (HCC) Procedures CT Chest High Resolution WO Contrast Akash Clements MD [address] [place] [address] DR COLEMAN [address] [place] [address] Phone: tel: fax: [address] [phone] Referral ID Status Reason Start Date Expiration Date Visits Re quested Visits Authorized [id number] Closed 07/30/2024 07/30/2025 1 1 Reason for Visit * MRI/CAT/PET Scan (Routine) - Closed Specialty Diagnoses / Procedures Referred By Contac t Referred To Contact Radiology Diagnoses Pulmonary fibrosis (CMS/HCC) (HCC) Procedures CT Chest High Resolution WO Contrast Akash Clements MD [address] [place] [address] DR COLEMAN [address] [place] [address] Phone: tel: fax: [address] [phone] Referral ID Status Reason Start Date Expiration Date Visits Re quested Visits Authorized [id number] Closed 07/30/2024 07/30/2025 1 1 Encounter Details Date Type Department Care Team (Latest Contact Info) Description 08/15/2024 7:11 AM CDT - 08/15/2024 11:59 PM CDT Hospital Encounter [facility] [address] [place] [address] Pulmonary fibrosis (CMS/HCC) (HCC) Discharge Disposition: Discharge to home or self care Social History Tobacco Use Types Packs/Day Years Used Date Smoking Tobacco: Never Smokeless Tobacco: Never Alcohol Use Standard Drinks/Week Comments Yes 0 (1 standard drink = 0.6 oz pur e alcohol) occasionally Comments Unknown Sex and Gender Information Value Date Recorded Sex Assigned at Not on file Legal Sex Female 9:29 AM LIP CUTTER Gender Identity Not on file Sexual Orientation Not on file documented as of this encounter Medications at Time of Discharge albuterol 2.5 mg /3 mL (0.083 %) nebulizer solution Take 3 mL (2.5 mg total) by nebulization every 6 (six) hours as needed for wheezing or shortness of breath ALPRAZolam (XANAX) 0.5 mg tablet Take 1 tablet (0.5 mg total) by mouth PRN for procedure coming up in Jul 2024 07/04/2024 ascorbic acid (VITAMIN C) 1,000 mg tablet Take 1 tablet (1,000 mg total) by mouth daily atorvastatin (LIPITOR) 10 mg tablet Take 1 tablet (10 mg total) by mouth daily 0 05/01/2018 azelastine (ASTELIN) 137 mcg (0.1 %) nasal spray 1 spray 2 (two) times a day as needed 1 04/07/2018 B.breve-L.acid-L .rham-S.thermo 3 billion cell tablet,chewable Take 1 tablet/chew tab by mouth daily. cetirizine (ZyrTEC) 10 mg tablet Take 1 tablet (10 mg total) by mouth daily cholecalciferol (VITAMIN D-3) 2000 unit capsule Take 1 capsule (2,000 Units total) by mouth daily famotidine (PEPCID) 40 mg tablet Take 1 tablet (40 mg total) by mouth daily as needed for heartburn or indigestion garlic 1,000 mg capsule Take 2,000 mg by mouth 2 (two) times a day hxwwuihb-ykkv-kq n-folic acid 3,500-18-0.4 unit-mg-mg tablet,chewableI ndications:stop 5 days before surgery Take 1 tablet/chew tab by mouth daily. naproxen sodium 220 mg capsuleIndicatio ns:stop 5 days before surgery Take 220 mg by mouth 2 (two) times a day as needed. uhrug-6-uns-epa- dpa-fish oil 1,050-1,200 mg capsuleIndicatio ns:stop 5 days before surgery Take 1 capsule by mouth daily PROAIR HFA 90 mcg/actuation inhaler Inhale 2 puffs every 8 (eight) hours as needed 1 04/12/2018 turmeric root extract 500 mg capsule Take 1,000 mg by mouth daily HYDROcodone-acet aminophen (NORCO) 5-325 mg per tabletIndication s:Pain Take 2 tablets by mouth every 6 (six) hours as needed for pain. 40 tablet 05/19/2018 4 SYMBICORT 160-4.5 mcg/actuation inhaler Inhale 2 puffs 2 (two) times a day 0 02/06/2018 4 documented as of this encounter Discharge Disposition Disposition Code Departure Means Destination Discharge to home or self care documented in this encounter Plan of Treatment Upcoming Encounters Date Type Department Care Team (Latest Contact Info) Description 11/22/2024 12:00 PM LIP CUTTER Hospital Encounter [address] [address] Andrew Nava, DO [address] [address] 11/22/2024 12:00 PM LIP CUTTER - 11/22/2024 12:30 PM LIP CUTTER Surgery [address] [address] Andrew Nava, DO 3 [facility] [address] [place] [address] ESOPHAGOGASTRODUODENOSCOPY Scheduled Procedures Name Priority Associated Diagnoses Date/Ti me ESOPHAGOGASTRODUODENOSCOPY Dysphagia, unspecified type 11/22/2024 12:00 PM LIP CUTTER documented as of this encounter Procedures Procedure Name Priority Date/Time Associated Diagnosis Comments CT CHEST HIGH RESOLUTION WO CONTRAST Schedule Routine, Read Routine (OP Routine) 08/15/2024 7:32 AM CDT Pulmonary fibrosis (CMS/HCC) (HCC) documented in this encounter Results * CT Chest High Resolution WO Contrast [...] ??Peripheral predominant. Zonal Distribution: ??Lower lung predominant. Tractor Operator Laser Leveling Time: ??No significant change/progression over time. Complications: [...] AM T: ??08/20/2024 8:21 AM Report ID: [id number] Reading Location: ??[id number] Procedure Note Terry Richey MD - 08/20/2024 [...] Peripheral predominant. Zonal Distribution: Lower lung predominant. Tractor Operator Laser Leveling Time: No significant change/progression over time. Complications: None. Other: Biapical pleural-parenchymal scarring. UPPER ABDOMEN: Small hiatal hernia as above. No acute abnormality withinthe visualized abdomen. Scattered colonic diverticuli without acuteinflammation. BONES/SOFT TISSUES: No aggressive appearing osseous lesions. No acute osseous abnormality. Mixed lucent and sclerotic lesion of the [id number] body is unchanged from prior and may [...] Terry Richey M.D. NS: NS Report ID: [id number] Reading Location: [id number] Akash Clements MD IMG CT PROCEDURES Final Result documented in this encounter Visit Diagnoses Diagnosis Pulmonary fibrosis (CMS/HCC) (HCC) Postinflammatory pulmonary fibrosis Dysphagia, unspecified type documented in this encounter Care Teams Steel Placer Relationship Specialty Start Date End Date Vadim Cameron MD PCP - General 05/17/18 09/05/24 documented as of this encounter
--- OUTSIDE RECORDS SUMMARY | 2024-11-09 13:43 | XMS_ITS | Encounter Summary ---
Author Organization [facility] Healthcare Address [address] [place] [address] Care Team Providers Care Plumbing Mechanic Name Role Phone Vadim Cameron MD Primary Care Provider [phone] Reason for Visit * Reason Onset Date Comments Test Results 07/27/2024 Encounter Details Date Type Department Care Team ([facility] st Contact Info) Description 07/27/2024 Telephone [facility] Pulmonary at [address] [place] [address] Mami Kerr LPN Test Results Social History Tobacco Use Types Packs/Day Years Used Date Smoking Tobacco: Never Smokeless Tobacco: Never Alcohol Use Standard Drinks/Week Comments Yes 0 (1 standard drink = 0.6 oz pur e alcohol) occasionally Comments Unknown Sex and Gender Information Value Date Recorded Sex Assigned at Not on file Legal Sex Female 9:29 AM RN RELIEF CHARGE Gender Identity Not on file Sexual Orientation Not on file documented as of this encounter Miscellaneous Notes * Telephone Encounter - Mami Kerr LPN - 07/27/2024 10:54 AM CDT Patient called back and I informed her that Dr. Clements reviewed her PFT.Unfortunately she was unable to perform the maneuvers and the test was unable to be completed. The available data suggests normal lung function but is of course limited. He would like her to get some blood tests done as well as a CT scan to evaluate for possible interstitial lung disease that may be causing her symptoms. Theblood test has been ordered and she may follow-up with Nilda as scheduled. We will call with results once they have returned. Patient was given scheduling's number and will having testing completed before her appointment with Nilda. Patient verbalized good understanding. * Telephone Encounter - Mami Kerr LPN - 07/27/2024 9:51 AM CDT Called and left patient a message asking them to call our office back for test results. * Telephone Encounter - Mami Kerr LPN - 07/27/2024 9:50 AM CDT ----- Message from Akash Clements MD sent at 07/27/2024 8:07 AM CDT ----- Please let the patient know that I reviewed her pulmonary function testing. Unfortunately she was unable to perform the maneuvers and the test was unable to be completed. The available data suggests normal lung function but is of course limited. I would like her to get some blood tests done as wellas a CT scan to evaluate for possible interstitial lung disease that may be causing her symptoms. The blood test has been ordered and she may follow-up with Nilda as scheduled. We will call with results once they have returned Thanks documented in this encounter Plan of Treatment Upcoming Encounters Date Type Department Care Team (Latest Contact Info) Description 11/22/2024 12:00 PM RN RELIEF CHARGE Hospital Encounter [address] [address] Andrew Nava, DO 3 [facility] [address] [address] 11/22/2024 12:00 PM RN RELIEF CHARGE - 11/22/2024 12:30 PM RN RELIEF CHARGE Surgery [address] [address] Andrew Nava, DO [address] [address] ESOPHAGOGASTRODUODENOSCOPY Scheduled Procedures Name Priority Associated Diagnoses Date/Ti id ESOPHAGOGASTRODUODENOSCOPY Dysphagia, unspecified type 11/22/2024 12:00 PM RN RELIEF CHARGE documented as of this encounter Visit Diagnoses Not on filedocumented in this encounter Care Teams Plumbing Mechanic Relationship Specialty Start Date End Date Vadim Cameron MD PCP - General 05/17/18 09/05/24 documented as of this encounter
--- OUTSIDE RECORDS SUMMARY | 2024-11-09 13:43 | XMS_ITS | Encounter Summary ---
Author Organization [facility] Healthcare Address [address] [place] [address] Care Team Providers Care Medical Investigator Name Role Phone Vadim Cameron MD Primary Care Provider [phone] Reason for Visit * Reason Comments Asthma 2 mo f/u Encounter Details Date Type Department Care Team (Late st Contact Info) Description 09/10/2024 11:30 AM SUPERINTENDENT DRIVERS Office Visit [facility] Pulmonary at [address] [place] [address] Nilda Williamson, JUAN [address] [place] [address] [address] [place] [address] Mild intermittent asthma without complication (Primary Dx); Pulmonary fibrosis (CMS/HCC) (HCC) Social History Tobacco Use Types Packs/Day Years Used Date Smoking Tobacco: Never Smokeless Tobacco: Never Alcohol Use Standard Drinks/Week Comments Yes 0 (1 standard drink = 0.6 oz pur e alcohol) occasionally Comments Unknown Sex and Gender Information Value Date Recorded Sex Assigned at Not on file Legal Sex Female 9:29 AM SUPERINTENDENT DRIVERS Gender Identity Not on file Sexual Orientation Not on file documented as of this encounter Last Filed Vital Signs Vital Sign Reading Time Taken Comments Blood Pressure 120/60 09/10/2024 11:18 AM SUPERINTENDENT DRIVERS Pulse 82 09/10/2024 11:18 AM SUPERINTENDENT DRIVERS Temperature 36.7 ??C (98 ??F) 09/10/2024 11:18 AM SUPERINTENDENT DRIVERS Respiratory Rate 16 09/10/2024 11:18 AM SUPERINTENDENT DRIVERS Oxygen Saturation 95% 09/10/2024 11:18 AM SUPERINTENDENT DRIVERS Inhaled Oxygen Concentration - - Weight - - Height - - Body Mass Index - - documented in this encounter Ordered Prescriptions Prescription Sig Dispense Quantity Refills Last Filled Start Date End Date mometasone (ASMANEX) 200 mcg/actuation inhalerIndications :Mild intermittent asthma without complication Inhale 2 puffs 2 (two) times a day Rinse mouth with water after use. Do not swallow. 1 each 3 09/10/2024 09/12/2024 documented in this encounter Progress Notes * Nilda Williamson, DEEP FRYER ASSEMBLER - 09/10/2024 11:30 AM CST Images from the original note were not included. PULMONARY CLINIC NOTE Visit Date: 09/10/2024 Chief Complaint: Presents today for Chronic cough HPI: Caro Sarabia is a 64 y.o. female w/ PMH of adult onset asthma who presents on 09/11/2024 for follow up on chronic cough. She was previously diagnosed with asthma and was treated with Symbicort, initially with good improvement. She was originally evaluated in our office in July of 2024 at which time she reported dyspnea with exertional activity like stairs. She also endorsed a cough that was minimally productive of white sputum and good relief of symptoms from albuterol. Today she continues to report a cough and some dyspnea with activities. She is compliant with her Symbicort and tells me that she feels like she gets good benefit from her albuterol. She endorses dysphagia, and has a family history of esophageal stricture. She denies hemoptysis, unintentional weight loss, fever/chills, night sweats, wheezing. She had difficulty completing her pulmonary testing due to cough. She has not had a respiratory illness this year. Exposure History: None relevant Past Medical History: Past Medical History: Diagnosis Date Asthma Allergy Induced Chronic bronchitis (HCC) Hyperlipidemia Kidney stone Pulmonary fibrosis (CMS/HCC) (HCC) 09/11/2024 Family History: Family History Problem Relation Age of Onset Other (hip replacement) Mother Heart disease Father GI problems Father Breast cancer Sister Cervical cancer Sister Heart disease Brother Other (Open Heart surgery) Brother Unsure of how many vessels Social History: Never a smoker. Review of Systems: Review of Systems Constitutional: Negative for activity change, chills, fatigue and unexpected weight change. HENT: Negative for congestion, postnasal drip, rhinorrhea, sinus pressure, sore throat and voice change. Eyes: Negative for visual disturbance. Respiratory: Negative for cough, chest tightness, shortness of breath and wheezing. Denies hemoptysis Cardiovascular: Negative for chest pain, palpitations and leg swelling. Gastrointestinal: Denies GERD Genitourinary: Negative for difficulty urinating. Musculoskeletal: Negative for arthralgias and joint swelling. Skin: Negative for rash. Neurological: Negative for weakness. Hematological: Negative for adenopathy. Psychiatric/Behavioral: Negative for sleep disturbance. OBJECTIVE: Physical Exam: Vitals: 09/10/24 1118 BP: 120/60 BP Location: Left arm Patient Position: Standing Pulse: 82 Resp: 16 Temp: 36.7 ??C (98 ??F) TempSrc: Temporal SpO2: 95% Physical Exam Constitutional: Appearance: Normal appearance. HENT: Head: Normocephalic. Nose: No congestion or rhinorrhea. Mouth/Throat: Mouth: Mucous membranes are moist. Eyes: Pupils: Pupils are equal, round, and reactive to light. Neck: Comments: No supraclavicular adenopathy Cardiovascular: Rate and Rhythm: Normal rate and regular rhythm. Heart sounds: No murmur heard. Pulmonary: Effort: Pulmonary effort is normal. No tachypnea or respiratory distress. Breath sounds: No decreased air movement. No decreased breath sounds, wheezing, rhonchi or rales. Abdominal: General: Bowel sounds are normal. Palpations: Abdomen is soft. Tenderness: There is no abdominal tenderness. Musculoskeletal: General: No swelling. Right lower leg: No edema. Left lower leg: No edema. Lymphadenopathy: Cervical: No cervical adenopathy. Skin: General: Skin is warm and dry. Nails: There is no clubbing. Neurological: General: No focal deficit present. Mental Status: She is alert and oriented to person, place, and time. Psychiatric: Mood and Affect: Mood normal. Data Review: CT Chest high-resolution 09/08/2023: Personally reviewed Scattered areas of subpleural reticular opacities with a basilar and posterior predominance. There is also some mosaic attenuation CT chest high-resolution without contrast 08/15/2024: Personally reviewed Bibasilar subpleural reticulations and traction bronchiectasis, possible UIP or NSIP No erythrocytosis or peripheral eosinophilia Labs 08/15/2024: VIJAY, rheumatoid factor, Morgan antibodies, Sjogren's anti SSA and anti SSB, Lora 1 antibody, Scl 70, LINE REPAIRER TOWER, and CCP antibodies all negative BOB antibody was positive Labs 08/31/2024: DsDNA, centromere b antibody, and antiribosomal P antibodies were negative MyoMarker 3 panel is pending Pulmonary Functions Testing Results: 09/08/2023: FEV1 1.97 L 92% predicted, FVC 2.51 L 95% predicted, FEV1/FVC 0.78, TLC 3.58 84% predicted, RV 0.8955% predicted, DLCO 14.2 65% predicted. Normal spirometry and lung volumes. Moderate diffusion impairment Methacholine challenge test 07/24/2024: She was unable to complete the test due to coughing ASSESSMENT AND PLAN Diagnoses and all orders for this visit: Mild intermittent asthma without complication (Primary) Assessment & Plan: She was unable to complete methacholine challenge [...] earlier evaluation or change to her plan ofcare Orders: - mometasone (ASMANEX) 200 mcg/actuation inhaler; Inhale 2 puffs 2 (two) times a day Rinse mouth with water after use. Do not swallow. Pulmonary fibrosis (CMS/HCC) (HCC) Assessment & Plan: Further evaluation for early interstitial lung disease has been initiated with autoimmune serologies and high-resolution CT Isolated positive BOB antibody At this time I will plan for surveillance imaging with high resolution CTand serial pulmonary function testing to monitor for evidence of disease progression in six months Nilda Williamson NP RINTENDENT DRIVERS documented in this encounter Miscellaneous Notes * Assessment & Plan Note - Nilda Williamson NP - 09/11/2024 1:04 PM SUPERINTENDENT DRIVERS Associated Problem(s): Pulmonary fibrosis (CMS/HCC) (HCC) Further evaluation for early interstitial lung disease has been initiated with autoimmune serologies and high-resolution CT Isolated positive BOB antibody At this time I will plan for surveillance imaging with high resolution CTand serial pulmonary function testing to monitor for evidence of disease progression in six months RINTENDENT DRIVERS * Assessment & Plan Note - Nilda Williamson NP - 09/11/2024 12:50 PM SUPERINTENDENT DRIVERS Associated Problem(s): Mild intermittent asthma without complication She was unable to complete methacholine challenge [...] earlier evaluation or change to her plan ofcare RINTENDENT DRIVERS documented in this encounter Plan of Treatment Upcoming Encounters Date Type Department Care Team (Latest Contact Info) Description 11/22/2024 12:00 PM SUPERINTENDENT DRIVERS Hospital Encounter [address] [address] Andrew Nava, DO [address] [address] 11/22/2024 12:00 PM SUPERINTENDENT DRIVERS - 11/22/2024 12:30 PM SUPERINTENDENT DRIVERS Surgery [address] [address] Andrew Nava, DO [address] [address] ESOPHAGOGASTRODUODENOSCOPY Scheduled Procedures Name Priority Associated Diagnoses Date/Ti vt ESOPHAGOGASTRODUODENOSCOPY Dysphagia, unspecified type 11/22/2024 12:00 PM SUPERINTENDENT DRIVERS documented as of this encounter Visit Diagnoses Diagnosis Mild intermittent asthma without complication- Primary Pulmonary fibrosis (CMS/HCC) (HCC) Postinflammatory pulmonary fibrosis Dysphagia, unspecified type documented in this encounter Discontinued Medications Medication Sig Discontinue Reason Start Date End Da te SYMBICORT 160-4.5 mcg/actuation inhaler Inhale 2 puffs 2 (two) times a day Alternate therapy 02/06/2018 09/10/2024 documented as of this encounter Historical Medications * This list may reflect changes made after this encounter. estradioL (ESTRACE) 0.01 % (0.1 mg/gram) vaginal cream Insert 2 g into the vagina daily 08/29/2024 added in this encounter Care Teams Medical Investigator Relationship Specialty Start Date End Date Vadim Cameron MD [address] [place] [address] PCP - General Family Medicine 09/06/24 documented as of this encounter
--- OUTSIDE RECORDS SUMMARY | 2024-11-09 13:43 | XMS_ITS | Encounter Summary ---
Author Organization [facility] Healthcare Address [address] [place] [address] Care Team Providers Care Laundry Routeman Name Role Phone Vadim Cameron MD Primary Care Provider [phone] Reason for Referral * Consultation (Routine) - Pending Review Specialty Diagnoses / Procedures Referred By Contac t Referred To Contact Rheumatology Diagnoses Pulmonary fibrosis (CMS/HCC) (HCC) Nilda Williamson NP [address] [place] [address] [address] CO[address] [place] [address] Phone: tel: fax: Rubén Pelletier MD [address] [place] [address] Phone: tel: fax: Referral ID Status Reason Start Date Expiration Date Visits Requested Visits Authorized [id number] Pending Review Specialty Services Required 10/15/2024 11/14/2025 1 1 Question Answer Please select the performing region: [facility] [[id number]] Please select the performing department[facility] [[id number]] To provider: RUBÉN PELLETIER [[id number]] # of visits: 1 Comments ILD with +BOB and Anti-PM/Scl-100 Ab MECHANIC * Consultation (Routine) - Closed Specialty Diagnoses / Procedures Referred By Contac t Referred To Contact Gastroenterology Diagnoses Dysphagia, unspecified type Nilda Williamson NP [address] [place] [address] [address] COLEMAN [address] [place] [address] Phone: tel: fax: [facility] Gastroenterology at [address] [place] [address] Phone: tel: fax: Referral ID Status Reason Start Date Expiration Date V isits Requested Visits Authorized [id number] Closed Specialty Services Required 10/15/2024 11/14/2025 1 1 Question Answer Process Instructions: THE AMBULATORY REFERRAL TO GASTROENTEROLOGY IS NOT AN ORDER FOR A PROCEDURE (I.E. EGD, COLONOSCOPY.) USE THE DIRECT SCHEDULING CASE REQUEST ORDER (GI50) IF THE PATIENT REQUIRES A PROCEDURE TO BE PERFORMED. Please select the performing region: [facility] [[id number]] Please select the performing department: [facility] [place] [place] [facility] [[id number]] # of visits: 1 Comments Dysphagia, family history of esophageal stricture with dilation MECHANIC Reason for Visit * Reason Comments Follow-up Encounter Details Date Type Department Care Team (Late st Contact Info) Description 10/15/2024 11:00 AM KILN MECHANIC Office Visit [facility] Pulmonary at [address] [place] [address] Nilda Williamson NP [address] [place] [address] [address] [place] [address] Pulmonary fibrosis (CMS/HCC) (HCC) (Primary Dx); Mild intermittent asthma without complication; Dysphagia, unspecified type Social History Tobacco Use Types Packs/Day Years Used Date Smoking Tobacco: Never Smokeless Tobacco: Never Tobacco Cessation:Counseling Given: Not Answered Alcohol Use Standard Drinks/Week Comments Yes 0 (1 standard drink = 0.6 oz pur e alcohol) occasionally Comments Unknown Sex and Gender Information Value Date Recorded Sex Assigned at Not on file Legal Sex Female 9:29 AM KILN MECHANIC Gender Identity Not on file Sexual Orientation Not on file documented as of this encounter Last Filed Vital Signs Vital Sign Reading Time Taken Comments Blood Pressure 128/80 10/15/2024 10:54 AM KILN MECHANIC Pulse 78 10/15/2024 10:54 AM KILN MECHANIC Temperature 36.1 ??C (97 ??F) 10/15/2024 10:54 AM KILN MECHANIC Respiratory Rate - - Oxygen Saturation 97% 10/15/2024 10:54 AM KILN MECHANIC Inhaled Oxygen Concentration - - Weight 87.2 kg (192 lb 4.8 oz) 10/15/2024 10:54 AM KILN MECHANIC Height 154.9 cm (5' 1 ) 10/15/2024 10:54 AM KILN MECHANIC Body Mass Index 36.33 10/15/2024 10:54 AM KILN MECHANIC documented in this encounter Progress Notes * Nilda Williamson, FORM LAYER - 10/15/2024 11:00 AM CST Images from the original note were not included. PULMONARY CLINIC NOTE Visit Date: 10/15/2024 Chief Complaint: Presents today for Chronic cough HPI: Caro Sarabia is a 64 y.o. female w/ PMH of adult onset asthma who presents on 10/15/2024 for follow up on chronic cough. She [...] Mother Heart disease Father GI problems Father Other (adult respiratory distress syndrome) Father COPD Father Heart failure Father Febrile seizures Father Other (sepsis) Father Peripheral vascular disease Father Breast cancer Sister Cervical cancer Sister [...] for sleep disturbance. OBJECTIVE: Physical Exam: Vitals: 10/15/24 1054 BP: 128/80 BP Location: Right arm Patient Position: Sitting Pulse: 78 Temp: 36.1 ??C (97 ??F) TempSrc: Temporal SpO2: 97% Weight: 87.2 kg (192 lb 4.8 oz) Height: 154.9 cm (5' 1 ) Physical Exam Constitutional: Appearance: Normal appearance. HENT: [...] anti SSB, Lora 1 antibody, Scl 70, ENGINE REPAIRER, and CCP antibodies all negative BOB antibody was positive Labs 08/31/2024: DsDNA, centromere b antibody, and antiribosomal P antibodies were negative MyoMarker 3 panel resulted negative except elevated Anti-PM/Scl-100 Ab Pulmonary Functions Testing Results: 09/08/2023: FEV1 1.97 L 92% predicted, FVC 2.51 L 95% predicted, FEV1/FVC 0.78, TLC 3.58 84% predicted, RV 0.8955% predicted, DLCO 14.2 65% predicted. Normal spirometry and lung volumes. Moderate diffusion impairment Methacholine challenge test 07/24/2024: She was unable to complete the test due to coughing ASSESSMENT AND PLAN Diagnoses and all orders for this visit: Pulmonary fibrosis (CMS/HCC) (HCC) (Primary) Assessment & Plan: Further evaluation for early [...] progression in six months, due around 02/2025 Mild intermittent asthma without complication Assessment & Plan: She was unable to [...] evaluation or change to her plan ofcare Dysphagia, unspecified type Assessment & Plan: I placed a referral for GI today for further evaluation Orders: - Ambulatory referral to Gastroenterology; Future Nilda Williamson NP MECHANIC documented in this encounter Miscellaneous Notes * Assessment & Plan Note - Nilda Williamson NP - 10/15/2024 1:27 PM KILN MECHANIC Associated Problem(s): Dysphagia I placed a referral for GI today for further evaluation MECHANIC * Assessment & Plan Note - Nilda Williamson NP - 10/15/2024 1:24 PM KILN MECHANIC Associated Problem(s): Mild intermittent asthma without complication [...] evaluation or change to her plan ofcare MECHANIC * Assessment & Plan Note - Nilda Williamson NP - 10/15/2024 1:19 PM KILN MECHANIC Associated Problem(s): Pulmonary fibrosis (CMS/HCC) (HCC) Further [...] progression in six months, due around 02/2025 MECHANIC MECHANIC MECHANIC documented in this encounter Plan of Treatment Upcoming Encounters Date Type Department Care Team (Latest Contact Info) Description 11/22/2024 12:00 PM KILN MECHANIC Hospital Encounter [facility] [address] [place] [address] Andrew Nava, DO [address] [address] 11/22/2024 12:00 PM KILN MECHANIC - 11/22/2024 12:30 PM KILN MECHANIC Surgery [facility] [address] [place] [address] Andrew Nava, DO 3 [facility] [address] [place] [address] ESOPHAGOGASTRODUODENOSCOPY Scheduled Procedures Name Priority Associated Diagnoses Date/Ti vt ESOPHAGOGASTRODUODENOSCOPY Dysphagia, unspecified type 11/22/2024 12:00 PM KILN MECHANIC Scheduled Referrals Name Type Priority Associated Diagnoses Order Schedule Ambulatory referral to Gastroenterology Outpatient Referral Routine Dysphagia, unspecified type Expected: 10/29/2024 (Approximate), Expires: 10/15/2025 Ambulatory referral to Rheumatology Outpatient Referral Routine Pulmonary fibrosis ([facility]/HCC) (HCC) Expected: 10/29/2024 (Approximate), Expires: 10/15/2025 documented as of this encounter Visit Diagnoses Diagnosis Pulmonary fibrosis (CMS/HCC) (HCC)- Primary Postinflammatory pulmonary fibrosis Mild intermittent asthma without complication Dysphagia, unspecified type Dysphagia, unspecified type documented in this encounter Discontinued Medications Medication Sig Discontinue Reason Start Date End Da te HYDROcodone-acetaminophe n (NORCO) 5-325 mg per tabletIndications:Pain Take 2 tablets by mouth every 6 (six) hours as needed for pain. Therapy completed 05/19/2018 10/15/2024 documented as of this encounter Historical Medications * This list may reflect changes made after this encounter. nystatin (Nystop) powder as needed meloxicam (MOBIC) 7.5 mg tablet TAKE 1 TABLET BY MOUTH ONCE DAILY FOR KNEE PAIN 09/25/2024 added in this encounter Care Teams Laundry Routeman Relationship Specialty Start Date End Date Vadim Cameron MD [address] [address] PCP - General Family Medicine 09/06/24 documented as of this encounter
--- OUTSIDE RECORDS SUMMARY | 2024-11-09 13:43 | XMS_ITS | Referral Summary ---
Author Organization [facility] Address [address] [place] [address] Care Team Providers Care Conveyor Installer Name Role Phone Vadim Cameron MD Primary Care Provider [phone] Encounters Date Type Department Care Team Description 10/17/2024 Telephone [facility] Gastroenterology at [address] [place] [phone] Andrew Nava, 10/15/2024 11:00 AM MEAT PASSER Office Visit [facility] Pulmonary at [address] [place] [phone] Nilda Williamson NP Pulmonary fibrosis (CMS/HCC) ([facility]) (Primary Dx); Mild intermittent asthma without complication; Dysphagia, unspecified type 09/10/2024 Telephone [facility] Pulmonary at [address] [place] [phone] Veda Neely LPN PA [employer] 09/10/2024 11:30 AM MEAT PASSER Office Visit [facility] Pulmonary at [address] [place] [phone] Nilda Williamson NP Mild intermittent asthma without complication (Primary Dx); Pulmonary fibrosis (CMS/HCC) (HCC) 08/31/2024 11:50 AM CDT Lab [facility] [address] [place] [address] Pulmonary fibrosis (CMS/HCC) (HCC) 08/30/2024 Orders Only [facility] Pulmonary at [address] [place] [address] Akash Clements MD Pulmonary fibrosis (CMS/HCC) ([facility]) (Primary Dx) 08/15/2024 8:00 AM CDT Lab [address] [address] Pulmonary fibrosis (CMS/HCC) (HCC) 08/15/2024 7:11 AM CDT - 08/15/2024 11:59 PM CDT Hospital Encounter [address] [address] Pulmonary fibrosis ([facility]) ([facility]) Discharge Disposition: Discharge to home or self care 08/14/[address] [address] Vadim Cameron MD from Last 3 Months Allergies No known active allergies Medications PROAIR [...] (10 mg total) by mouth daily Active [id number]-ep a-dpa-fish oil 1,050-1,200 mg capsuleIndicat ions:stop 5 [...] for pain. 40 tablet 8 024 Discontin ued(Rafia morrell completed ) Active Problems Problem Noted Date Diagnosed Date Dysphagia 10/15/2024 Assessment & Plan (10/15/2024 1:27 PM MEAT PASSER): I placed a referral for GI today for further evaluation Mild intermittent asthma without complication Assessment & Plan (10/15/2024 1:24 PM MEAT PASSER): She was unable to complete methacholine challenge [...] care Assessment & Plan (09/11/2024 12:50 PM MEAT PASSER): She was unable to complete methacholine challenge [...] to her plan of care Pulmonary fibrosis ([facility]) 09/11/2024 Assessment & Plan (10/15/2024 1:26 PM MEAT PASSER): Further evaluation for early interstitial lung disease [...] 02/2025 Assessment & Plan (09/11/2024 1:04 PM MEAT PASSER): Further evaluation for early interstitial lung disease has been initiated with autoimmune serologies and high-resolution CT Isolated positive BOB antibody At this time I will plan for surveillance imaging with high resolution CTand serial pulmonary function testing to monitor for evidence of disease progression in six months Social History Tobacco Use Types Packs/Day Years Used Date Smoking Tobacco: Never Smokeless Tobacco: Never Tobacco Cessation:Counseling Given: Not Answered Alcohol Use Standard Drinks/Week Comments Yes 0 (1 standard drink = 0.6 oz pur e alcohol) occasionally Comments Unknown Sex and Gender Information Value Date Recorded Sex Assigned at Not on file Legal Sex Female 9:29 AM MEAT PASSER Gender Identity Not on file Sexual Orientation Not on file Last Filed Vital Signs Vital Sign Reading Time Taken Comments Blood Pressure 128/80 10/15/2024 10:54 AM MEAT PASSER Pulse 78 10/15/2024 10:54 AM MEAT PASSER Temperature 36.1 ??C (97 ??F) 10/15/2024 10:54 AM MEAT PASSER Respiratory Rate 16 09/10/2024 11:18 AM MEAT PASSER Oxygen Saturation 97% 10/15/2024 10:54 AM MEAT PASSER Inhaled Oxygen Concentration - - Weight 87.2 kg (192 lb 4.8 oz) 10/15/2024 10:54 AM MEAT PASSER Height 154.9 cm (5' 1 ) 10/15/2024 10:54 AM MEAT PASSER Body Mass Index 36.33 10/15/2024 10:54 AM MEAT PASSER Plan of Treatment Upcoming Encounters Date Type Department Care Team (Latest Contact Info) Description 11/22/2024 12:00 PM MEAT PASSER Hospital Encounter [address] [address] Andrew Nava, DO 3 [facility] [place] [address] [place] [address] 11/22/2024 12:00 PM MEAT PASSER - 11/22/2024 12:30 PM MEAT PASSER Surgery [address] [address] Andrew Nava, DO 3 [facility] [address] [place] [address] ESOPHAGOGASTRODUODENOSCOPY Scheduled Procedures Name Priority Associated Diagnoses Date/Ti me ESOPHAGOGASTRODUODENOSCOPY Dysphagia, unspecified type 11/22/2024 12:00 PM MEAT PASSER Procedures Procedure Name Priority Date/Time Associated Diagnosis Comments BLOOD MIS TO [place] Routine 08/31/2024 11 :56 AM CDT ANTI-DOUBLE [...] 4 AM CDT Pulmonary fibrosis (CMS/HCC) (HCC) BRAKE MACHINE OPERATOR ANTIBODIES Routine 08/15/2024 7:44 AM [...] Last 3 Months Results * (ABNORMAL) BLOOD MIS TO [place] (08/31/2024 11:56 AM CDT) Test name, chem [id number] MyoMarker 3 Profile [facility] ref Lab Misc See Comment(A) [facility] [...] ?approved by the Food and Drug Administration. ??Bgns-Ie-0-Ab ?Negative ?Negative ?This test was developed and its performance characteristics ?determined by [facility]. It has not been cleared or ?approved by the Food and Drug Administration. ??Iaad-PNE-2cfjga Ab ?<20 ?Units ??<20 ?This test was [...] by the Food and Drug Administration. ??Anti-U1 BRAKE MACHINE OPERATOR Ab ?<20 ?Units ??<20 ?Anti-U2 BRAKE MACHINE OPERATOR Ab ?Negative ?Negative ?This test was developed and its performance characteristics ?determined by [facility]. It has not been cleared or ?approved by the Food and Drug Administration. ??Anti-U3 BRAKE MACHINE OPERATOR (Fibrillarin) ? Negative ?Negative ?This test was developed and its performance characteristics ?determined by [facility]. It has not been cleared or ?approved by the Food and Drug Administration. ?Interpretation for Anti-Lora-1, Zuwz-PXS-2lfchg, ?Anti-MDA-5, Anti-NXP-2, Anti-PM/Scl-100, ?Anti-SS-A 52 kD, Anti-U1 BRAKE MACHINE OPERATOR: ?Negative: ?<20 ?Weak Positive: ? 20 - 39 ?Moderate Positive: ? 40 - 80 ?Strong Positive: ? >80 ?. ?Test Performed by: ?[facility] ?[address] ?[place] [address] Blood 08/31/2024 11:5 6 AM CDT 08/31/2024 1:01 PM CDT us Akash Clements MD LAB BLOOD ORDERABLES Final Resul t [facility] [place]) 1 [facility] [place] [address] [facility] ref [facility] * Anti-double stranded DNA abs (08/31/2024 11:56 AM CDT) dsDNA Ab <1.0 <=4.0 IUnits/mL Comment: Interpretive Data Negative: < or = 4 IUnits/mL Indeterminate: 5 - 9 IUnits/mL Positive: > or = 10 IUnits/mL Current interpretive data was last revised on 2017. Testing performed by: [facility], 1 [facility] [place]., [address] Blood 08/31/2024 11:5 6 AM CDT 08/31/2024 2:08 PM CDT us Akash Clements MD LAB BLOOD ORDERABLES Final Resul t Performing Organization Address City/[facility]/ZIP Co de Phone Number [facility] ([place]) 1 [facility] import2 [place] [address] * Ribosomal P ab (08/31/2024 11:56 AM CDT) Ribosomal ab <0.2 <=0.9 Ab Index Comment: Interpretive Data Negative: < 1.0 Ab Index Positive: > or = 1.0 Ab Index Current interpretive data was last revised on 2017. Testing performed by: [facility], [address] [place] [address]., [id number] Blood 08/31/2024 11:5 6 AM CDT 08/31/2024 2:08 PM CDT Akash Clements MD LAB BLOOD ORDERABLES Final Resul t Performing Organization Address [facility] Co de Phone Number [facility] ([place]) 1 [facility] [place] [address] * Centromere ab IgG (08/31/2024 11:56 AM CDT) Anticentromere <0.2 <=0.9 Ab Index Comment:Testing performed by : [facility], [address] [place] [address]., [id number] Blood 08/31/2024 11:5 6 AM CDT 08/31/2024 2:08 PM CDT Akash Clements MD LAB BLOOD ORDERABLES Final Resul t Performing Organization Address City/[facility] Co de Phone Number [facility] ([place]) 1 [facility] import2 [place] [address] * VIJAY ab ql w/rflx to VIJAY qn (08/15/2024 7:44 AM CDT) VIJAY Negative Comment: Interpretive Data Normal range for VIJAY Qualitative Antibody = Negative. 1. VIJAY is performed using indirect immunofluorescence against HEp-2 cells 2. IVJAY titers are performed on all positive qualitative [...] last revised on 2020. Testing performed by: [facility], [address] [place] [address]., [id number] Blood 08/15/2024 7:44 AM CDT 08/15/2024 12:06 PM CDT Akash Clements MD LAB BLOOD ORDERABLES Final Resul t Performing Organization Address [facility] Co de Phone Number [facility] ([place]) [address] [place] [address] [place] [address] * SCL 70 abs (08/15/2024 7:44 AM CDT) Anti-Scl70, IgG <0.2 <=0.9 Ab Index Comment: Interpretive Data Negative: < 1.0 Ab Index Positive: > or = 1.0 Ab Index Current interpretive data was last revised on 2017. Testing performed by: [facility], [address] [place] [address]., [id number] Blood 08/15/2024 7:44 AM CDT 08/15/2024 12:06 PM CDT Akash Clements MD LAB BLOOD ORDERABLES Final Resul t Performing Organization Address City/[facility] Co de Phone Number [facility] ([place]) [address] [place] [address] [place] [address] * Morgan abs (08/15/2024 7:44 AM CDT) Anti-BOB, SM <0.2 <=0.9 Ab Index Comment: Interpretive Data Negative: < 1.0 Ab Index Positive: > or = 1.0 Ab Index Current interpretive data was last revised on 2017. Testing performed by: [facility], [address] [place] [address]., [id number] Blood 08/15/2024 7:44 AM CDT 08/15/2024 12:06 PM CDT Akash Clements MD LAB BLOOD ORDERABLES Final Resul t Performing Organization Address City/[facility] Co de Phone Number [facility] ([place]) 1 [facility] [place] [address] * BRAKE MACHINE OPERATOR abs (08/15/2024 7:44 AM CDT) BRAKE MACHINE OPERATOR ab <0.2 <=0.9 Ab Index Comment: Interpretive Data Negative: < 1.0 Ab Index Positive: > or = 1.0 Ab Index Current interpretive data was last revised on 2017. Testing performed by: [facility], 1 [place]., [address] Blood 08/15/2024 7:44 AM CDT 08/15/2024 12:06 PM CDT Akash Clements MD LAB BLOOD ORDERABLES Final Resul t Performing Organization Address City/[facility] Co de Phone Number [facility] ([place]) [address] [place] [address] [place] [address] * (ABNORMAL) BOB ab eval w/reflex (08/15/2024 7:44 AM CDT) BOB ab Positive( A) Negative Comment: Interpretive Data Positive Screens will be reflexed to specific testing for Antibodies against the following antigens: Lora-1 Ab, BRAKE MACHINE OPERATOR Ab, Scl-70 Ab, Morgan Ab, SS-A/Ro Ab, and SS- B/La Ab. Further testing for dsDNA, Centromere, or Ribosomal P antibodies is suggested in patient with a positive screen and negative specific antibodies. Current interpretive data was last revised on 2023. Testing performed by: [facility], [address] [place]., [address] Blood 08/15/2024 7:44 AM CDT 08/15/2024 12:05 PM CDT Akash Clements MD LAB BLOOD ORDERABLES Final Resul t Performing Organization Address City/[facility] Co de Phone Number [facility] ([place]) [address] [place] [address] import[address] [place] [address] * Lora-1 antibody (08/15/2024 7:44 AM CDT) Lora 1 Antibody, IgG <0.2 <=0.9 Ab Index Comment: Interpretive Data Negative: < 1.0 Ab Index Positive: > or = 1.0 Ab Index Current interpretive data was last revised on 2017. Testing performed by: [facility], [address] [place] [address]., [id number] Blood 08/15/2024 7:44 AM CDT 08/15/2024 12:06 PM CDT Akash Clements MD LAB BLOOD ORDERABLES Final Resul t Performing Organization Address [facility] Co de Phone Number [facility] ([place]) 1 [facility] [address] [place] [address] * Cyclic citrul peptide antibody, IgG (08/15/2024 7:44 AM CDT) CCP Ab <0.5 <=2.9 units/mL Comment: Interpretive data Negative: <3 units/mL Positive: > or equal to 3 units/mL Current interpretive data was last revised on 2017. Testing performed by: [facility], [address] [place] [address]., [id number] Blood 08/15/2024 7:44 AM CDT 08/15/2024 12:06 PM CDT Akash Clements MD LAB BLOOD ORDERABLES Final Resul t [facility] ([place]) 1 [facility] [place] [address] * Sjogren's syndrome B ab (08/15/2024 7:44 AM CDT) Anti-BOB, SS-B <0.2 <=0.9 Ab Index Comment: Interpretive Data Negative: < 1.0 Ab Index Positive: > or = 1.0 Ab Index Current interpretive data was last revised on 2017. Testing performed by: [facility], [address] [place] [address]., [id number] Blood 08/15/2024 7:44 AM CDT 08/15/2024 12:06 PM CDT Akash Clements MD LAB BLOOD ORDERABLES Final Resul t Performing Organization Address [facility] Co de Phone Number [facility] ([place]) 1 [place] [address] * Sjogren's syndrome A ab (08/15/2024 7:44 AM CDT) Anti-BOB, SS-A <0.2 <=0.9 Ab Index Comment: Interpretive Data Negative: < 1.0 Ab Index Positive: > or = 1.0 Ab Index Current interpretive data was last revised on 2017. Testing performed by: [facility], [address] [place] [address]., [id number] Blood 08/15/2024 7:44 AM CDT 08/15/2024 12:06 PM CDT Akash Clements MD LAB BLOOD ORDERABLES Final Resul t [facility] ([place]) 1 [facility] [place] [address] * Rheumatoid factor (08/15/2024 7:44 AM CDT) Rheumatoid factor, quant <10 <=15 IUnits/mL Comment:Testing performed by : [facility], [address] [place] [address], [place]., [address] Blood 08/15/2024 7:44 AM CDT 08/15/2024 11:15 AM CDT us Akash Clements MD LAB BLOOD ORDERABLES Final Resul t [facility] ([place]) 1 [facility] [place] [address] * CT Chest High Resolution WO Contrast [...] ??Peripheral predominant. Zonal Distribution: ??Lower lung predominant. Outreach Worker Time: ??No significant change/progression over time. Complications: [...] 8:21 AM - Electronically signed by ??Terry Rihcey M.D. NS: NS D: ??08/20/2024 8:21 AM T: ??08/20/2024 8:21 AM Report ID: [id number] Reading Location: ??[id number] Procedure Note Terry Richey MD - 08/20/2024 [...] Peripheral predominant. Zonal Distribution: Lower lung predominant. Outreach Worker Time: No significant change/progression over time. Complications: None. Other: Biapical pleural-parenchymal scarring. UPPER ABDOMEN: Small hiatal hernia as above. No acute abnormality withinthe visualized abdomen. Scattered colonic diverticuli without acuteinflammation. BONES/SOFT TISSUES: No aggressive appearing osseous lesions. No acute osseous abnormality. Mixed lucent and sclerotic lesion of the [id number] body is unchanged from prior and may [...] Terry Richey M.D. NS: NS Report ID: [id number] Reading Location: [id number] Akash Clements MD IMG CT PROCEDURES Final Result from Last 3 Months Insurance [facility] Advance Directives For more information, please contact: [phone] * Full Code (Latest Code Status on File) Date Activated Date Inactivated Comments 05/19/2018 2:04 PM 05/19/2018 5:08 PM Care Teams Conveyor Installer Relationship Specialty Start Date End Date Vadim Cameron MD [address] [place] [address] PCP - General Family Medicine 09/06/24
--- OUTSIDE RECORDS SUMMARY | 2024-11-09 13:43 | XMS_ITS | Encounter Summary ---
Author Organization [facility] Healthcare Address [address] [place] [address] Care Team Providers Care Financial Services Consultant Name Role Phone Vadim Cameron MD Primary Care Provider [phone] Encounter Details Date Type Department Care Team (Late st Contact Info) Description 08/14/2024 Telephone [facility] [address] [place] [phone] Vadim [place] [address] Social History Tobacco Use Types Packs/Day Years Used Date Smoking Tobacco: Never Smokeless Tobacco: Never Alcohol Use Standard Drinks/Week Comments Yes 0 (1 standard drink = 0.6 oz pur e alcohol) occasionally Comments Unknown Sex and Gender Information Value Date Recorded Sex Assigned at Not on file Legal Sex Female 9:29 AM SERVICE LEARNING COORDINATOR Gender Identity Not on file Sexual Orientation Not on file documented as of this encounter Miscellaneous Notes * Telephone Encounter - Henrique Poole - 08/14/2024 1:[address] SCAN APPOINTMENT WITH PATIENT documented in this encounter Plan of Treatment Upcoming Encounters Date Type Department Care Team (Latest Contact Info) Description 11/22/2024 12:00 PM SERVICE LEARNING COORDINATOR Hospital Encounter [facility] Center [address] [place] [phone] Andrew Nava, DO [address] [address] 11/22/2024 12:00 PM SERVICE LEARNING COORDINATOR - 11/22/2024 12:30 PM SERVICE LEARNING COORDINATOR Surgery [facility] [address] [place] [address] Andrew Nava, DO [address] [address] ESOPHAGOGASTRODUODENOSCOPY Scheduled Procedures Name Priority Associated Diagnoses Date/Ti az ESOPHAGOGASTRODUODENOSCOPY Dysphagia, unspecified type 11/22/2024 12:00 PM SERVICE LEARNING COORDINATOR documented as of this encounter Visit Diagnoses Not on filedocumented in this encounter Care Teams Financial Services Consultant Relationship Specialty Start Date End Date Vadim Cameron MD PCP - General 05/17/18 09/05/24 documented as of this encounter
--- OUTSIDE RECORDS SUMMARY | 2024-11-09 13:43 | XMS_ITS | Encounter Summary ---
Author Organization [facility] Healthcare Address [address] [place] [address] Care Team Providers Care Eco Industrial Development Consultant Name Role Phone Vadim Cameron MD Primary Care Provider [phone] Reason for Visit * Diagnostic Lab (Routine) - Canceled Specialty Diagnoses / Procedures Referred By Contac t Referred To Contact Lab Diagnoses Pulmonary fibrosis (CMS/HCC) (HCC) Procedures myomarker 3 panel (myositis panel) - Miscellaneous Test Akash Clements MD [address] [place] [address] Phone: tel: fax: Referral ID Status Reason Start Date Expiration Date V isits Requested Visits Authorized [id number] Canceled 08/30/2024 09/29/2025 1 1 Encounter Details Date Type Department Care Team (Late st Contact Info) Description 08/31/2024 11:50 AM CDT Lab [address] [address] Pulmonary fibrosis (CMS/HCC) (HCC) Social History Tobacco Use Types Packs/Day Years Used Date Smoking Tobacco: Never Smokeless Tobacco: Never Alcohol Use Standard Drinks/Week Comments Yes 0 (1 standard drink = 0.6 oz pur e alcohol) occasionally Comments Unknown Sex and Gender Information Value Date Recorded Sex Assigned at Not on file Legal Sex Female 9:29 AM MERCURY PURIFIER Gender Identity Not on file Sexual Orientation Not on file documented as of this encounter Plan of Treatment Upcoming Encounters Date Type Department Care Team (Latest Contact Info) Description 11/22/2024 12:00 PM MERCURY PURIFIER Hospital Encounter [facility] [address] [place] [address] Andrew Nava, DO 3 [facility] [address] [place] [address] 11/22/2024 12:00 PM MERCURY PURIFIER - 11/22/2024 12:30 PM MERCURY PURIFIER Surgery [facility] [address] [place] [address] Andrew Nava, DO 3 [facility] [address] [place] [address] ESOPHAGOGASTRODUODENOSCOPY Scheduled Procedures Name Priority Associated Diagnoses Date/Ti me ESOPHAGOGASTRODUODENOSCOPY Dysphagia, unspecified type 11/22/2024 12:00 PM MERCURY PURIFIER documented as of this encounter Procedures Procedure Name Priority Date/Time Associated Diagnosis Comments BLOOD MISC TO DECORAH Routine 08/31/2024 11 :56 AM CDT ANTI-DOUBLE STRANDED DNA ANTIBODIES Routine 08/31/2024 11:56 AM CDT Pulmonary fibrosis (CMS/HCC) (HCC) RIBOSOMAL P AB Routine 08/31/2024 11:56 AM CDT Pulmonary fibrosis (CMS/HCC) (HCC) CENTROMERE ANTIBODY, IGG Routine 08/31/2024 11:56 AM CDT Pulmonary fibrosis (CMS/HCC) (HCC) documented in this encounter Results * (ABNORMAL) BLOOD MISC TO DECORAH (08/31/2024 11:56 AM CDT) Test name, chem [id number] MyoMarker 3 Profile [place] ref Lab Misc See Comment(A) [facility] ([place]) Comment: Test ?Result ? Flag ??Unit ?? [...] ?approved by the Food and Drug Administration. ??Sprh-Fr-8-Ab ?Negative ?Negative ?This test was developed and its performance characteristics ?determined by [facility]. It has not been cleared or ?approved by the Food and Drug Administration. ??Zphs-ZZR-4fhwme Ab ?<20 ?Units ??<20 ?This test was [...] by the Food and Drug Administration. ??Anti-U1 SAFETY AND SECURITY OFFICER Ab ?<20 ?Units ??<20 ?Anti-U2 SAFETY AND SECURITY OFFICER Ab ?Negative ?Negative ?This test was developed and its performance characteristics ?determined by [facility]. It has not been cleared or ?approved by the Food and Drug Administration. ??Anti-U3 SAFETY AND SECURITY OFFICER (Fibrillarin) ? Negative ?Negative ?This test was developed and its performance characteristics ?determined by [facility]. It has not been cleared or ?approved by the Food and Drug Administration. ?Interpretation for Anti-Lora-1, Qaxm-NDM-2blqqf, ?Anti-MDA-5, Anti-NXP-2, Anti-PM/Scl-100, ?Anti-SS-A 52 kD, Anti-U1 SAFETY AND SECURITY OFFICER: ?Negative: ?<20 ?Weak Positive: ? 20 - 39 ?Moderate Positive: ? 40 - 80 ?Strong Positive: ? >80 ?. ?Test Performed by: ?[facility] ?[address] ?[place] [address] Blood 08/31/2024 11:5 6 AM CDT 08/31/2024 1:01 PM CDT us Akash Clements MD LAB BLOOD ORDERABLES Final Resul t Performing Organization Address City/[facility]/ZIP Co de Phone Number [facility] ([place]) [address] [place] [address] [place] [address] [place] ref Lab * Anti-double stranded DNA abs (08/31/2024 11:56 AM CDT) [facility] dsDNA Ab <1.0 <=4.0 IUnits/mL Comment: Interpretive Data Negative: < or = 4 IUnits/mL Indeterminate: 5 - 9 IUnits/mL Positive: > or = 10 IUnits/mL Current interpretive data was last revised on 2017. Testing performed by: [facility], [address] [facility] [place]., [address] Blood 08/31/2024 11:5 6 AM CDT 08/31/2024 2:08 PM CDT Akash Clements MD LAB BLOOD ORDERABLES Final Resul t [facility] ([place]) 1 [facility] [place] [address] * Centromere ab IgG (08/31/2024 11:56 AM CDT) Anticentromere <0.2 <=0.9 Ab Index Comment:Testing performed by : [facility], [address] [place]., [address] Blood 08/31/2024 11:5 6 AM CDT 08/31/2024 2:08 PM CDT Akash Clements MD LAB BLOOD ORDERABLES Final Resul t Performing Organization Address City/[facility] Co de Phone Number [facility] ([place]) 1 [facility] [employer] [place] [address] * Ribosomal P ab (08/31/2024 11:56 AM CDT) Ribosomal ab <0.2 <=0.9 Ab Index Comment: Interpretive Data Negative: < 1.0 Ab Index Positive: > or = 1.0 Ab Index Current interpretive data was last revised on 2017. Testing performed by: [facility], [address] [place]., [address] Blood 08/31/2024 11:5 6 AM CDT 08/31/2024 2:08 PM CDT Akash Clements MD LAB BLOOD ORDERABLES Final Resul t Performing Organization Address City/[facility] Co de Phone Number [facility] ([place]) [address] [place] [address] documented in this encounter Visit Diagnoses Diagnosis Pulmonary fibrosis (CMS/HCC) (HCC) Postinflammatory pulmonary fibrosis Dysphagia, unspecified type documented in this encounter Care Teams Eco Industrial Development Consultant Relationship Specialty Start Date End Date Vadim Cameron MD PCP - General 05/17/18 09/05/24 documented as of this encounter
--- OUTSIDE RECORDS SUMMARY | 2024-11-09 13:43 | XMS_ITS | Continuity of Care Document ---
Author Organization [facility] Address [address] [place] [address] [address] [place] [address] Phone Care Team Providers Care Air Conditioner Installer Helper Name Role Phone Valentin OD, Andrew Unavailable Unavailable Advance Directives Directive Yes / No Effective Date File Name No Information Encounters Encounter Description Practice Location Reason(s) For Visit Diagnoses Date Provider Providers Copied on Encounter [facility], [address] [place] [address] [address], [place], [place], [id number], [place] tel:[phone] SEC [facility] No Information 0 1-200 4 Valentin OD Andrew. [address] , [address], [place], [address], [place]. tel:[phone] Family History Family Member Type Diagnosis Age At Onset No Information Payers Payer name Insurance type Covered republican ID Authoriza tion(s) No Information Social History Type Description Quantity Date Captured Comments Sex Female Smoking Status No Information Chief Complaint And Reason For Visit No Information Reason For Referral Reason For Referral No Information History Of Present Illness Encounter Date Complaint History Of Prese nt Illness No Information Functional Status Date Functional Assessmen t No Information Instructions Date Instruction Additional Infor mation No Information Assessments Type Assessment Date No Information Patient Care Teams Name Effective Dates (start - stop) Status Members No Information
--- OUTSIDE RECORDS SUMMARY | 2024-11-09 13:44 | XMS_ITS | Encounter Summary ---
Author Organization [facility] Healthcare Address [address] [place] [address] Care Team Providers Care Contract Assistant Name Role Phone Vadim Cameron MD Primary Care Provider [phone] Reason for Visit * Diagnostic Imaging (Routine) - Pending Review Specialty Diagnoses / Procedures Referred By Contac t Referred To Contact Procedures Breast Imaging Screening Outside Reference Miscellaneous, Not In File Referral ID Status Reason Start Date Expiration Date V isits Requested Visits Authorized [id number] Pending Review 05/04/2024 06/03/2025 1 1 Encounter Details Date Type Department Care Team (Late st Contact Info) Description 11/22/2022 7:50 AM ROOMING HOUSE KEEPER Ancillary Procedure [facility] Outside Films Social History Tobacco Use Types Packs/Day Years Used Date Smoking Tobacco: Never Smokeless Tobacco: Never Alcohol Use Standard Drinks/Week Comments Yes 0 (1 standard drink = 0.6 oz pur e alcohol) occasionally Comments Unknown Sex and Gender Information Value Date Recorded Sex Assigned at Not on file Legal Sex Female 9:29 AM ROOMING HOUSE KEEPER Gender Identity Not on file Sexual Orientation Not on file documented as of this encounter Plan of Treatment Upcoming Encounters Date Type Department Care Team (Latest Contact Info) Description 11/22/2024 12:00 PM ROOMING HOUSE KEEPER Hospital Encounter [address] [address] Andrew Naav, DO [address] [address] 11/22/2024 12:00 PM ROOMING HOUSE KEEPER - 11/22/2024 12:30 PM ROOMING HOUSE KEEPER Surgery [address] [place] [address] Andrew Nava, DO [address] [address] ESOPHAGOGASTRODUODENOSCOPY Scheduled Procedures Name Priority Associated Diagnoses Date/Ti me ESOPHAGOGASTRODUODENOSCOPY Dysphagia, unspecified type 11/22/2024 12:00 PM ROOMING HOUSE KEEPER documented as of this encounter Procedures Procedure Name Priority Date/Time Associated Diagnosis Comments BREAST IMAGING MG SCREENING OUTSIDE REFERENCE Routine 11/22/2022 7:50 AM ROOMING HOUSE KEEPER documented in this encounter Results * Breast Imaging Screening Outside Reference (11/22/2022 7:50 AM ROOMING HOUSE KEEPER) Narrative [facility] - 05/04/2024 11:45 AM CDT This order has been auto-finalized and does not contain a result. us Not In File Miscellaneous IMG MAMMO PROCEDURES F inal Result [facility] documented in this encounter Visit Diagnoses Not on filedocumented in this encounter Care Teams Contract Assistant Relationship Specialty Start Date End Date Vadim Cameron MD PCP - General 05/17/18 09/05/24 documented as of this encounter
--- OUTSIDE RECORDS SUMMARY | 2024-11-09 13:44 | XMS_ITS | Encounter Summary ---
Author Organization [facility] Address [address] [place] [address] Care Team Providers Care Security Architect Name Role Phone Vadim Cameron MD Primary Care Provider [phone] Reason for Referral * Procedure (Routine) - Closed Specialty Diagnoses / Procedures Referred By Latoya casas Referred To Contact Diagnoses Moderate persistent asthma without complication Procedures Pulmonary Function Test -[facility]; Methacholine Challenge Akash Clements MD [address] [place] [address] [address] [place] [address] [place] [address] Phone: tel: fax: Referral ID Status Reason Start Date Expiration Date Visits Re quested Visits Authorized [id number] Closed 07/11/2024 08/10/2025 1 1 Reason for Visit * Procedure (Routine) - Closed Specialty Diagnoses / Procedures Referred By Latoya casas Referred To Contact Diagnoses Moderate persistent asthma without complication Procedures Pulmonary Function Test -[facility]; Methacholine Challenge Akash Clements MD [address] [place] [address] [address] [place] [address] Phone: tel: fax: Referral ID Status Reason Start Date Expiration Date Visits Re quested Visits Authorized [id number] Closed 07/11/2024 08/10/2025 1 1 Encounter Details Date Type Department Care Team (Latest Contact Info) Description 07/24/2024 9:56 AM CDT - 07/24/2024 11:59 PM CDT Hospital Encounter [facility] Respiratory [address] [place] [address] Moderate persistent asthma without complication Discharge Disposition: Discharge to home or self care Social History Tobacco Use Types Packs/Day Years Used Date Smoking Tobacco: Never Smokeless Tobacco: Never Alcohol Use Standard Drinks/Week Comments Yes 0 (1 standard drink = 0.6 oz pur e alcohol) occasionally Comments Unknown Sex and Gender Information Value Date Recorded Sex Assigned at Not on file 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 naproxen sodium 220 mg capsuleIndicatio ns:stop 5 days before surgery Take 220 mg by mouth 2 (two) times a day as needed. gpvwy-3-pxn-epa- dpa-fish oil 1,050-1,200 mg capsuleIndicatio ns:stop 5 [...] (Latest Contact Info) Description 11/22/2024 12:00 PM CLAY HOUSE WORKER Hospital Encounter [address] [address] Andrew Nava, DO [address] [address] 11/22/2024 12:00 PM CLAY HOUSE WORKER - 11/22/2024 12:30 PM CLAY HOUSE WORKER Surgery [address] [address] Andrew Nava, DO [address] [address] ESOPHAGOGASTRODUODENOSCOPY Scheduled Procedures Name Priority Associated Diagnoses Date/Ti me ESOPHAGOGASTRODUODENOSCOPY Dysphagia, unspecified type 11/22/2024 12:00 PM CLAY HOUSE WORKER documented as of this encounter Procedures Procedure Name Priority Date/Time Associated Diagnosis Comments PULMONARY FUNCTION TEST (PFT) Routine 07/24/2024 10:55 AM CDT Moderate persistent asthma without complication documented in this encounter Results * Pulmonary Function Test - (07/24/2024 10:55 AM CDT) Anatomical Region Laterality Modality PFT 07/24/2024 9:5 8 AM CDT Impressions 07/27/2024 8:10 AM CDT Please see the technologist comments for further details, but this is a technique limited study as the patient was unable to perform the maneuvers to ATS standards. ??Please correlate clinically. ??Also the reported predicted values are based on an incorrectly entered height. ??I have interpreted the study based on the patient's actual height of 62 in. The available data can be interpreted as follows: 1. ??Normal spirometry 2. ??Methacholine challenge test was unable to be performed Electronically signed by Akash Clements MD Pulmonary & Critical Care Narrative 07/27/2024 8:10 AM CDT PULMONARY FUNCTION TESTS Caro Sarabia 63 y.o. 07/27/2024 INTERPRETATION Please see technologist's comments mentioned in attached results report. SPIROMETRY: ??Pre bronchodilator FEV1 is 96 % predicted, FVC is 94 % predicted, FEV1/FVC is 0.81 Bronchodilator response: ??Not performed Inspection of the patient's flow-volume loops shows: ??Normal configuration of the inspiratory and expiratory limbs. Akash Clements MD PFT ORDERABLES Final Result documented in this encounter Visit Diagnoses Diagnosis Moderate persistent asthma without complication Dysphagia, unspecified type documented in this encounter Orders Medications Ordered That Grant ht Not Have Been Administered Count Last Ordered Date First Ordered Date methacholine 0.0625 mg/mL (P ROVOCHOLINE) nebulizer solution 0.1875 mg 3 mL 1 07/24/2024 methacholine 0.25 mg/ml (PRO VOCHOLINE) nebulizer solution 0.75 mg 3 mL 1 07/24/2024 methacholine 1 mg/ml (PROVOC HOLINE) nebulizer solution 3 mg 3 mL 1 07/24/2024 methacholine 16 mg/ml (PROVO CHOLINE) nebulizer solution 48 mg 3 mL 1 07/24/2024 methacholine 4 mg/ml (PROVOC HOLINE) nebulizer solution 12 mg 3 mL 1 07/24/2024 documented in this encounter Care Teams Security Architect Relationship Specialty Start Date End Date Vadim Cameron MD PCP - General 05/17/18 09/05/24 documented as of this encounter
--- OUTSIDE RECORDS SUMMARY | 2024-11-09 13:44 | XMS_ITS | Encounter Summary ---
Author Organization [facility] Healthcare Address [address] [place] [address] Care Team Providers Care Ion Implant Machine Operator Name Role Phone Unavailable Primary Care Provider Unavailabl e Encounter Details Date Type Department Care Team (Late st Contact Info) Description 11/27/2006 7:20 PM TERMITE CONTROL SERVICE REPRESENTATIVE - 11/27/2006 8:06 PM TERMITE CONTROL SERVICE REPRESENTATIVE Hospital Encounter [facility] Ysabel Bloom George J., MD [address] [place] [address] Social History Tobacco Use Types Packs/Day Years Used Date Smoking Tobacco: Never Assessed Comments Unknown Sex and Gender Information Value Date Recorded Sex Assigned at Not on file Legal Sex Female 9:29 AM TERMITE CONTROL SERVICE REPRESENTATIVE Gender Identity Not on file Sexual Orientation Not on file documented as of this encounter Plan of Treatment Upcoming Encounters Date Type Department Care Team (Latest Contact Info) Description 11/22/2024 12:00 PM TERMITE CONTROL SERVICE REPRESENTATIVE Hospital Encounter [address] [address] Andrew Nava, DO 3 [facility] [address] [place] [address] 11/22/2024 12:00 PM TERMITE CONTROL SERVICE REPRESENTATIVE - 11/22/2024 12:30 PM TERMITE CONTROL SERVICE REPRESENTATIVE Surgery [address] [address] Andrew Nava, DO 3 [facility] [address] [place] [address] ESOPHAGOGASTRODUODENOSCOPY Scheduled Procedures Name Priority Associated Diagnoses Date/Ti nj ESOPHAGOGASTRODUODENOSCOPY Dysphagia, unspecified type 11/22/2024 12:00 PM TERMITE CONTROL SERVICE REPRESENTATIVE documented as of this encounter Visit Diagnoses Not on filedocumented in this encounter
--- OUTSIDE RECORDS SUMMARY | 2024-11-09 13:44 | XMS_ITS | Encounter Summary ---
Author Organization [facility] Healthcare Address [address] [place] [address] Care Team Providers Care Instructional Design Manager Name Role Phone Unavailable Primary Care Provider Unavailabl e Encounter Details Date Type Department Care Team (Late st Contact Info) Description 06/21/2007 10:30 PM CDT - 06/22/2007 1:00 AM CDT Hospital Encounter [facility] Negrito Meyer MD [address] [place] [address] Juliano Spring MD [address] [place] [address] Social History Tobacco Use Types Packs/Day Years Used Date Smoking Tobacco: Never Assessed Comments Unknown Sex and Gender Information Value Date Recorded Sex Assigned at Not on file Legal Sex Female 9:29 AM 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 Gender Identity Not on file Sexual Orientation Not on file documented as of this encounter Plan of Treatment Upcoming Encounters Date Type Department Care Team (Latest Contact Info) Description 11/22/2024 12:00 PM CONTINUOUS 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 Hospital Encounter [address] [address] Andrew Nava, DO [address] [address] 11/22/2024 12:00 PM CONTINUOUS 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 - 11/22/2024 12:30 PM CONTINUOUS 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 Surgery [address] [address] Andrew Nava, DO [address] [address] ESOPHAGOGASTRODUODENOSCOPY Scheduled Procedures Name Priority Associated Diagnoses Date/Ti ms ESOPHAGOGASTRODUODENOSCOPY Dysphagia, unspecified type 11/22/2024 12:00 PM CONTINUOUS 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 documented as of this encounter Visit Diagnoses Not on filedocumented in this encounter
--- OUTSIDE RECORDS SUMMARY | 2024-11-09 13:44 | XMS_ITS | Encounter Summary ---
Author Organization [facility] Address [address] [place] [address] Care Team Providers Care Process Development Manager Name Role Phone Vadim Cameron MD Primary Care Provider [phone] Reason for Referral * MRI/CAT/PET Scan (Routine) - Closed Specialty Diagnoses / Procedures Referred By Contac t Referred To Contact Radiology Diagnoses Pulmonary fibrosis (CMS/HCC) (HCC) Procedures CT Chest High Resolution WO Contrast Akash Clements MD [address] [place] [address] [address] COLE[address] [place] [id number] Phone: tel: fax: [address] [phone] Referral ID Status Reason Start Date Expiration Date Visits Re quested Visits Authorized [id number] Closed 07/30/2024 07/30/2025 1 1 Encounter Details Date Type Department Care Team (Late st Contact Info) Description 07/27/2024 Orders Only [facility] Pulmonary at [address] [place] [phone] Akash Clements MD [address] [place] [address] [address] COLE[address] [place] [phone] Pulmonary fibrosis (CMS/HCC) (HCC) (Primary Dx) Social History Tobacco Use Types Packs/Day Years Used Date Smoking Tobacco: Never Smokeless Tobacco: Never Alcohol Use Standard Drinks/Week Comments Yes 0 (1 standard drink = 0.6 oz pur e alcohol) occasionally Comments Unknown Sex and Gender Information Value Date Recorded Sex Assigned at Not on file Legal Sex Female 9:29 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 Gender Identity Not on file Sexual Orientation Not on file documented as of this encounter Plan of Treatment Upcoming Encounters Date Type Department Care Team (Latest Contact Info) Description 11/22/2024 12:00 PM MOPHEAD TRIMMER AND WRAPPER Hospital Encounter [address] [address] Andrew Nava, DO 3 [facility] [address] [place] [address] 11/22/2024 12:00 PM MOPHEAD TRIMMER AND WRAPPER - 11/22/2024 12:30 PM MOPHEAD TRIMMER AND WRAPPER Surgery [address] [address] Andrew Nava, DO 3 [facility] [address] [place] [address] ESOPHAGOGASTRODUODENOSCOPY Scheduled Procedures Name Priority Associated Diagnoses Date/Ti me ESOPHAGOGASTRODUODENOSCOPY Dysphagia, unspecified type 11/22/2024 12:00 PM MOPHEAD TRIMMER AND WRAPPER documented as of this encounter Results * Rheumatoid factor (08/15/2024 7:44 AM CDT) Pathologist [facility] Rheumatoid factor, quant <10 <=15 IUnits/mL Comment:Testing performed by : [facility], [address] [place] [address], [id number] Blood 08/15/2024 7:44 AM CDT 08/15/2024 11:15 AM CDT us Akash Clements MD LAB BLOOD ORDERABLES Final Resul t [facility] ([place]) 1 [facility] Department [place] [address] * Cyclic citrul peptide antibody, IgG (08/15/2024 7:44 AM CDT) Pathologist [facility] CCP Ab <0.5 <=2.9 units/mL Comment: Interpretive data Negative: <3 units/mL Positive: > or equal to 3 units/mL Current interpretive data was last revised on 2017. Testing performed by: [facility], [address] [place]., [address] Blood 08/15/2024 7:44 AM CDT 08/15/2024 12:06 PM CDT Akash Clements MD LAB BLOOD ORDERABLES Final Resul t Performing Organization Address City/[facility] Co de Phone Number [facility] ([place]) 1 [facility] [employer] [place] [address] * (ABNORMAL) BOB ab eval w/reflex (08/15/2024 7:44 AM CDT) BOB ab Positive( A) Negative Comment: Interpretive Data Positive Screens will be reflexed to specific testing for Antibodies against the following antigens: Lora-1 Ab, JUNIOR HIGH SCHOOL PRINCIPAL Ab, Scl-70 Ab, Morgan Ab, SS-A/Ro Ab, and SS- B/La Ab. Further testing for dsDNA, Centromere, or Ribosomal P antibodies is suggested in patient with a positive screen and negative specific antibodies. Current interpretive data was last revised on 2023. Testing performed by: [facility], [address] [place]., [address] Blood 08/15/2024 7:44 AM CDT 08/15/2024 12:05 PM CDT Akash Clements MD LAB BLOOD ORDERABLES Final Resul t Performing Organization Address [facility] Co de Phone Number [facility] ([place]) 1 [facility] [employer] [place] [address] * VIJAY ab ql w/rflx to VIJAY [...] last revised on 2020. Testing performed by: [facility], [address] [place]., [address] Blood 08/15/2024 7:44 AM CDT 08/15/2024 12:06 PM CDT us Akash Clements MD LAB BLOOD ORDERABLES Final Resul t [facility] ([place]) 1 [facility] Department [place] [address] * CT Chest High Resolution WO Contrast [...] ??Peripheral predominant. Zonal Distribution: ??Lower lung predominant. Tire Duster Time: ??No significant change/progression over time. Complications: [...] AM T: ??08/20/2024 8:21 AM Report ID: [id number] Reading Location: ??[id number] Procedure Note Terry Richey MD - 08/20/2024 [...] Peripheral predominant. Zonal Distribution: Lower lung predominant. Tire Duster Time: No significant change/progression over time. Complications: None. Other: Biapical pleural-parenchymal scarring. UPPER ABDOMEN: Small hiatal hernia as above. No acute abnormality withinthe visualized abdomen. Scattered colonic diverticuli without acuteinflammation. BONES/SOFT TISSUES: No aggressive appearing osseous lesions. No acute osseous abnormality. Mixed lucent and sclerotic lesion of the [id number] body is unchanged from prior and may [...] Terry Richey M.D. NS: NS Report ID: [id number] Reading Location: [place] [address] Akash Clements MD IM CT PROCEDURES Final Result documented in this encounter Visit Diagnoses Diagnosis Pulmonary fibrosis (CMS/HCC) (HCC)- Primary Postinflammatory pulmonary fibrosis Pulmonary fibrosis (CMS/HCC) (HCC) Postinflammatory pulmonary fibrosis Dysphagia, unspecified type documented in this encounter Care Teams Process Development Manager Relationship Specialty Start Date End Date Vadim Cameron MD PCP - General 05/17/18 09/05/24 documented as of this encounter
--- OUTSIDE RECORDS SUMMARY | 2024-11-09 13:44 | XMS_ITS | Encounter Summary ---
Author Organization [facility] Healthcare Address [address] [place] [address] Care Team Providers Care Seismographer Name Role Phone Vadim Cameron MD Primary Care Provider [phone] Encounter Details Date Type Department Care Team (Late st Contact Info) Description 05/19/2018 12:13 PM CDT Anesthesia Event [facility] Operating Room [address] [place] [address] [place] [address] [facility] [address] [place] [address] May Retana, CARDIOLOGY COORDINATOR 1 [facility] [place] [address] Anesthesia Record Procedure Summary Procedure Name Responsible Anesthesiologist Anesthesia Start Time Anesthesia Stop Time HAMMERTOE REPAIR BILATERAL FIFTH TOE (Bilateral: Toes) Marielle Montes MD 05/19/18 1213 05/19/18 1307 Events Date Time Event Comment 05/19/2018 1138 1213 An Start 1213 An Start Data 1213 In Room 1214 Start Supplemental O2 1217 An Induction The patient was reevaluated immediately before moderate or deep sedation use and before anesthesia induction. 1221 Anesthesia Ready 1226 Proc Start 1236 an dominic now Tourniquet up r ight leg 1237 Incision Start 1253 an dominic now Tourniquet down 1256 Proc Fin 1300 an stop data 1300 Out of Room 1307 Handoff to RN I completed my handoff to the receiving nurse during which we: 1. Patient identified 2. Responsible provider identified 3. Pertinent medical history reviewed 4. Procedure type and surgical course discussed 5. Intraoperative anesthetic management and any significant issues discussed 6. Expectations and concerns for postop period discussed 7. Questions solicited from receiving nurse 8. Patient disposition at the time of handoff: No value filed. 1307 An Stop Meds Name Total propofol 385 mg lidocaine 50 mg midazolam 2 mg fentaNYL 100 mcg ceFAZolin 2,000 mg phenylephrine 150 mcg ondansetron 4 mg dexamethasone 8 mg Lactated Ringer's (LR) infusion 1,000 mL * Agents Name O2 * Blood No blood administrations on file. Lines, Drains, and Airways Type Details Placement Removal Peripheral IV Placement Date: 05/19/18; Placement Time: 1105; Catheter Size: 20 G; Orientation: Right; Location: Wrist; Site Prep: Chlorhexidine; Technique: Anatomical landmarks; Insertion Attempts: 2; Patient Tolerance: Tolerated well; Removal Date: 05/19/18; Removal Time: 1450 05/19/18 1105 by Janell Goodman RN 05/19/18 1450 by Janell Goodman RN RETIRED Surgical Site 05/19/18; 1251; Bilateral; Foot; 10/09/24 (Retired LDA, Removed/Completed by [employer] with LDA Utility); 1213 (Retired LDA, Removed/Completed by [employer] 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 Gender Identity Not on file Sexual Orientation Not on file documented as of this encounter OR Notes * Anesthesia Postprocedure Evaluation - May Retana CRNA - 05/19/2018 1:07 PM CDT Patient: Caro Sarabia Procedure Summary Date: 05/19/18 Room / Location: [facility] OR [address] [place] [address] OPERATING ROOM Anesthesia Start: 1213 Anesthesia Stop: Procedure: HAMMERTOE REPAIR BILATERAL FIFTH TOE (Bilateral Toes) Diagnosis: (hammer toe bilateral) Provider: Seth Mackenzie DPM Responsible Provider: Marielle Montes MD Anesthesia Type: MAC ASA Status: 3 Anesthesia Type: MAC Last vitals BP Temp (!) 35.8 ??C (96.5 ??F) (05/19/18 1302) Pulse Resp SpO2 Anesthesia Post Evaluation Patient location during evaluation: PACU Patient participation: complete - patient participated Level of consciousness: fully awake Pain score: 0 Pain management: adequate Airway patency: adequate Evidence of recall: no Anesthetic complications: no Cardiovascular status: acceptable Respiratory status: acceptable Hydration status: acceptable Pt is: normothermic Nausea/Vomiting status: none * Anesthesia Preprocedure Evaluation - Marielle Montes MD - 05/19/2018 11:30 AM CDT Anesthesia Evaluation Caro Sarabia is a 57 y.o. female Procedure(s): HAMMERTOE REPAIR BILATERAL FIFTH TOE HISTORY Past Medical History Cardiovascular + Hyperlipidemia Respiratory + COPD - chronic bronchitis. + Asthma Endocrine / Other + Obesity (BMI >30) There is no problem list on file for this patient. Past Medical History: Diagnosis Date ??? Asthma Allergy Induced ??? Chronic bronchitis (CMS/HCC) ??? Hyperlipidemia ??? Kidney stone Past Surgical History: Procedure Laterality Date ??? CYSTECTOMY Sacral ??? HIATAL HERNIA REPAIR ??? TUBAL LIGATION OB History No data available No Known Allergies HOME MEDICATIONS : atorvastatin (LIPITOR) 10 mg tablet azelastine (ASTELIN) 137 mcg (0.1 %) nasal spray B.breve-L.acid-L.rham-S.thermo 3 billion cell tablet,chewable cetirizine (ZyrTEC) 10 mg tablet garlic 1,000 mg capsule awovvwsq-lujt-ths-folic acid 3,500-18-0.4 unit-mg-mg tablet,chewable naproxen sodium 220 mg capsule ixsqp-2-bjf-ont-vua-dwww oil 1,050-1,200 mg capsule PROAIR HFA 90 mcg/actuation inhaler SYMBICORT 160-4.5 mcg/actuation inhaler Current Facility-Administered Medications: ??? ceFAZolin (ANCEF) 1000 mg in 10 mL sterile water (premix), 2,000 mg, intravenous, Once ??? Lactated Ringer's (LR) infusion, 30 mL/hr, intravenous, Continuous, Last Rate: 30 mL/hr at 05/19/18 1107, 30 mL/hr at 05/19/18 1107 ??? sodium chloride 0.9% flush 0.5-20 mL, 0.5-20 mL, intra-catheter, PRN Social History Smoking Status ??? Never Smoker Smokeless Tobacco ??? Never Used Alcohol Use ??? Yes Comment: occasionally Drug Use No History reviewed. No pertinent family history. PAT Physical Exam Vitals: 05/19/18 1040 BP: 135/75 Pulse: 64 Resp: 16 Temp: 36.5 ??C (97.7 ??F) SpO2: 99% PT: No results found for requested labs within last 720 hours. INR: No results found for requested labs within last 720 hours. APTT: No results found for requested labs within last 720 hours. Hgb A1C: No results found for requested labs within last 720 hours. CBC RBC: No results found for requested labs within last 720 hours. RDW: No results found for requested labs within last 720 hours. MCHC: No results found for requested labs within last 720 hours. MCH: No results found for requested labs within last 720 hours. MCV: No results found for requested labs within last 720 hours. Hct: No results found for requested labs within last 720 hours. Hgb: No results found for requested labs within last 720 hours. WBC: No results found for requested labs within last 720 hours. MPV: No results found for requested labs within last 720 hours. Platelets: No results found for requested labs within last 720 hours. RDW CV: No results found for requested labs within last 720 hours. RDW Sd: No results found for requested labs within last 720 hours. BMP Glucose: No results found for requested labs within last 720 hours. Calcium: No results found for requested labs within last 720 hours. Sodium: No results found for requested labs within last 720 hours. Potassium: No results found for requested labs within last 720 hours. CO2: No results found for requested labs within last 720 hours. Chloride: No results found for requested labs within last 720 hours. BUN: No results found for requested labs within last 720 hours. Creatinine: No results found for requested labs within last 720 hours. STOP-Bang Total Score: 2 DOS Physical Exam Medical history, medications, and allergies reviewed. Attestation: This PAT evaluation 05/19/2018. Airway Exam: Mallampati: II Cervical ROM: FROM TM distance: >4 Jaw ROM: full Cardiovascular Exam: Rate: regular Rhythm: regular Pulmonary Exam: LCTA, bilat Current state: Patient's current state is cooperative. Anesthesia Plan ASA 3 My patient is approved for the Anesthesia Controlled Medication protocol when under care of a CARDIOLOGY COORDINATOR Planned anesthesia: MAC Induction: Induction: intravenous. Postoperative Plan: Postoperative administration opioids intended. No postoperative mechanical ventilation intended. Informed Consent: Discussed plan with attending. Anesthesia plan and risks discussed with patient. Consent and Attending signature: I and/or my designee have discussed the anesthesia plan, benefits, possible alternatives, parental presence at time of induction (if indicated), and clinically relevant risks that may include dental injury, unintentional awareness, and/or other complications. The patient and/or parent/legal guardian understand, and agree to proceed. All questions answered. 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 - 11/22/2024 12:30 PM [employer] SCI[employer] TEACHER Surgery [address] [address] Dominic Nava, DO [address] [address] ESOPHAGOGASTRODUODENOSCOPY Scheduled Procedures Name Priority Associated Diagnoses Date/Ti ut ESOPHAGOGASTRODUODENOSCOPY Dysphagia, unspecified type 11/22/2024 12:00 PM [employer] SCIENCE 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 documented as of this encounter Visit Diagnoses Not on filedocumented in this encounter Administered Medications Inactive Administered Medications - up to 3 most recent administrations Medication Order MAR Action Action Date Dose Rate Site ceFAZolin (ANCEF) injection intravenous, As needed, Starting on Tue05/19/18 at 1215, Anesthesia Intra-op Given 05/19/2018 12:15 PM CDT 2,000 mg dexamethasone (DECADRON) injection intravenous, Administer over 1 Minutes, As needed, Starting on Tue05/19/18 at 1230, Anesthesia Intra-op Given 05/19/2018 12:30 PM CDT 8 mg fentaNYL (SUBLIMAZE) preservative free injection intravenous, As needed, Starting on Tue05/19/18 at 1216, Anesthesia Intra-op Given 05/19/2018 12:52 PM CDT 25 mcg Given 05/19/2018 12:25 PM CDT 25 mcg Given 05/19/2018 12:16 PM CDT 50 mcg Lactated Ringer's (LR) infusion 30 mL/hr, intravenous, Continuous, Starting on Tue05/19/18 at 1300, Pre-Op New Bag 05/19/2018 12:50 PM CDT New Bag 05/19/2018 12:10 PM CDT 100 mL/hr New Bag 05/19/2018 11:07 AM CDT 30 mL/hr 30 mL/hr lidocaine PF (XYLOCAINE) 10 mg/mL (1 %) preservative free injection As needed, Starting on Tue05/19/18 at 1217, Anesthesia Intra-op Given 05/19/2018 12:17 PM CDT 50 mg midazolam (VERSED) preservative free injection intravenous, As needed, Starting on Tue05/19/18 at 1216, Anesthesia Intra-op Given 05/19/2018 12:16 PM CDT 2 mg ondansetron (ZOFRAN) injection As needed, nausea, vomiting, Starting on Tue05/19/18 at 1230, Anesthesia Intra-op Given 05/19/2018 12:30 PM CDT 4 mg phenylephrine (NAVJOT-SYNEPHRINE) injection As needed, Starting on Tue05/19/18 at 1230, Anesthesia Intra-op Given 05/19/2018 12:45 PM CDT 50 mcg Given 05/19/2018 12:40 PM CDT 50 mcg Given 05/19/2018 12:30 PM CDT 50 mcg propofol (DIPRIVAN) IV intravenous, Continuous PRN, Starting on Tue05/19/18 at 1217, Anesthesia Intra-op Rate/Dose Change 05/19/2018 12:40 PM CDT 140 mcg/kg/min 64.68 mL/hr Rate/Dose Change 05/19/2018 12:20 PM CDT 150 mcg/kg/min 69 .3 mL/hr New Bag 05/19/2018 12:17 PM CDT 200 mcg/kg/min 92.4 mL/ hr documented in this encounter Care Teams Seismographer Relationship Specialty Start Date End Date Vadim Cameron MD PCP - General 05/17/18 09/05/24 documented as of this encounter
--- OUTSIDE RECORDS SUMMARY | 2024-11-09 13:44 | XMS_ITS | Encounter Summary ---
Author Organization [facility] Healthcare Address [address] [place] [address] Care Team Providers Care Voice Professor Name Role Phone Vadim Cameron MD Primary Care Provider [phone] Reason for Referral * Procedure (Routine) - Closed Specialty Diagnoses / Procedures Referred By Contac t Referred To Contact Diagnoses Moderate persistent asthma without complication Procedures Pulmonary Function Test -[facility]; Methacholine Challenge Akash Clements MD [address] [place] [address] [address] [place] [address] Phone: tel: fax: Referral ID Status Reason Start Date Expiration Date Visits Re quested Visits Authorized [id number] Closed 07/11/2024 08/10/2025 1 1 Reason for Visit * Reason Comments New Patient Asthma Encounter Details Date Type Department Care Team (Late st Contact Info) Description 07/11/2024 9:30 AM CDT Office Visit 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 Gender Identity Not on file Sexual Orientation Not on file documented as of this encounter Last Filed Vital Signs Vital Sign Reading Time Taken Comments Blood Pressure 98/60 07/11/2024 9:20 AM CDT Pulse 86 07/11/2024 9:20 AM CDT Temperature 36.6 ??C (97.9 ??F) 07/11/2024 9:20 AM CD T Respiratory Rate - - Oxygen Saturation 98% 07/11/2024 9:20 AM CDT Inhaled Oxygen Concentration - - Weight 86.2 kg (190 lb 1.6 oz) 07/11/2024 9:20 A M CDT Height 157.5 cm (5' 2 ) 07/11/2024 9:20 AM CDT Body Mass Index 34.77 07/11/2024 9:20 AM CDT documented in this encounter Progress Notes * Akash Clements MD - 07/11/2024 9:30 AM CDT Images from the original note were not included. PULMONARY CLINIC NOTE Visit Date: 07/11/2024 Chief Complaint: Presents today for asthma HPI: Caro Sarabia is a 63 y.o. female w/ PMH of adult onset asthma who presents on 07/11/2024 for evaluation of cough and dyspnea. Seen by my colleague Nilda Williamson. Treated for possible asthma. Had some allergy testing and thought her symptoms were allergy induced. She has been on symbicort for years. Interval History: Dyspnea still with more activity like heavy walking or stairs. Occasional cough infrequently productive of white sputum. She takes symbicort twice daily and albuterol nebulizer twice daily. She reports transient relief from her rescue therapies. Some minimal weight gain over the last several months Exposure History: No relevant exposures Past Medical History: Past Medical History: Diagnosis Date Asthma Allergy Induced Chronic bronchitis (HCC) Hyperlipidemia Kidney stone Family History: No known family history of autoimmune or interstitial disease Children with asthma Social History: Never smoker Review of Systems: Pertinent positives notes in HPI. Otherwise a 10 pt review of systems is negative. OBJECTIVE: Physical Exam: Vitals: 07/11/24 0920 BP: 98/60 BP Location: Left arm Patient Position: Sitting Pulse: 86 Temp: 36.6 ??C (97.9 ??F) TempSrc: Temporal SpO2: 98% Weight: 86.2 kg (190 lb 1.6 oz) Height: 157.5 cm (5' 2 ) General: appears comfortable in no apparent distress Eyes: anicteric, no redness or drainage, EOMI Neck: no thyromegaly or lymphadenopathy Cardiovascular: regular rate and rhythm, no murmurs, no edema or JVD Respiratory: clear to auscultation bilaterally, non labored Gastrointestinal: abdomen is soft and non-tender, + bowel sounds Musculoskeletal: no joint swelling or tenderness Neurologic: No focal deficits Skin: warm and dry Data Review: CT Chest high-resolution 09/08/2023: Personally reviewed and my interpretation is notable for scattered areas of subpleural reticular opacities with a basilar and posterior predominance. There is also some mosaic attenuation No erythrocytosis or peripheral eosinophilia Pulmonary Functions Testing Results: 09/08/2023: FEV1 1.97 L 92% predicted, FVC 2.51 L 95% predicted, FEV1/FVC 0.78, TLC 3.58 84% predicted, RV 0.89 55% predicted, DLCO 14.2 65% predicted. Personally reviewed my interpretation is notable for normal spirometry and lung volumes. Moderate diffusion impairment ASSESSMENT AND PLAN 1. Moderate persistent asthma without complication - the patient does report responsiveness to bronchodilators, although her pulmonary function testing is not particularly suggestive of asthma - I suspect there may be another cause for her dyspnea and cough, I would like to proceed with methacholine challenge to possibly exclude asthma - she may need further evaluation for possible interstitial lung disease as below - for now she may continue Symbicort 2 puffs twice daily and albuterol as needed - Pulmonary Function Test -[facility]; Methacholine Challenge; Future 2. Pulmonary fibrosis (CMS/HCC) (HCC) - pending the above I believe she may warrant further evaluation for early interstitial lung disease, possible NSIP - we will start with a serological evaluation and likely proceed with surveillance imaging and serial pulmonary function testing to monitor for evidence of disease progression - will plan for close follow-up with Nilda Clements MD There may be syntax/grammatical errors in this note due to the use of voice recognition software. 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 TABLE OPERATOR - 11/22/2024 12:30 PM SHAKE TABLE OPERATOR Surgery [facility] [address] [place] [address] Andrew Nava, DO [address] [place] [address] [place] [address] ESOPHAGOGASTRODUODENOSCOPY Scheduled Procedures Name Priority Associated Diagnoses Date/Ti me ESOPHAGOGASTRODUODENOSCOPY Dysphagia, unspecified type 11/22/2024 12:00 PM 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 albuterol 2.5 mg /3 mL (0.083 %) nebulizer solution Take 3 mL (2.5 mg total) by nebulization every 6 (six) hours as needed for wheezing or shortness of breath turmeric root extract 500 mg capsule Take 1,000 mg by mouth daily ascorbic acid (VITAMIN C) 1,000 mg tablet Take 1 tablet (1,000 mg total) by mouth daily cholecalciferol (VITAMIN D-3) 2000 unit capsule Take 1 capsule (2,000 Units total) by mouth daily famotidine (PEPCID) 40 mg tablet Take 1 tablet (40 mg total) by mouth daily as needed for heartburn or indigestion ALPRAZolam (XANAX) 0.5 mg tablet Take 1 tablet (0.5 mg total) by mouth PRN for procedure coming up in Jul 2024 07/04/2024 added in this encounter Care Teams Voice Professor Relationship Specialty Start Date End Date Vadim Cameron MD PCP - General 05/17/18 09/05/24 documented as of this encounter
--- OUTSIDE RECORDS SUMMARY | 2024-11-09 13:44 | XMS_ITS | Encounter Summary ---
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 Name Role Phone Vadim Cameron MD Primary Care Provider [phone] Encounter Details Date Type Department Care Team (Latest Contact Info) Description 05/19/2018 10:23 AM CDT - 05/19/2018 3:02 PM CDT Hospital Encounter [facility] Operating Room [address] [place] [address] Seth Mackenzie, DPM [address] [place] [address] Discharge Disposition: Discharge to home or self care Social History Tobacco Use Types Packs/Day Years Used Date Smoking Tobacco: Never Smokeless Tobacco: Never Alcohol Use Standard Drinks/Week Comments Yes 0 (1 standard drink = 0.6 oz pur e alcohol) occasionally Comments Unknown Sex and Gender Information Value Date Recorded Sex Assigned at Not on file Legal Sex Female 9:29 AM [employer] Gender Identity Not on file Sexual Orientation Not on file documented as of this encounter Last Filed Vital Signs Vital Sign Reading Time Taken Comments Blood Pressure 126/76 05/19/2018 2:54 PM CDT Pulse 64 05/19/2018 2:54 PM CDT Temperature 36.2 ??C (97.1 ??F) 05/19/2018 1:20 PM CD T Respiratory Rate 18 05/19/2018 2:54 PM CDT Oxygen Saturation 97% 05/19/2018 2:04 PM CDT Inhaled Oxygen Concentration - - Weight 77.9 kg (171 lb 11.8 oz) 018 10:40 AM CDT Height 154.9 cm (5' 1 ) 05/19/2018 10:4 0 AM CDT Body Mass Index 32.45 05/19/2018 10:40 AM CDT documented in this encounter Discharge Instructions * Attachments The following attachments cannot be sent through Care Everywhere. * General Anesthesia (Discharge Care) ([place]) * Hydrocodone/Acetaminophen (By mouth) ([place]) documented in this encounter Medications at Time of Discharge atorvastatin (LIPITOR) 10 mg tablet Take 1 tablet (10 mg total) by mouth daily 0 05/01/2018 azelastine (ASTELIN) 137 mcg (0.1 %) nasal spray 1 spray 2 (two) times a day as needed 1 04/07/2018 B.breve-L.acid-L. rham-S.thermo 3 billion cell tablet,chewable Take 1 tablet/chew tab by mouth daily. cetirizine (ZyrTEC) 10 mg tablet Take 1 tablet (10 mg total) by mouth daily garlic 1,000 mg capsule Take 2,000 mg by mouth 2 (two) times a day pjjbljvj-aeqy-rri -folic acid 3,500-18-0.4 unit-mg-mg tablet,chewableIn dications:stop 5 days before surgery Take 1 tablet/chew tab by mouth daily. naproxen sodium 220 mg capsuleIndication s:stop 5 days before surgery Take 220 mg by mouth 2 (two) times a day as needed. noswl-9-tny-epa-d pa-fish oil 1,050-1,200 mg capsuleIndication s:stop 5 days before surgery Take 1 capsule by mouth daily PROAIR HFA 90 mcg/actuation inhaler Inhale 2 puffs every 8 (eight) hours as needed 1 04/12/2018 HYDROcodone-aceta minophen (NORCO) 5-325 mg per tabletIndications :Pain Take 2 tablets by mouth every 6 (six) hours as needed for pain. 40 tablet 05/19/2018 10/15/2024 SYMBICORT 160-4.5 mcg/actuation inhaler Inhale 2 puffs 2 (two) times a day 0 02/06/2018 09/10/2024 documented as of this encounter Ordered Prescriptions Prescription Sig Dispense Quantity Refills Last Filled Start Date End Date HYDROcodone-acetam inophen (NORCO) 5-325 mg per tabletIndications: Pain Take 2 tablets by mouth every 6 (six) hours as needed for pain. 40 tablet 05/19/2018 4 documented in this encounter Discharge Disposition Disposition Code Departure Means Destination Discharge to home or self care documented in this encounter Progress Notes * Abdirashid [facility] - 05/19/2018 10:51 AM CDT Antimicrobial Stewardship Team Note Renal Dose Adjustment This patient has been assessed by the Antimicrobial Stewardship Team and meets P&T-approved criteria for renal dose adjustment of antimicrobial therapy. Will change existing order for from to per protocol. Anti-infectives Start Dose/Rate Route Frequency Ordered Stop 05/19/18 1130 ceFAZolin (ANCEF) 1000 mg in 10 mL sterile water (premix) Indications of Use: Prophylaxis, Surgical 2,000 mg 400 mL/hr over 3 Minutes intravenous Once 05/19/18 1050 No results found for: CREATININE, BUNSER CrCl cannot be calculated (No order found.). No intake/output data recorded. Renal function trend has been assessed. Serum creatinine at this time. No results found for: WBC Temp Readings from Last 3 Encounters: 05/19/18 36.5 ??C (97.7 ??F) (Temporal) Dose adjusted per surgical prophylaxis protocol for adult patients less than 120 kg, give 2000 mg upon induction. For questions please contact: Abdirashid [facility] Pager/ documented in this encounter H&P Notes * Seth Mackenzie DPM - 05/19/2018 11:57 AM CDT General H&P Subjective Patient is a 57 y.o. female with chief complaint of painful hammertoes 5th bilateral.. HPI: Longstanding history of painful hammertoes 5th bilaterally. Past Medical History: Diagnosis Date ??? Asthma Allergy Induced ??? Chronic bronchitis (CMS/HCC) ??? Hyperlipidemia ??? Kidney stone Past Surgical History: Procedure Laterality Date ??? CYSTECTOMY Sacral ??? HIATAL HERNIA REPAIR ??? TUBAL LIGATION Prescriptions Prior to Admission Medication Sig Dispense Refill Last Dose ??? atorvastatin (LIPITOR) 10 mg tablet Take 10 mg by mouth daily. 0 05/18/2018 at 0730 ??? azelastine (ASTELIN) 137 mcg (0.1 %) nasal spray 1 spray 2 (two) times a day as needed. 1 Past Month at Unknown time ??? B.breve-L.acid-L.rham-S.thermo 3 billion cell tablet,chewable Take 1 tablet/chew tab by mouth daily. 05/18/2018 at 0730 ??? cetirizine (ZyrTEC) 10 mg tablet Take 10 mg by mouth daily. 05/18/2018 at 0730 ??? garlic 1,000 mg capsule Take 2,000 mg by mouth 2 (two) times a day. 05/18/2018 at 0730 ??? nvxrvpde-tjis-ate-folic acid 3,500-18-0.4 unit-mg-mg tablet,chewable Take 1 tablet/chew tab by mouth daily. Past Week at Unknown time ??? naproxen sodium 220 mg capsule Take 220 mg by mouth 2 (two) times a day as needed. Past Week atUnknown time ??? lnstc-1-gcv-hjh-fpp-xvts oil 1,050-1,200 mg capsule Take 1 capsule by mouth daily. Past Week atUnknown time ??? PROAIR HFA 90 mcg/actuation inhaler Inhale 2 puffs every 8 (eight) hours as needed. 1 Past Month at Unknown time ??? SYMBICORT 160-4.5 mcg/actuation inhaler Inhale 2 puffs 2 (two) times a day. 0 05/19/2018 at 0730 No Known Allergies Social History Substance Use Topics ??? Smoking status: Never Smoker ??? Smokeless tobacco: Never Used ??? Alcohol use Yes Comment: occasionally History reviewed. No pertinent family history. Review of Systems Objective Vitals: Arrival Vitals [05/19/18 1040] Temp 36.5 ??C (97.7 ??F) Pulse 64 Resp 16 BP 135/75 SpO2 99 % Temp src Temporal Heart Rate Source Monitor Patient Position BP Location FiO2 (%) 24hr Min/Max: Temp Min: 36.5 ??C (97.7 ??F) Max: 36.5 ??C (97.7 ??F) Pulse Min: 64 Max: 64 BP Min: 135/75 Max: 135/75 Resp Min: 16 Max: 16 SpO2 Min: 99 % Max: 99 % Most Recent : Vitals: 05/19/18 1040 BP: 135/75 Pulse: 64 Resp: 16 Temp: 36.5 ??C (97.7 ??F) SpO2: 99% No intake/output data recorded. I/O this shift: In: 1000 [I.V.:1000] Out: - Physical Exam DP/PT 2/4 bilateral + hammertoe bilateral 5th digit. Lab/Radiology/Diagnostic Review: Assessment: Hammertoe bilateral 5th Plan Hammertoe repair bilateral 5th toe. documented in this encounter Miscellaneous Notes * Op Note - Seth Mackenzie DPM - 05/19/2018 12:37 PM CDT Surgeon: Seth Mackenzie D.P.M. Thread Cutter Tender: None Preop diagnosis: Hammer toe bilateral 5th toe Postop diagnosis: Same Procedure: Hammer toe repair bilateral 5th toe Pathology: None Anesthesia: Local mac Hemostasis: Pneumatic ankle tourniquet at 250 mm hg Estimated blood loss: Minimal Materials: 3 0 Vicryl, 3 0 nylon. Injectables: 10 cc of 1 1 mixture of 0.5% Marcaine plain and 1% lidocaine plain Condition: Good Procedure detail: Under mild sedation the patient was brought into the operating room and placed on the operating room table in the supine position. A pneumatic ankle tourniquet was placed about the patient's bilateral lower extremity. Next utilizing approximately 20 cc of a 1 1 mixture of 0.5% Marcaine plain and 1%lidocaine plain local anesthesia was obtained about the patient's bilateral 5th toe. The foot was then scrubbed prepped and draped in usual aseptic manner. Next utilizing the Esmarch bandage the pneumatic ankle tourniquet was inflated to 250 mm hg. Attention was then directed to the dorsal aspect of the R 5th digit where 2 semi elliptical converging oblique incisions were made over the proximal interphalangeal joint oriented from proximal lateral to distal medial with a 15 blade. The interposing wedge of skin was removed and dissection proceeded to the level long extensor tendon. The long extensor tendon was then transected at the PIPJ and reflected proximally thus exposing the PIPJ. The head of the proximal phalanx was freed of all soft tissue attachments and was resected with double- action bone forceps and passed from the field. A rasp was used to smooth and contour the stump of the proximal phalanx. Once all osseous prominences hadbeen removed the area was flushed with copious amounts of normal sterile saline. The long extensor tendon was reapproximated with 3 0 Vicryl and the skin was reapproximated coapted with 3 0 nylon with the toe held in a de rotated fashion. The procedure was then repeated on the L 5th toe as described above. The incision was then dressed with sterile Xeroform gauze, 4x4s, Kerlix, and Coban. The tourniquet was deflated and a prompt hyperemic response was noted to the affected digit. The patient was then transferred to the postanesthesia care unit for for a period of postop monitoring and will be sent home with home instructions written and given orally. Patient will follow up with Dr. Mackenzie on an outpatient basis and medially contact his office if problems arise in the postoperative care. * Brief Op Note - Seth Mackenzie DPM - 05/19/2018 12:37 PM CDT Operative Progress Note Attending Surgeon: Seth Mackenzie DPM Surgical Team: Reweaver: Suly Green RN; Carmina Lacy RN Scrub Relief: Marcell Kapoor RN Scrub: Jade Li SA DATE OF SURGERY : 05/19/2018 Preoperative Diagnosis: Hammertoe 5th bilateral Postoperative Diagnosis: same Procedure: Procedure(s): HAMMERTOE REPAIR BILATERAL FIFTH TOE Operative Findings: See dictation Estimated Blood Loss: No blood loss documented. Intraoperative Fluids: 0 mls Specimens: No specimen collected in procedure Implants: Nothing was implanted during the procedure Blood/Blood Products Transfused: 0 mls Complications: none Condition on Discharge from the operating room was stabel Seth Mackenzie DPM Date: 05/19/2018 Time: 1:14 PM * Pre-Procedure Instructions - Stefani Walker RN - 05/05/2018 3:00 PM CDT We are pleased that you and your doctor have chosen [facility] for your surgery. We hope that the following information will help make your visit a pleasant one. Surgery Date: 05/19/2018 Before your surgery: ?? Notify your doctor of ANY change in your health such as a cold, sore throat, fever, any infection or a change in the problem for which you are having your surgery. ?? Follow any instructions given to you by your doctor or surgeon. One week before surgery STOP taking: ?? All herbal supplements ?? Aspirin (not ordered by your doctor) ?? Aleve, Advil, Motrin, Ibuprofen, or other similar medications (Tylenol is okay). 24 hours before your surgery: ?? No smoking or alcoholic drinks. Night before your surgery: ?? Do not eat or drink anything after midnight. ?? Follow surgeon's instructions for anti-bacterial shower night before and morning of surgery. Day of surgery: ?? Do not swallow any water when you brush your teeth. ?? ONLY take these pills Azelastine Zyrtec Symbicort Inhaler with a tiny sip of water. ?? Use no make-up, nail nigerian, lotions, oils or powders on your skin. ?? Wear comfortable clothes that will not be tight in the area of your surgery. ?? Leave all valuables and jewelry (including all body piercing jewelry) at home. ?? Please bring your a photo ID and insurance cards with you. ?? Check in at the Ambulatory Surgery Check-In. ?? If you are 17 years old or younger, a parent or guardian must come with you. After your Outpatient Surgery: ?? You must have a responsible adult to drive you home, you will not be allowed to drive or take a cab home. ?? We recommend you have someone stay with you for 24 hours after your surgery. What to bring if you are spending the night with us: ?? Bring toiletry items such as: robe, slippers, toothbrush, toothpaste, brush or comb. ?? Bring contact lens, hearing aids, glass cases and denture container if you use any of these items. ?? The hospital will provide you with a gown. Questions or concerns: ?? If you have any questions or concerns regarding your procedure, contact your surgeon as soon as possible. ?? If you have questions regarding your Pre-Admission Testing, please call us. We can be reached atthe number posted at the top of the page. documented in this encounter Plan of Treatment Upcoming Encounters Date Type Department Care Team (Latest Contact Info) Description 11/22/2024 12:00 PM [facility] Hospital Encounter [address] [address] Andrew Nava, DO [address] [address] 11/22/2024 12:00 PM [employer] - 11/22/2024 12:30 PM [facility] Surgery [address] [address] Andrew Nava, DO 3 [facility] [address] [place] [address] ESOPHAGOGASTRODUODENOSCOPY Scheduled Procedures Name Priority Associated Diagnoses Date/Ti ms ESOPHAGOGASTRODUODENOSCOPY Dysphagia, unspecified type 11/22/2024 12:00 PM [employer] documented as of this encounter Procedures Procedure Name Priority Date/Time Associated Diagnosis Comments BUNIONECTOMY/HAMMERTOE REPAIR/OSTEOTOMY 05/19/2018 12:13 PM CDT hammer toe bilateral documented in this encounter Visit Diagnoses Not on filedocumented in this encounter Administered Medications Inactive Administered Medications - up to 3 most recent administrations Medication Order MAR Action Action Date Dose Rate Site Lactated Ringer's (LR) infusion 30 mL/hr, intravenous, Continuous, Starting on Tue05/19/18 at 1300, Pre-Op New Bag 05/19/2018 12:50 PM CDT New Bag 05/19/2018 12:10 PM CDT 100 mL/hr New Bag 05/19/2018 11:07 AM CDT 30 mL/hr 30 mL/hr sodium chloride 0.9% flush 0.5-20 mL 0.5-20 mL, intra-catheter, As needed, line care, Starting on Tue05/19/18 at 1034, Pre-Op, Flush volume based on line type and size. Flush before and after each use. , Indications: FlushingIndications:Flushing documented in this encounter Historical Medications * This list may reflect changes made after this encounter. veqsf-3-bkv-epa-d pa-fish oil 1,050-1,200 mg capsuleIndication s:stop 5 days before surgery Take 1 capsule by mouth daily cetirizine (ZyrTEC) 10 mg tablet Take 1 tablet (10 mg total) by mouth daily garlic 1,000 mg capsule Take 2,000 mg by mouth 2 (two) times a day naproxen sodium 220 mg capsuleIndication s:stop 5 days before surgery Take 220 mg by mouth 2 (two) times a day as needed. B.breve-L.acid-L. rham-S.thermo 3 billion cell tablet,chewable Take 1 tablet/chew tab by mouth daily. dgzdnavx-hhdr-oyy -folic acid 3,500-18-0.4 unit-mg-mg tablet,chewableIn dications:stop 5 days before surgery Take 1 tablet/chew tab by mouth daily. azelastine (ASTELIN) 137 mcg (0.1 %) nasal spray 1 spray 2 (two) times a day as needed 1 04/07/2018 atorvastatin (LIPITOR) 10 mg tablet Take 1 tablet (10 mg total) by mouth daily 0 05/01/2018 PROAIR HFA 90 mcg/actuation inhaler Inhale 2 puffs every 8 (eight) hours as needed 1 04/12/2018 SYMBICORT 160-4.5 mcg/actuation inhaler Inhale 2 puffs 2 (two) times a day 0 02/06/2018 09/10/2024 added in this encounter Active and Recently Administered Medications Times are shown in CDT. Scheduled Medication Order 05/17/2018 05/18/2018 05/19/2018 ceFAZolin (ANCEF) 1000 mg in 10 mL sterile water (premix) 2,000 mg, intravenous, at 400 mL/hr, Administer over 3 Minutes, Once, On Tue05/19/18 at 1130, For 1 dose, Pre-Op, Dose adjusted per surgical prophylaxis protocol for adult patients less than 120 kg, give 2000 mg upon induction., Indications: Prophylaxis, Surgical 1130 (Due) Continuous Medication Order 05/17/2018 05/18/2018 05/19/2018 Lactated Ringer's (LR) infusion 30 mL/hr, intravenous, Continuous, Starting on Tue05/19/18 at 1300, Pre-Op 1107 (New Bag - Prov ider: Janell Goodman RN)1210 (New Bag - Provider: May Retana CRNA)1250 (New Bag - Provider: May Retana CRNA) PRN Medication Order 05/17/2018 05/18/2018 05/19/2018 bupivacaine (MARCAINE) 0.5 % (5 mg/mL) preservative free injection (CANCELED) As needed, Starting on Tue05/19/18 at 1226, Intra-Op 1226 (Given - Provid er: Seth Mackenzie DPM) lidocaine PF (XYLOCAINE) 10 mg/mL (1 %) preservative free injection (CANCELED) As needed, Starting on Tue05/19/18 at 1226, Intra-Op 1226 (Given - Provid er: Seth Mackenzie DPM) sodium chloride 0.9% flush 0.5-20 mL 0.5-20 mL, intra-catheter, As needed, line care, Starting on Tue05/19/18 at 1034, Pre-Op, Flush volume based on line type and size. Flush before and after each use. , Indications: Flushing documented in this encounter Orders Medications Ordered That Grant ht Not Have Been Administered Count Last Ordered Date First Ordered Date bupivacaine (MARCAINE) 0.5 % (5 mg/mL) preservative free injection 1 05/19/2018 ceFAZolin (ANCEF) 1000 mg in 10 mL sterile water (premix) 2 05/19/2018 lidocaine PF (XYLOCAINE) 10 mg/mL (1 %) preservative free injection 1 05/19/2018 sodium chloride 0.9% flush 0.5-20 mL 05/07 Diet Count Last Ordered Date First Orde red Date ADULT DISCHARGE DIET 1 05/19/2018 Nursing Count Last Ordered Date First Orde red Date ACTIVITY 1 05/19/2018 APPLY ICE TO AFFECTED AREA 1 05/19/2018 DISCHARGE INSTRUCTIONS 3 05/19/2018 ELEVATE EXTREMITY 1 05/19/2018 WOUND CARE 2 05/19/2018 documented in this encounter Care Teams Carton Forming Machine Helper Relationship Specialty Start Date End Date Vadim Cameron MD PCP - General 05/17/18 09/05/24 documented as of this encounter
--- OUTSIDE RECORDS SUMMARY | 2024-11-09 13:44 | XMS_ITS | Encounter Summary ---
Author Organization [facility] Healthcare Address [address] [place] [address] Care Team Providers Care Minister Of Religion Name Role Phone Vadim Cameron MD Primary Care Provider [phone] Encounter Details Date Type Department Care Team (Late st Contact Info) Description 05/19/2018 12:21 PM CDT - 05/19/2018 1:46 PM CDT Surgery [facility] Operating Room [address] [place] [id number] Seth Mackenzie DPM [address] [place] [id number] HAMMERTOE REPAIR BILATERAL FIFTH TOE Surgery Details Date/Time Status Location OR Service Patient Class Case Cl ass Case Type Trauma Case? 05/19/2018 12:21 PM Posted [facility] OPERATING ROOM OR Podiatry Foot / Ankle Outpatient Elective Panel 1 Procedure LRB Anes Op Region Wound Class Comments HAMMERTOE REPAIR BILATERAL FIFTH TOE Bilateral Monitor Anesthesia Care Toes Class I - Clean Surgeon Surgeon Role Service Panel Seth Mackenzie DPM Primary Podiatry Foot / Ankle 1 documented in this encounter Social History Tobacco Use Types Packs/Day Years Used Date Smoking Tobacco: Never Smokeless Tobacco: Never Alcohol Use Standard Drinks/Week Comments Yes 0 (1 standard drink = 0.6 oz pur e alcohol) occasionally Comments Unknown Sex and Gender Information Value Date Recorded Sex Assigned at Not on file Legal Sex Female 9:29 AM SURGICAL ELASTIC KNITTER HAND FRAME Gender Identity Not on file Sexual Orientation Not on file documented as of this encounter Last Filed Vital Signs Vital Sign Reading Time Taken Comments Blood Pressure 118/63 05/19/2018 1:30 PM CDT Pulse 61 05/19/2018 1:20 PM CDT Temperature 36.2 ??C (97.1 ??F) 05/19/2018 1:20 PM CD T Respiratory Rate 24 05/19/2018 1:20 PM CDT Oxygen Saturation 97% 05/19/2018 1:20 PM CDT Inhaled Oxygen Concentration - - Weight 77.9 kg (171 lb 11.8 oz) 018 10:40 AM CDT Height 154.9 cm (5' 1 ) 05/19/2018 10:4 0 AM CDT Body Mass Index 32.45 05/19/2018 10:40 AM CDT documented in this encounter Discharge Instructions * Attachments The following attachments cannot be sent through Care Everywhere. * General Anesthesia (Discharge Care) (Martiniquais) * Hydrocodone/Acetaminophen (By mouth) (Martiniquais) documented in this encounter Medications at Time [...] by mouth 2 (two) times a day jogljxwa-pgdz-mlc -folic acid 3,500-18-0.4 unit-mg-mg tablet,chewableIn dications:stop 5 days before surgery Take 1 tablet/chew tab by mouth daily. naproxen sodium 220 mg capsuleIndication s:stop 5 days before surgery Take 220 mg by mouth 2 (two) times a day as needed. bjsui-9-xzm-epa-d pa-fish oil 1,050-1,200 mg capsuleIndication s:stop 5 [...] as needed for pain. 40 tablet 05/19/2018 documented in this encounter Discharge Disposition Disposition Code Departure Means Destination Discharge to home or self care documented in this encounter Progress Notes * Abdirashid James [facility] - 05/19/2018 10:51 AM CDT Antimicrobial Stewardship [...] induction. For questions please contact: Abdirashid James [facility] Pager/ documented in this encounter H&P Notes [...] times a day. 05/18/2018 at 0730 ??? roxgeafb-wawz-fkj-folic acid 3,500-18-0.4 unit-mg-mg tablet,chewable Take 1 tablet/chew tab by mouth daily. Past Week at Unknown time ??? naproxen sodium 220 mg capsule Take 220 mg by mouth 2 (two) times a day as needed. Past Week atUnknown time ??? ryici-9-sza-swh-jip-gxgt oil 1,050-1,200 mg capsule Take 1 capsule [...] 12:37 PM CDT Surgeon: Seth Mackenzie D.P.M. Territory Manager: None Preop diagnosis: Hammer toe bilateral 5th [...] Attending Surgeon: Seth Mackenzie DPM Surgical Team: Manager Of Corporate: Suly Green RN; Carmina Lacy RN Scrub [...] on Discharge from the operating room was kandace Mackenzie DPM Date: 05/19/2018 Time: 1:14 PM * Pre-Procedure Instructions - Stefani Walker RN - 05/05/2018 3:00 PM CDT We are pleased that you and your doctor have chosen [facility] for your surgery. We hope that the [...] of water. ?? Use no make-up, nail mohawk, lotions, oils or powders on your skin. [...] (Latest Contact Info) Description 11/22/2024 12:00 PM SURGICAL ELASTIC KNITTER HAND FRAME Hospital Encounter [address] [address] Andrew Nava, DO [address] [address] 11/22/2024 12:00 PM SURGICAL ELASTIC KNITTER HAND FRAME - 11/22/2024 12:30 PM SURGICAL ELASTIC KNITTER HAND FRAME Surgery [address] [address] Andrew Nava, DO [address] [address] ESOPHAGOGASTRODUODENOSCOPY Scheduled Procedures Name Priority Associated Diagnoses Date/Ti tn ESOPHAGOGASTRODUODENOSCOPY Dysphagia, unspecified type 11/22/2024 12:00 PM SURGICAL ELASTIC KNITTER HAND FRAME documented as of this encounter Procedures Procedure Name Priority Date/Time Associated Diagnosis Comments BUNIONECTOMY/HAMMERTOE REPAIR/OSTEOTOMY 05/19/2018 12:13 PM CDT hammer toe bilateral documented in this encounter Visit Diagnoses Not on filedocumented in this encounter Administered Medications Inactive Administered Medications - up to 3 most recent administrations Medication Order MAR Action Action Date Dose Rate Site bupivacaine (MARCAINE) 0.5 % (5 mg/mL) preservative free injection As needed, Starting on Tue05/19/18 at 1226, Intra-Op Given 05/19/2018 12:26 PM CDT 10 mL Surgical Site Lactated Ringer's (LR) infusion 30 mL/hr, intravenous, Continuous, Starting on Tue05/19/18 at 1300, Pre-Op New Bag 05/19/2018 12:50 PM CDT New Bag 05/19/2018 12:10 PM CDT 100 mL/hr New Bag 05/19/2018 11:07 AM CDT 30 mL/hr 30 mL/hr lidocaine PF (XYLOCAINE) 10 mg/mL (1 %) preservative free injection As needed, Starting on Tue05/19/18 at 1226, Intra-Op Given 05/19/2018 12:26 PM CDT 10 mL Surgical Site sodium chloride 0.9% flush 0.5-20 mL 0.5-20 mL, intra-catheter, As needed, line care, Starting on Tue05/19/18 at 1034, Pre-Op, Flush volume based on line type and size. Flush before and after each use. , Indications: FlushingIndications:Flushing documented in this encounter Historical Medications * This list may reflect changes made after this encounter. avftm-7-dsa-epa-d pa-fish oil 1,050-1,200 mg capsuleIndication s:stop 5 [...] Take 1 tablet/chew tab by mouth daily. uwuvyhhy-gfws-zse -folic acid 3,500-18-0.4 unit-mg-mg tablet,chewableIn dications:stop 5 [...] Count Last Ordered Date First Ordered Date ceFAZolin (ANCEF) 1000 mg in 10 mL sterile water (premix) 2 05/19/2018 sodium chloride 0.9% flush 0.5-20 mL 1 05/07 Diet Count Last Ordered Date First Orde red Date ADULT DISCHARGE DIET 1 05/19/2018 Nursing Count Last Ordered Date First Orde red Date ACTIVITY 1 05/19/2018 APPLY ICE TO AFFECTED AREA 1 05/19/2018 DISCHARGE INSTRUCTIONS 3 05/19/2018 ELEVATE EXTREMITY 1 05/19/2018 WOUND CARE 2 05/19/2018 documented in this encounter Care Teams Minister Of Religion Relationship Specialty Start Date End Date Vadim Cameron MD PCP - General 05/17/18 09/05/24 documented as of this encounter
--- OUTSIDE RECORDS SUMMARY | 2024-11-09 13:44 | XMS_ITS | Encounter Summary ---
Author Organization [facility] Healthcare Address [address] [place] [address] Care Team Providers Care Infusion Rn Name Role Phone Vadim Cameron MD Primary Care Provider Encounter Details Date Type Department Care Team (Late st Contact Info) Description 09/08/2023 12:20 PM CDT Ancillary Procedure [facility] Social History Tobacco Use Types Packs/Day Years Used Date Smoking Tobacco: Never Smokeless Tobacco: Never Alcohol Use Standard Drinks/Week Comments Yes 0 (1 standard drink = 0.6 oz pur e alcohol) occasionally Comments Unknown Sex and Gender Information Value Date Recorded Sex Assigned at Not on file Legal Sex Female 9:29 AM PARAMEDIC SUPERVISOR Gender Identity Not on file Sexual Orientation Not on file documented as of this encounter Plan of Treatment Upcoming Encounters Date Type Department Care Team (Latest Contact Info) Description 11/22/2024 12:00 PM PARAMEDIC SUPERVISOR Hospital Encounter [address] [address] Andrew Nava, DO 3 [facility] [address] [place] [address] 11/22/2024 12:00 PM PARAMEDIC SUPERVISOR - 11/22/2024 12:30 PM PARAMEDIC SUPERVISOR Surgery [address] [address] Andrew Nava, DO 3 [facility] [address] [place] [address] ESOPHAGOGASTRODUODENOSCOPY Scheduled Procedures Name Priority Associated Diagnoses Date/Ti me ESOPHAGOGASTRODUODENOSCOPY Dysphagia, unspecified type 11/22/2024 12:00 PM PARAMEDIC SUPERVISOR documented as of this encounter Procedures Procedure Name Priority Date/Time Associated Diagnosis Comments CT BODY OUTSIDE REFERENCE Routine 09/08/2023 12:20 PM CDT documented in this encounter Results * CT Body Outside Reference (09/08/2023 12:20 PM CDT) Narrative [facility] - 05/04/2024 11:43 AM CDT This order has been auto-finalized and does not contain a result. us Not In File Miscellaneous IMG CT PROCEDURES Linda l Result [facility] documented in this encounter Visit Diagnoses Not on filedocumented in this encounter Care Teams Infusion Rn Relationship Specialty Start Date End Date Vadim Cameron MD PCP - General 05/17/18 09/05/24 documented as of this encounter
== END 2024-11-02 09:16 | disposition home or self-care (01) ==
PROVIDERS: Emergency Provider Emergency Medicine; PCP Family Medicine
DX: S89.91XA Unspecified injury of right lower leg, initial encounter (principal); S79.912A Unspecified injury of left hip, initial encounter; M54.50 Low back pain, unspecified; M47.816 Spondylosis without myelopathy or radiculopathy, lumbar region; J45.909 Unspecified asthma, uncomplicated; E78.5 Hyperlipidemia, unspecified; M16.0 Bilateral primary osteoarthritis of hip; M17.11 Unilateral primary osteoarthritis, right knee; V43.52XA Car driver injured in collision with other type car in traffic accident, initial encounter
CPT/HCPCS: 72100; 73502; 73562; 99284

== ENCOUNTER 2024-12-05 13:15 | Outpatient (RCR) | payer OTHER, SELFPAY ==
--- NOTE | 2024-10-10 09:41 | OPREHPOC ---
Outpatient Therapy Plan of Care This is a Multidisciplinary Plan of Care that may contain components documented by all disciplines (PT, OT, and ST.) PT Problem 1 PT Problem #1 Knowledge Deficit PT Goal 1 Goal / Goal Update Pt to be IND with issued HEP Target Visit 10 PT Problem 2 PT Problem #2 Pain PT Goal 1 Goal / Goal Update 1. Pt to report knee pain no greater than 2/10 in the last week. 2. Pt to return 80% return to prior level of function. Target Visit 10 PT Problem 3 PT Problem #3 Impaired Sensation PT Goal 1 Goal / Goal Update 1. Pt to improve lateral hip strength to 4/5 to improve LE alignment with ambulation 2. Pt to demonstrate a 20lb lift and carry to improve ability to carry laundry basket. 3. Pt to improve 5xSTS time from 22s to 15s to demonstrate a decreased fall risk.
--- NOTE | 2024-10-10 09:41 | PTOPEVAL1 ---
Assessment and note entered by Shanice Guerrero, PT, DPT Evaluation Information Assessment Status Evaluation Diagnosis R knee pain ICD-10 Condition Codes (PT) M25.561 Subjective Information Pt reports R knee pain for the last 3-4 weeks without a known DELILAH. She states she stepped down the stair and had a loud and painful pop. She reports minimal pain at rest, and currently, but states she has modified her activity to avoid pain . She reports a history of hip bursitis. Pt is retired, she enjoys bowling. Reported Pain Level Pain Score 2: Self Report Assessment PT Clinical Summary Pt presents to therapy today for her initial evaluation with a diagnosis of R knee pain. Today she demonstrates decreased hip int rot and flexion ROM, decreased hip flexor length, and decreased ankle ROM. She demonstrates decreased ankle strength, and lateral hip strength. During ambulation she demonstrates an uncompensated Trendelenburg pattern jaylen, jaylen LE ext rot, and increased pelvic motion. Skilled therapy services are indicated to address the deficits noted above, to manage pain, to improve stability, and to return to prior level of function. Plan of Care Interventions Electrical Stimulation,Gait Training,Hot Pack/Cold Pack,Manual Therapy,Neuro Re-education,Patient/ Caregiver Educati,Therapeutic Activities, Therapeutic Exercise PT Services Indicated Yes Treatment Frequency and 2x/wk for 10 visits Duration These treatments will address the objective and functional deficits as defined above. The patient will be advanced safely and appropriately in order for the patient to progress towards his/her prior level of function. Additional exercises will be introduced and as well as a comprehensive home exercise program upon discharge, if needed, ?to ensure carryover of functional gains achieved in the clinic. This treatment plan has been reviewed and agreement upon by the patient.
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
--- NOTE | 2024-11-06 09:55 | PCPTNOTE ---
Patient no showed this date. Called and patient states she forgot her appointment.
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
--- NOTE | 2024-11-21 14:15 | PTOPPROG ---
Assessment and note entered by Shanice Guerrero, PT, DPT Evaluation Information Assessment Status Progress Diagnosis R knee pain ICD-10 Condition Codes (PT) Pain in right knee M25.561 Subjective Information Pt states she has not been really complaint with her exercise and has issues making her appointments as well. She states she is really stiff d/t the cold weather. She states despite this her knee is feeling better. She has been getting back to doing her water aerobics. She reports about 60-70% return to her baseline. States at times it feels like her knee wants to pop again. Has not had any pops since starting therapy. Assessment PT Clinical Summary Pt presents to therapy today for her progress report following 4 visits of skilled therapy to treat her R knee pain. Today she demonstrates improved ankle and hip strength but continues to have decreased hip ROM into flexion and int rot. During ambulation she demonstrates an uncompensated Trendelenburg pattern jaylen, jaylen LE ext rot, and increased pelvic motion. Continuation of skilled therapy services are indicated to address the deficits noted above, to manage pain, to improve stability, and to return to prior level of function. Pt will complete 2 more treatments prior to 12/08/24 and will be discharged at this time d/t change in insurance coverage. Plan of Care Interventions Electrical Stimulation,Gait Training,Hot Pack/Cold Pack,Manual Therapy,Neuro Re-education,Patient/ Caregiver Education,Therapeutic Activities, Therapeutic Exercise PT Services Indicated Yes Treatment Frequency and 1x/wk, until 12/08/24 Duration These treatments will address the objective and functional deficits as defined above. The patient will be advanced safely and appropriately in order for the patient to progress towards his/her prior level of function. Additional exercises will be introduced and as well as a comprehensive home exercise program upon discharge, if needed, ?to ensure carryover of functional gains achieved in the clinic. This treatment plan has been reviewed and agreement upon by the patient.
--- NOTE | 2025-01-01 10:46 | PTOPDC ---
Assessment and note entered by Shanice Guerrero, PT, DPT Evaluation Information Assessment Status Discharge - Pt Not Present Diagnosis R knee pain ICD-10 Condition Codes (PT) Pain in right knee M25.561 Subjective Information Pt completed therapy up until 12/08/24 when her insurance coverage ran out. Pt states she does not intend on having insurance moving forward so would like to be discharged from therapy at this time. Assessment PT Clinical Summary Pt completed 6 visits of skilled therapy from 10/10 to 12/05/24. She will be discharged at this time per her request.
== END 2025-01-01 14:02 | disposition home or self-care (01) ==
LOC: ANHGOSHPT 13:15
PROVIDERS: PCP Family Medicine; Visit Provider Nurse Practitioner Family
DX: M25.561 Pain in right knee (principal)
CPT/HCPCS: 97110; 97112; 97140; 97161; 97530

== ENCOUNTER 2024-12-24 15:15 | Outpatient (CLI) | payer OTHER, SELFPAY ==
--- NOTE | ~2024-12-24 | MM_ITS ---
EXAMINATION: MM screening nellie BI w lydia HISTORY: Screening TECHNIQUE: Craniocaudal and mediolateral oblique 3-D tomosynthesis images were obtained and synthetic 2-D images were generated. CAD analysis was submitted and interpreted. COMPARISON: 09/17/2019 BREAST PARENCHYMAL COMPOSITION: Not dense: There are scattered areas of fibroglandular density. FINDINGS: There is no evidence of suspicious mass, calcification, or architectural distortion to sugg est malignancy in either breast. There has been no suspicious interval change. IMPRESSION: 1. No mammographic evidence of malignancy. 2. Recommend routine screening mammography in one year. BI-RADS Category 1: Negative Reviewed, dictated and finalized at location B. [employer]ESS CONTINUITY STRATEGY DIRECTOR
--- OUTSIDE RECORDS SUMMARY | 2024-12-24 17:56 | XMS_ITS | Referral Summary ---
Author Organization [facility] Address [address] [place] [address] Care Team Providers Care Rat Trapper Name Role Phone Vadim Cameron MD Primary Care Provider [phone] Encounters Date Type Department Care Team Description 11/27/19 25 Orders Only [facility] Pulmonary at [address] [place] [address] Nilda Williamson NP 11/22/19 25 Orders Only [facility] Pulmonary at [address] [place] [address] Nilda Williamson STEELWORKER 11/22/19 25 11:54 AM NEWS OPERATIONS MANAGER Anesthesia Event [address] [address] Aaron Urrutia MD 11/22/19 25 12:05 PM NEWS OPERATIONS MANAGER - 11/22/19 25 12:35 PM NEWS OPERATIONS MANAGER Surgery [address] [address] Andrew Nava, ESOPHAGOGASTRODUODENOSCOPY BALLOON DILATION <30MM 11/22/19 25 10:27 AM NEWS OPERATIONS MANAGER - 11/22/19 25 1:15 PM NEWS OPERATIONS MANAGER Hospital Encounter [address] [address] Andrew Nava, Dysphagia, unspecified type Discharge Disposition: Discharge to home or self care 10/17/20 24 Telephone [facility] Gastroenterology at [address] [place] [address] Andrew Nava DO 10/15/20 24 11:00 AM NEWS OPERATIONS MANAGER Office Visit [facility] Pulmonary at [address] [place] [address] Nilda Williamson NP Pulmonary fibrosis (CMS/HCC) (HCC) (Primary Dx); Mild intermittent asthma without complication; Dysphagia, unspecified type from Last 3 Months Allergies No known [...] a day as needed 1 8 Active fuzudkkp-nfae-p in-folic acid 3,500-18-0.4 unit-mg-mg tablet,chewable Indications:sto p 5 days before surgery Take 1 tablet/chew tab by mouth daily. Active B.breve-L.acid- L.rham-S.thermo 3 billion cell tablet,chewable Take 1 tablet/chew tab by mouth daily. Active naproxen sodium 220 mg capsuleIndicati ons:stop 5 days before surgery Take 220 mg by mouth 2 (two) times a day as needed. Active garlic 1,000 mg capsule Take 2,000 mg by mouth 2 (two) times a day Active cetirizine (ZyrTEC) 10 mg tablet Take 1 tablet (10 mg total) by mouth daily Active andts-9-ley-epa -dpa-fish oil 1,050-1,200 mg capsuleIndicati ons:stop 5 days before surgery Take 1 capsule by mouth daily Active ALPRAZolam (XANAX) 0.5 mg tablet Take 1 tablet (0.5 mg total) by mouth PRN for procedure coming up in Jul 2024 4 Active famotidine (PEPCID) 40 mg tablet Take 1 tablet (40 mg total) by mouth daily as needed for heartburn or indigestion Active cholecalciferol (VITAMIN D-3) 2000 unit capsule Take [...] 4 Active nystatin (Nystop) powder as needed Acti ve famotidine (PEPCID) 40 mg tablet Take 1 tablet (40 mg total) by mouth daily 30 tablet 11 5 11/27/19 26 Active Active Problems Problem Noted Date Diagnosed Date Dysphagia 10/15/2024 Assessment & Plan (10/15/2024 1:27 PM NEWS OPERATIONS MANAGER): I placed a referral for GI today for further evaluation Mild intermittent asthma without complication Assessment & Plan (10/15/2024 1:24 PM NEWS OPERATIONS MANAGER): She was unable to complete methacholine challenge [...] care Assessment & Plan (09/11/2024 12:50 PM NEWS OPERATIONS MANAGER): She was unable to complete methacholine challenge [...] to her plan of care Pulmonary fibrosis ([facility]) 09/11/2024 Assessment & Plan (10/15/2024 1:26 PM NEWS OPERATIONS MANAGER): Further evaluation for early interstitial lung disease [...] 02/2025 Assessment & Plan (09/11/2024 1:04 PM NEWS OPERATIONS MANAGER): Further evaluation for early interstitial lung disease [...] = 0.6 oz pur e alcohol) occasionally AUDIT-C Answer Date Recorded Q1: How often do you have a drink containing alc ohol? Monthly or less 11/22/2024 Average Number of Drinks Not on file 025 Frequency of Binge Drinking Not on file 11/07 Personal Safety Answer Date Recorded Have you ever been in or are you currently in a harmful physical or emotional relationship or is someone making you feel afraid or unsafe? Denies 11/22/2024 Comments Unknown Sex and Gender Information Value Date Recorded Sex Assigned at Not on file Legal Sex Female 9:29 AM NEWS OPERATIONS MANAGER Gender Identity Not on file Sexual Orientation Not on file Last Filed Vital Signs Vital Sign Reading Time Taken Comments Blood Pressure 128/74 11/22/2024 12:55 PM NEWS OPERATIONS MANAGER Pulse 80 11/22/2024 12:55 PM NEWS OPERATIONS MANAGER Temperature 36.7 C (98.1 F) 11/22/2024 12:55 PM NEWS OPERATIONS MANAGER Respiratory Rate 18 11/22/2024 12:55 PM NEWS OPERATIONS MANAGER Oxygen Saturation 99% 11/22/2024 12:55 PM NEWS OPERATIONS MANAGER Inhaled Oxygen Concentration - - Weight 83.9 kg (185 lb) 11/22/2024 10:36 AM NEWS OPERATIONS MANAGER Height 154.9 cm (5' 1 ) 11/22/2024 10:36 AM NEWS OPERATIONS MANAGER Body Mass Index 34.96 11/22/2024 10:36 AM NEWS OPERATIONS MANAGER Plan of Treatment Not on file Procedures Procedure Name Priority Date/Time Associated Diagnosis Comments ENDO ADD ON ESOPHAGOGASTRODUODENOSCOPY BIOPSY 11/22/2024 11:49 AM NEWS OPERATIONS MANAGER Dysphagia, unspecified type ESOPHAGOGASTRODUODENOSCOPY BALLOON DILATION <30MM 11/22/2024 11:49 AM NEWS OPERATIONS MANAGER Dysphagia, unspecified type SURGICAL PATHOLOGY STAT 11/22/2024 10:36 AM NEWS OPERATIONS MANAGER Dysphagia, unspecified type EGD 11/22/2024 10:32 AM NEWS OPERATIONS MANAGER from Last 3 Months Results * Surgical pathology (11/22/2024 10:36 AM NEWS OPERATIONS MANAGER) Tissue (Gastric/Stomach biopsy) 11/22/2024 12:14 PM NEWS OPERATIONS MANAGER Narrative PATHOLOGY [facility] - 11/26/2024 9:33 AM NEWS OPERATIONS MANAGER EPIC results best viewed via link to PDF [facility] Department of Pathology [address] [place], [place] [id number] Note to Patients: This report may contain a detailed description of human tissue sent by a health care provider to the laboratory for pathologic evaluation. The content of this report is essential for diagnosis and may provide important critical findings. This information may be unfamiliar to patients to review without a medical professional present. It is advised that the patient review this report in the presence of a health care provider who can answer questions and explain the details. Final Report Patient Name: CARO SARABIA Address: [address] [place] [address] Gender: F : 1960 (Age: 64) Service: Gastro Location: [facility] ENDO [facility] #: [id number] Patient Type: [facility] Taken: 11/22/2024 Received: 11/23/2024 Accessioned: 11/23/2024 Reported: 11/26/2024 Physician(s):Henrietta VazquezO. Diagnosis: Stomach, biopsy: - Antral type gastric mucosa showing mild chronic inactive gastritis. - Negative for intestinal metaplasia and dysplasia. - Negative for Helicobacter. Ted Welch M.D. Report Electronically Reviewed and Signed Out By Ted Welch M.D. 11/26/2024 09:33:36 Specimen(s) Received: A: Gastric biopsies for H. pylori Microscopic Description: Sections show antral-type gastric mucosa showing mild chronic inactive gastritis. No significant acute inflammatory infiltrate is seen. There is no evidence of intestinal metaplasia or dysplasia. No Helicobacter organisms are identified. Clinical History: Dysphagia. EGD. Gross Description: The specimen is submitted in a single formalin filled container labeled WANDENA ROBERT and gastric biopsies . It is one woods tissue fragment measuring 2 mm. All in one cassette. Chino Galvin R.N., P.A./Christy Ritter M.D. REPORT IMAGES AND SCANNED DOCUMENTS, IF INCLUDED, ONLY VIEWABLE IN PDF VERSION OF REPORT The performance characteristics of some immunohistochemical stains, fluorescence in-situ hybridization tests and immunophenotyping by flow cytometry cited in this report (if any) were determined by the Surgical Pathology Department at [facility] as part of an ongoing senior software quality analyst program and in compliance with federally mandated regulations drawn from the Clinical Laboratory Improvement Act of 1988 (CLIA '88). Some of these tests rely on the use of analyte specific reagents and are subject to specific labeling requirements by the US Food and Drug Administration. Such diagnostic tests may only be performed in a facility that is certified by the Department of Health and Human Services as a high complexity laboratory under CLIA '88. The FDA has determined that such clearance or approval is not necessary. This test is used for clinical purposes. It should not be regarded as investigational or for research. Nevertheless, federal rules concerning the medical use of analyte specific reagents require that the following disclaimer be attached to the report: This test was developed and its performance characteristics determined by the Surgical Pathology Department [facility]. It has not been cleared or approved by the U. S. Food and Drug Administration. Note for decalcified specimens: This assay has not been validated on decalcified tissues. Results should be interpreted with caution given the possibility of false negativity on decalcified specimens Andrew Nava DO LAB PATHOLOGY ORDERABLES Final Result PATHOLOGY [facility] [address] [place] [address] * EGD (11/22/2024 10:32 AM NEWS OPERATIONS MANAGER) Anatomical Region Laterality Modality Other Narrative Procedure Note Andrew Nava DO - 11/22/2024 10:32 AM CST Center Patient Name: Caro Sarabia Procedure Date: 11/22/2024 10:32 AM Date of : 1960 Admit Type: Outpatient Age: 64 Gender: Female Attending MD: Andrew Nava D.O. Room: [facility] ENDOSCOPY ROOM 3 Note Status: Finalized Patient Profile: Refer to note in patient chart for documentation of history and physical. Procedure: Upper GI endoscopy Indications: Dysphagia Referring MD: Nilda Williamson, F.N.P. Providers: Andrew Nava D.O. Impression: - Abnormal esophageal motility, doubt esophageal spasm. Dilated. - Normal stomach. - Normal examined duodenum. - No specimens collected. Recommendation: - Await pathology results. - Resume previous diet. - Continue present medications. - Return to my office in 6 months. -Anti-reflux regimen reinforced. Medicines: Monitored Anesthesia Care Complications: No immediate complications. Estimated Blood Loss: Estimated blood loss was minimal. Procedure: Pre-Anesthesia Assessment: - As per anesthesia. The benefits, risks, and alternatives to theprocedure and sedation were discussed and informed consentwas obtained. The scope was passed under direct vision. The Endoscope GIF-H190 [id number] was introduced through the mouth, and advanced to the second partof duodenum. The upper GI endoscopy was accomplished without difficulty. The patient tolerated the procedure well. Findings: Abnormal motility was noted in the distal esophagus. There are extra peristaltic and tertiary waves in the esophageal body. No definite stricture was noted. A TTS dilator was passed through the scope. Dilation with a 15-16.5-18 mm balloon dilator was performed to 18 mm.No mucosal disruption. Examination in the stomach revealed an intact Brandon fundoplication.The stomach is otherwise unremarkable. Biopsies were taken for H pylori testing. The examined duodenum was normal. Electronically signed by Andrew Nava M.D. Andrew Nava D.O. 11/22/2024 12:22:32 PM Number of Addenda: 0 Note Initiated On: 11/22/2024 10:32 AM Procedure Code(s): --- Professional --- 09020, Esophagogastroduodenoscopy, flexible, transoral; with transendoscopic balloon dilation of esophagus (less than 30 mmdiameter) 84631, 59, Esophagogastroduodenoscopy, flexible, transoral; withbiopsy, single or multiple --- Technical --- 33377, Esophagogastroduodenoscopy, flexible, transoral; with transendoscopic balloon dilation of esophagus (less than 30 mmdiameter) 11253, 59, Esophagogastroduodenoscopy, flexible, transoral; withbiopsy, single or multiple Diagnosis Code(s): --- Professional --- K22.4, Dyskinesia of esophagus R13.10, Dysphagia, unspecified --- Technical --- K22.4, Dyskinesia of esophagus R13.10, Dysphagia, unspecified CPT copyright 2020 [employer]. All rights reserved. The codes documented in this report are preliminary and upon certified coder reviewmay be revised to meet current compliance requirements. Recognized by the [employer] for promoting quality in endoscopy Andrew Nava DO ENDOSCOPY PROCEDURES Final Res ult from Last 3 Months Insurance [facility] Advance Directives For more information, please contact: [phone] * Full Code (Latest Code Status on File) Date Activated Date Inactivated Comments 11/22/2024 10:31 AM 11/22/2024 5:25 PM * Full Code Date Activated Date Inactivated Comments 11/22/2024 10:31 AM 11/22/2024 10:31 AM * Full Code Date Activated Date Inactivated Comments 05/19/2018 2:04 PM 05/19/2018 5:08 PM Care Teams Rat Trapper Relationship Specialty Start Date End Date Vadim Cameron MD [address] [place] [address] PCP - General Family Medicine 09/06/24
--- OUTSIDE RECORDS SUMMARY | 2024-12-24 17:56 | XMS_ITS | Clinical Summary ---
Author Organization [facility] Address [address] [place] [address] Care Team Providers Care Recycler Forklift Driver Truck Driver Name Role Phone Vadim Cameron MD Primary Care Provider [phone] Allergies No known active allergies Medications PROAIR HFA 90 mcg/actuation inhaler Inhale 2 puffs every 8 (eight) hours as needed 1 8 Active atorvastatin (LIPITOR) 10 mg tablet Take 1 tablet (10 mg total) by mouth daily 0 8 Active azelastine (ASTELIN) 137 mcg (0.1 %) nasal spray 1 spray 2 (two) times a day as needed 1 8 Active btiezvvt-jfeh-z in-folic acid 3,500-18-0.4 unit-mg-mg tablet,chewable Indications:sto p [...] (10 mg total) by mouth daily Active ismaa-8-wjw-epa -dpa-fish oil 1,050-1,200 mg capsuleIndicati ons:stop 5 [...] 10/15/2024 Assessment & Plan (10/15/2024 1:27 PM HEAD OF IT): I placed a referral for GI today for further evaluation Mild intermittent asthma without complication Assessment & Plan (10/15/2024 1:24 PM HEAD OF IT): She was unable to complete methacholine challenge [...] care Assessment & Plan (09/11/2024 12:50 PM HEAD OF IT): She was unable to complete methacholine challenge [...] to her plan of care Pulmonary fibrosis ([facility]) 09/11/2024 Assessment & Plan (10/15/2024 1:26 PM HEAD OF IT): Further evaluation for early interstitial lung disease [...] 02/2025 Assessment & Plan (09/11/2024 1:04 PM HEAD OF IT): Further evaluation for early interstitial lung disease has been initiated with autoimmune serologies and high-resolution CT Isolated positive BOB antibody At this time I will plan for surveillance imaging with high resolution CTand serial pulmonary function testing to monitor for evidence of disease progression in six months Encounters Date Type Department Care Team Description 11/27/19 Orders Only [facility] Pulmonary at [address] [place] [address] Nilda Williamson NP 11/22/19 25 12:05 PM HEAD OF IT - 11/22/19 25 12:35 PM HEAD OF IT Surgery [address] [address] Andrew Nava, DO ESOPHAGOGASTRODUODENOSCOPY BALLOON DILATION <30MM 11/22/19 11:54 AM HEAD OF IT Anesthesia Event [address] [address] Aaron Urrutia MD 11/22/19 25 10:27 AM HEAD OF IT - 11/22/19 25 1:15 PM HEAD OF IT Hospital Encounter [facility] [address] [place] [address] Andrew Nava DO Dysphagia, unspecified type Discharge Disposition: Discharge to home or self care 11/22/19 25 Orders Only [facility] Pulmonary at [address] [place] [address] Nilda Williamson NP 10/17/20 24 Telephone [facility] Gastroenterology at [address] [place] [address] Andrew Nava DO 10/15/20 24 11:00 AM HEAD OF IT Office Visit [facility] Pulmonary at [address] [place] [address] Nilda Williamson NP Pulmonary fibrosis (CMS/HCC) ([facility]) (Primary Dx); Mild intermittent asthma without complication; Dysphagia, unspecified type from Last 3 Months Surgical History Surgery Date Site/Laterality Comments HIATAL HERNIA REPAIR CYSTECTOMY Sacral TUBAL LIGATION ESOPHAGOGASTRODUODENOSCOPY 11/22/2024 Medical History Medical History Date Comments Asthma Allergy Induced Kidney stone Pulmonary fibrosis (CMS/HCC) (HCC) 09/11/2024 HLD (hyperlipidemia) Metabolic dysfunction-associ ated steatotic liver disease (MASLD) GERD (gastroesophageal reflux disease) Esophageal dysmotility Family History Medical History Relation Name Comments Heart disease Broths[place]hi Buck Open Heart surgery Brother Heber Unsure of [...] on file Legal Sex Female 9:29 AM HEAD OF IT Gender Identity Not on file Sexual Orientation Not on file Obstetrics History Last Filed Vital Signs Vital Sign Reading Time Taken Comments Blood Pressure 128/74 11/22/2024 12:55 PM HEAD OF IT Pulse 80 11/22/2024 12:55 PM HEAD OF IT Temperature 36.7 C (98.1 F) 11/22/2024 12:55 PM HEAD OF IT Respiratory Rate 18 11/22/2024 12:55 PM HEAD OF IT Oxygen Saturation 99% 11/22/2024 12:55 PM HEAD OF IT Inhaled Oxygen Concentration - - Weight 83.9 kg (185 lb) 11/22/2024 10:36 AM HEAD OF IT Height 154.9 cm (5' 1 ) 11/22/2024 10:36 AM HEAD OF IT Body Mass Index 34.96 11/22/2024 10:36 AM HEAD OF IT Plan of Treatment Health Maintenance Due Date Last Done Comments Breast Cancer Screening-Mammogram 1960 Cervical Cancer Screening 1960 Colon Cancer Screening-Colonoscopy 1960 Depression Screening 1960 Hepatitis C Screening 1960 DTaP/Tdap/Td Vaccine (1 - Tdap) 1972 Hepatitis B Screening 1979 Regular Well Visit/Exam 18-64 1979 Zoster Vaccine (3 of 3) 06/19/2024 04/24/2024, 06/08 Covid-19 Vaccine (5 - 2023-2 5 season) 2024 08/01/2023, 11/10/2021, 02/15/2021, Additional history exists Influenza Vaccine (#1) 2024 , 08/23/2022, 10/14/2021, Additional history exists Pneumococcal vaccine <65 Completed 04/24/2024 Procedures Procedure Name Priority Date/Time Associated Diagnosis Comments ENDO ADD ON ESOPHAGOGASTRODUODENOSCOPY BIOPSY 11/22/2024 11:49 AM HEAD OF IT Dysphagia, unspecified type ESOPHAGOGASTRODUODENOSCOPY BALLOON DILATION <30MM 11/22/2024 11:49 AM HEAD OF IT Dysphagia, unspecified type SURGICAL PATHOLOGY STAT 11/22/2024 10:36 AM HEAD OF IT Dysphagia, unspecified type EGD 11/22/2024 10:32 AM HEAD OF IT from Last 3 Months Results * Surgical pathology (11/22/2024 10:36 AM HEAD OF IT) Tissue (Gastric/Stomach biopsy) 11/22/2024 12:14 PM HEAD OF IT Narrative PATHOLOGY [facility] - 11/26/2024 9:33 AM HEAD OF IT EPIC results best viewed via link to PDF [facility] Department of Pathology [address] [place], [place] [id number] Note to Patients: This report may contain [...] Final Report Patient Name: CARO SARABIA Address: [address] [place] [address] Gender: F : 1960 (Age: 64) Service: Gastro Location: [facility] Hospital #: [id number] Patient Type: [facility] Taken: 11/22/2024 Received: 11/23/2024 Accessioned: 11/23/2024 Reported: 11/26/2024 Physician(s):Dr. Andrew Nava D.O. Diagnosis: Stomach, biopsy: - Antral type gastric [...] determined by the Surgical Pathology Department at [facility] as part of an ongoing supervisor quality control program and in compliance with federally mandated [...] characteristics determined by the Surgical Pathology Department [facility]. It has not been cleared or approved by the U. S. Food and Drug Administration. Note for decalcified specimens: This assay has not been validated on decalcified tissues. Results should be interpreted with caution given the possibility of false negativity on decalcified specimens Andrew Nava DO LAB PATHOLOGY ORDERABLES Final Result PATHOLOGY [facility] [address] [place] [address] * EGD (11/22/2024 10:32 AM HEAD OF IT) Anatomical Region Laterality Modality Other Narrative Procedure Note Andrew Nava, DO - 11/22/2024 10:32 AM CST [facility] Patient Name: Caro Sarabia Procedure Date: 11/22/2024 10:32 AM Date of : 1960 Admit Type: Outpatient Age: 64 Gender: Female Attending MD: Andrew Nava D.O. Room: [facility] ENDOSCOPY ROOM 3 Note Status: Finalized Patient [...] passed under direct vision. The Endoscope GIF-H190 [id number] was introduced through the mouth, and advanced [...] 10:32 AM Procedure Code(s): --- Professional --- 14967, Esophagogastroduodenoscopy, flexible, transoral; with transendoscopic balloon dilation of esophagus (less than 30 mmdiameter) 73992, 59, Esophagogastroduodenoscopy, flexible, transoral; withbiopsy, single or multiple --- Technical --- 70830, Esophagogastroduodenoscopy, flexible, transoral; with transendoscopic balloon dilation of esophagus (less than 30 mmdiameter) 89352, 59, Esophagogastroduodenoscopy, flexible, transoral; withbiopsy, single or multiple Diagnosis Code(s): --- Professional --- K22.4, Dyskinesia of esophagus R13.10, Dysphagia, unspecified --- Technical --- K22.4, Dyskinesia of esophagus R13.10, Dysphagia, unspecified CPT copyright 2020 [employer] [place] [employer]. All rights reserved. The codes documented in this report are preliminary and upon explosive operator reviewmay be revised to meet current compliance requirements. Recognized by the [place] [employer] for promoting quality in endoscopy Andrew Nava DO ENDOSCOPY PROCEDURES Final Res ult from Last 3 Months Insurance [facility] Advance Directives For more information, please contact: [phone] * Full Code (Latest Code Status on File) Date Activated Date Inactivated Comments 11/22/2024 10:31 AM 11/22/2024 5:25 PM * Full Code Date Activated Date Inactivated Comments 11/22/2024 10:31 AM 11/22/2024 10:31 AM * Full Code Date Activated Date Inactivated Comments 05/19/2018 2:04 PM 05/19/2018 5:08 PM Care Teams Recycler Forklift Driver Truck Driver Relationship Specialty Start Date End Date Vadim Cameron MD [address] [place] [address] PCP - General Family Medicine 09/06/24
--- OUTSIDE RECORDS SUMMARY | 2024-12-24 17:56 | XMS_ITS | Continuity of Care Document ---
Author Organization [facility] Address [address] [place] [address] [address] [place] [address] Phone Care Team Providers Care Circuit Clerk Name Role Phone Valentin OD, Andrew Unavailable Unavailable Advance Directives Directive Yes / No Effective Date File Name No Information Encounters Encounter Description Practice Location Reason(s) For Visit Diagnoses Date Provider Providers Copied on Encounter [facility], [address] [place] [address] [address], [place], [place], [id number], [place] tel:[phone] [address] [facility] No Information 0 1-200 4 Valentin OD Andrew. [address] , [address], [place], [address], [place]. tel:[phone] Family History Family Member Type Diagnosis Age At Onset No Information Payers Payer name Insurance type Covered green party ID Authoriza tion(s) No Information Social History [...]
--- OUTSIDE RECORDS SUMMARY | 2024-12-24 17:57 | XMS_ITS | Clinical Summary ---
Author Organization [facility] Address [address] [place] [id number] Care Team Providers Care Meter Mechanic Name Role Phone Cris Wilson Primary Care Provider [phone] Allergies No known active allergies Medications No [...] on file Legal Sex Female 8:52 AM HYDROLOGIC MODELER Gender Identity Not on file Sexual Orientation Not on file Last Filed Vital Signs Vital Sign Reading Time Taken Comments Blood Pressure 138/64 01/04/2023 12:09 PM HYDROLOGIC MODELER Pulse 69 01/04/2023 12:09 PM HYDROLOGIC MODELER Temperature 36.4 C (97.5 F) 01/04/2023 12:09 PM HYDROLOGIC MODELER Respiratory Rate 19 01/04/2023 12:09 PM HYDROLOGIC MODELER Oxygen Saturation 96% 01/04/2023 12:09 PM HYDROLOGIC MODELER Inhaled Oxygen Concentration - - Weight 79.4 kg (175 lb) 01/04/2023 9:00 AM HYDROLOGIC MODELER Height 156.2 cm (5' 1.5 ) 01/04/2023 9:00 AM HYDROLOGIC MODELER Body Mass Index 32.53 01/04/2023 9:00 AM HYDROLOGIC MODELER Plan of Treatment Health Maintenance Due Date [...] (1 - 1-dose 75+ series) 2036 Meningococcal B Vaccine Aged Out No l onger eligible based on patient's age to complete this topic Meningococcal Vaccine Aged Out No miguel dawna eligible based on patient's age to complete this topic Pneumococcal Vaccine: Pediatrics (0 to 5 Years) and At-Risk Patients (6 to 64 Years) Aged Out No longer eligible based on patient's age to complete this topic RSV Immunizations Under 20 Months Aged Out No longer eligible based on patient's age to complete this topic Insurance [facility] C/O PROVIDER SERVICES [place] LOYA [id number] Care Teams Meter Mechanic Relationship Specialty Start Date End Date Cris Wilson PA [address] [place] [address] PCP - General PHYSICIAN [employer] 01/04/23
--- OUTSIDE RECORDS SUMMARY | 2024-12-24 17:57 | XMS_ITS | Data Portability ---
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 Plan of Treatment Reminders Order Date Submit Date Provider Last Modified By Organization Details Last Modified Time Details Appointments [facility]EST 2024 08:30A M SANDHYA LACY MD Not available Not available Not available Lab None recorded. Referral None recorded. Procedures None recorded. Surgeries hysterosc opy, surgical, with biopsy of endometri um and/or polypecto my (SURG) [address], [facility] [address], [place], [address], 07/03/2024 13:48:37 Imaging MAMMO, screening , digital, bilateral 2023 024 [facility], [address], [address] [address], [place], [address], 08/15/2024 04:01:34 US, pelvis 2023 024 [email or web address] [facility], [address], [address], [place], [address], 06/26/2024 12:49:54 US, transvagi nal 2023 024 [email or web address] [facility], [address], [address], [place], [address], 06/26/2024 12:49:54 US, pelvis, complete 2023 024 [email or web address] [address], [address], [place], [address], 07/02/2024 08:17:22 Medication Orders None recorded. Patient TargetsNo targets [...] sonia: Adama Meier Colle cted: 03/20 1739 SEX THERAPIST Order ing Locat ion: [place] Patho log[facility] [...] Gross ed by Anni malagon Not Available [facility] (Lab) [address], [place], [address], 03/21/2024 17:41:41 08/01/20 24 08/01/2024 SURGI LIZETH [...] Gross ed by Zain Miller Not Available [facility] (Lab) [address], [place], [address], 08/03/2024 14:50:28 03/14/20 24 03/14/2024 US, chad bethea No observ ation record ed. [email or web address] [facility] [address], [place], [address], 03/14/2024 17:04:13 03/14/20 24 03/14/2024 US, justina rucker No observ ation record ed. [email or web address] [facility] [address], [place], [address], 03/14/2024 17:04:04 03/14/20 24 03/14/2024 US, chad s No observ ation record ed. [email or web address] Alvarez [address] [facility], [place], [address], 03/26/2024 12:36:07 06/26/20 24 06/26/2024 US, pelvi s No observ ation record ed. [email or web address] [facility] [address], [place], [address], 06/26/2024 17:41:29 06/26/20 24 06/26/2024 US, trans vagin al No observ ation record ed. [email or web address] [facility] [address], [place], [address], 06/26/2024 17:41:40 06/26/20 24 06/26/2024 US, pelvi s No observ ation record ed. [email or web address] Kim [address], [place], [address], 06/26/2024 23:34:13 Result Notes None recorded. Procedures Surgical History Date Name Laterality Status Provider Name and Address Organization Details Recorded Time 08/01/20 24 Hysteroscopy completed SANDHYA LACY MD [address], [place], [address], [facility] 08/01/2024 15:09:58 07/19/20 24 Most Recent Bone Density completed Abbie Deutsch [facility] 08/08/2024 09:30:34 03/20/20 24 cervical polypectomy completed Yanna Webb [facility] 03/27/2024 16:46:44 01/03/20 24 Date of Last Pap Smear completed Frannie Begum [facility] 03/08/2024 16:32:35 07/08/20 23 Date of Last Mammogram completed Frannie Begum [facility] 01/03/2024 14:33:28 04/07/20 23 extraction of cataract completed Frannie Begum [facility] 01/03/2024 14:40:09 04/25/20 19 completed Abbie Deutsch [facility] 08/08/2024 09:49:40 04/21/20 19 Date of Last Colonoscopy completed Frannie Begum [facility] 03/08/2024 16:31:51 04/21/20 19 Colonoscopy completed Yanna Webb [facility] 03/27/2024 16:48:20 06/07/20 15 hernia repair completed [facility] 01/03/2024 14:39:36 11/07/19 10 Breast Biopsy completed Yanna Webb [facility] 03/27/2024 16:45:09 01/05/19 94 Tubal Ligation completed [facility]annie Abner [facility] 01/03/2024 14:38:14 01/05/19 94 Thyroid Surgery completed Yanna Webb [facility] 03/27/2024 16:48:07 11/07/18 79 procedure on back completed Yanna Webb [facility] 03/27/2024 16:47:27 Imaging Results Imaging Date Name Status LastModified by Organization Details LastModified Time 03/14/2024 US, pelvis completed [email or web address] [facility] [address], [place], [address], 03/14/2024 17:04:13 03/14/2024 US, transvaginal completed [email or web address] Vee crowe [address], [place], [address], 03/14/2024 17:04:04 03/14/2024 US, pelvis completed LEMUEL Kim [address], [place], [address], 03/26/2024 12:36:07 06/26/2024 US, pelvis completed [email or web address] [facility] [address], [place], [address], 06/26/2024 17:41:29 06/26/2024 US, transvaginal completed [email or web address] Vee crowe [address], [place], [address], 06/26/2024 17:41:40 06/26/2024 US, pelvis completed [email or web address] Kim [address], [place], [address], 06/26/2024 23:34:13 Procedure Notes None recorded. Medical Equipment None Reported. Allergies Allergen ID Allergen Name Allergen Category Reaction Reaction Severity Criticality Documentation Date Start Date Code Code System Note Provider Name and Address Organization Details Recorded Time 50677 tree nut food Not available Not available Not available 01/03/2024 23297 UNK Frannie davis [facility] 4 14:21:22 83381 walnut allergeni c extract food Not available Not available Not available 01/03/2024 11382 0 RxNorm Frannie davis, [facility] 4 14:21:32 98067 grape extract food,medi cation Not available Not available Not available 01/03/2024 73198 2 RxNorm Frannie davis [facility] 4 16:31:11 05482 pecan nut food Not available Not available Not available 04/12/2024 [id number] ANTONIO davis [facility] 4 10:00:44 26694 grass pollen environme nt,medica tion Not available Not available Not available 04/12/2024 [id number] ANTONIO davis [facility] 4 10:00:49 Medications Name Sig [...] THREE TIMES A WEEK BY VAGINAL ROUTE 2024 active Not Available Not Available Not Avai lable albuterol sulfate HFA 90 mcg/actuati on aerosol [...] Updated DateTime 04/12/2024 154.94 cm 35.3 kg/m2 25586.05 g 134 mm[Hg] 82 mm[Hg] Radha Hammond [facility] 10:00:13 Date Recorded Body height Body mass index (BMI) Body weight Systolic blood pressure Diastolic blood pressure Provider Name and Address Organization Details Last Updated DateTime 06/22/2024 154.94 cm 35.8 kg/m2 80750.39 g 133 mm[Hg] 88 mm[Hg] Radha Stephany [facility] 4 12:33:19 Date Recorded Body height Body mass index (BMI) Body weight Systolic blood pressure Diastolic blood pressure Provider Name and Address Organization Details Last Updated DateTime 08/01/2024 154.94 cm 36.5 kg/m2 11911.33 g 105 mm[Hg] 69 mm[Hg] [facility] 4 11:06:44 Date Recorded Body height Body mass index (BMI) Body weight Systolic blood pressure Diastolic blood pressure Provider Name and Address Organization Details Last Updated DateTime 08/08/2024 154.94 cm 36.5 kg/m2 81672.33 g 111 mm[Hg] 74 mm[Hg] Abbie [facility] 4 09:53:09 Social History Question Answer Notes LastModified by Organizat ion Details LastModified Time Tobacco Smoking Status Never Smoker Frannie davis, [facility] 01/03/2024 14:37:45 What Is Your [...] Or The Highest Degree You Have Received? [id number] Information not available 03/08/2024 What Is Your Occupation? Retired [email or web address] Information not available 04/12/2024 Are There Any Guns Present In Your Home? No Information not available 03/08/2024 Have You Ever Been Counseled For Unhealthy Alcohol Use? No [email or web address] Information not available 03/27/2024 Do You Use Protection During Sex? No Information not available 03/08/2024 Do You Use Your Seat Belt Or Car Seat Routinely? Yes Information not available 03/08/2024 Do You Have Smoke And Carbon Monoxide Detectors In Your Home? Yes Information not available 03/08/2024 At What Age Did You Start Smoking Tobacco? 0 [email or web address] Information not available 08/01/2024 How Much Tobacco Do You Smoke? No Information not available 03/08/2024 Do You Feel Stressed (tense, Restless, Nervous, Or Anxious, Or Unable To Sleep At Night)? [id number] Information not available 03/08/2024 Do You Use Any Illicit Or Recreational Drugs? No Information not available 01/03/2024 Do You Use Sunscreen Routinely? Yes Information not available 03/08/2024 How Many Years Have You Smoked Tobacco? 0 [email or web address] Information not available 03/27/2024 Have You Used IV Drugs? No Information not available 03/08/2024 Sex: Unknown Functional Status Question Answer Note LastModified by Organizat ion Details LastModified Time Do you have difficulty walking or climbing stairs? No [email or web address] Information not available 03/27/2024 Are you able to walk? YESWOREST Information not available 03/08/2024 Are you able to care for yourself? Yes Information not available 03/27/2024 Do you have difficulty dressing or bathing? No Information not available 03/27/2024 What is your [...] (Food, seasonal, environmental ) Y Other N Drug/Latex Allergies/Reactions N Blood Transfusion N Breast Cancer N Dermatologic Disorders N Lung Disease N Defects or Inherited Disease N Breast Problem Y Gestational Diabetes N Hematologic disorders N Anesthesia Complications N History of STI N Deep Vein Thrombosis N Polycystic ovary syndrome N Anxiety Disorder N Autoimmune disease N Arthritis Y Polyps Y Infertility N Acid Reflux (GERD) Y History of abnormal pap N Cancer N Varicosities N Stroke N Neurologic/Epilepsy Y Endometriosis N High Cholesterol Y Fibromyalgia N Headaches N Kidney Disease N Heart Problems N Thyroid Problems Y Kidney or Bladder Problems N GI Problems Y Eating Disorder N Anemia [...] Diagnosis/Indication Diagnosis SNOMED-CT Code Diagnosis ICD10 Code Diagnosis Note [id number] Katelynn Montes [facility] [address] [address] 01/03/2024 13:42:25 01/03/2024 15:05:59 Gynecologic examination 41971037 Z01.419 Take Calcium with Vitamin D 12-1500mg daily. Do monthly self breast exams. It is advised to get annual flu shot in the fall and she could obtain at [facility] or [facility] clinic. If you haven't received the Tdap vaccine in the last 10 years you should obtain one as well. Have mammogram yearly, bone density every 2-3 years and colonoscop y every 5-10 years depending on findings and history. Engage in daily exercise of low impact aerobic exercise 45-60 minutes 4-5 times weekly. Avoid tobacco and illicit drugs as well as using moderation with alcohol intake less than 1-2 8 oz beverages daily. This lifestyle behavior pattern will lead to less health conditions and longer life span. If BMI greater than 25 weight watchers or dietary consult advised. Questions have been answered. Patient appears to understand instructio ns, but if you have any further questions call or respond to this email Pap/hpv sentSTD Screen declinedGe netic Screen discussedC olon Screen UTD PCPDexa Screen PCPRoutine Labs PCPMammo PCP UTD Vaginitis 39941163 N76.0 Suspect BV on exam likely from recently using depends x 1wk for diarrhea.W e discussed vCG's and taking breaks from Depends if not need them.Under standing verbalized . Counseled on medication R/B's, Most common side effects, & use. All questions were answered to patient satisfacti on. [id number] Katelynn Montes , [facility] [address],[place] [address] 03/08/2024 16:22:55 03/08/2024 16:49:12 Postmenopausal bleeding 09640163 N95.0 Today on exam cervical polyp vs fibroid at ext cervical OS.Likely this is the cause of her light red/pink on toilet tissue post sexual activity; which deep penetratio n is with spouse fingers; (he is 300lbs and she voices they do not usually have genital to genital penetratio n. We will schedule US and then we will f/u to discuss and decide next steps (aka polyp removed, MD consult??) Declined need std screen Time spent in visit is a total of 23 mins with at least 50% of visit consisting of counseling and review of plan of care. [id number] Josephine Dunhamhernan [facility] [address],[place] [address] 03/14/2024 15:08:41 03/14/2024 16:28:02 Postmenopausal bleeding 35862837 N95.0 N93.9 [id number] Katelynn Montes , [facility] [address],[place] [address] 03/20/2024 17:43:53 03/21/2024 14:34:30 Polyp at cervical os 475040283 N84.1 Today we reviewed US.Likely what is viewed is a polyp and her pap was negative.W e agreed to remove what we can of the polyp and then monitor; if PMB occurs again will need to see MD. Procedure to remove polyp:Lith otomy positionAp plied silver nitratePol yp removedSti ll some flush with cervical os but overall sufficient .Will monitorNor mal for some spotting 2-3 d post procedure. Would not expect period like flows light or heavy so those need to be reported. Time spent in visit is a total of 25mins with at least 50% of visit consisting of counseling and review of plan of care. [id number] RUBEN [facility] [address],[place] [address] 03/27/2024 16:26:50 03/27/2024 16:57:41 Polyp at cervical os 375499209 N84.1 Today she has returned for additional bleeding with cervical polyp that was only able to partially be removed. We had previously used silver nitrate which helped until the past few days.We agreed to applicatio n of silver nitrate today and mons paste until she can be seen by MD to determine if further interventi on should be completed. She feels she does not want to have to worry about PMB issues.Her US is on file and normal except polyp/Pap was wnl Reviewed post-silve r nitrate/mo ns paste care and what to expect.MD consult with Dr. Sandhya Lacy (prefers females) Time spent in visit is a total of 21 mins with at least 50% of visit consisting of counseling and review of plan of care. [id number] SANDHYA LACY MD [facility] [address],[place] [address] 04/12/2024 09:53:11 04/12/2024 10:35:05 Polyp at cervical os 090239629 N84.1 - causing PMB and postcoital bleeding- patient reports being told about it ~33 years ago- polyp removed by [facility] SEX THERAPIST and base cauterized at follow up due to continued bleeding- base and cervix well healed on exam today, no residual polyp- pathology benign- patient to return if symptoms recur [id number] SANDHYA LACY MD [facility] [address],[place] [address] 06/22/2024 12:26:19 06/25/2024 13:40:13 Abnormal uterine bleeding 9390639206 9100 N93.9 - postcoital bleeding likely due to cervical polyp- hx of cervical polyp s/p incomplete removal earlier in 2023- will order pelvic US to evaluate location of stalk- recommend hysterosco py and polypectom y in office to ensure complete removal- discussed risks of surgery, including bleeding, infection, and injury to adjacent structures [id number] Dilia Rodriguez [facility] [address],[place] [address] 06/26/2024 12:01:58 06/26/2024 12:35:49 Abnormal uterine bleeding 6008213433 9100 N93.9 [id number] SANDHYA LACY MD [facility] [address] [address] 08/01/2024 10:54:38 08/01/2024 15:55:48 Polyp of cervix 91632138 N84.1 - patient tolerated hysterosco py and polypectom y well; no complicati ons- cervix appeared normal at end of procedure- some mild vaginal and cervical atrophy; if postcoital bleeding reappears, would recommend trial of vaginal estrogen- will follow up on pathology results as available [id number] SANDHYA LACY MD [facility] [address] [address] 08/08/2024 09:42:59 08/08/2024 10:45:31 Screening mammography 69924427 Z12.31 Postoperative visit 1836 17862 Z48.89 - S/p hysterosco py and cervical polypectom y on 08/01- meeting post op milestones , pain well controlled - ok to d/c precaution s- if bleeding returns, will plan to trial vaginal estrogen therapy for vaginal atrophy Health Concerns Section Related Observation LastModified by Organization Detai ls LastModified Time None Recorded Concern Status LastModified by Organization Details LastModified Time None Recorded Advance Directives Directive None Recorded Payers Encounter Date Sequence Insurance Name Policy Number Policy Story Covered Member ID Story Member ID Guarantor Name 04/12/2024 1 [facility] ON OR AFTER 05/07/21 (MEDICAID REPLACEMENT - HMO) Caro Sarabia [id number] Caro Sarabia 06/22/2024 1 [facility] ON OR AFTER 05/07/21 (MEDICAID REPLACEMENT - HMO) Caro Sarabia [id number] Caro Sarabia 06/26/2024 1 [facility] ON OR AFTER 05/07/21 (MEDICAID REPLACEMENT - HMO) Caro Sarabia [id number] Caro Sarabia 08/01/2024 1 [facility] ON OR AFTER 05/07/21 (MEDICAID REPLACEMENT - HMO) Caro Sarabia [id number] Caro Sarabia 08/08/2024 1 [facility] ON OR AFTER 21 (MEDICAID REPLACEMENT - HMO) Caro Sarabia [id number] Caro Sarabia Notes Date Note Type Note Provider Name and Address Organization Details Recorded Time 04/12/2024 text/html Patient presents for follow up of cervical polyp. She had polyp removed then base cauterized with silver nitrate. She reports continued bleeding since last treatment, however this resolved a few days ago. Cervical polyp pathology benign. SANDHYA LACY MD [address], [place], [address], [facility] 04/12/2024 10:32:09 06/22/2024 text/html Patient reports [...] base, and that it may return. SANDHYA LACY MD [address], [place], [address], [facility] 06/23/2024 22:11:25 08/01/2024 text/html Patient presents for hysteroscopy and cervical polypectomy. Risks and benefits previously discussed and now reviewed with patient. SANDHYA LACY MD [address], [place], [address], [facility] 08/01/2024 15:12:59 08/08/2024 text/html S/p hysteroscopy and cervical polypectomy 08/01. Patient doing well, no complaints. Tolerating general diet. Denies nausea or vomiting. No shortness of breath or chest pain. No bleeding. SANDHYA LACY MD [address], [place], [address], [facility] 08/08/2024 10:43:23 OBGyn Episode Ob Episode Information Episode Created Date Number of Fetuses Patient Bloodtype Patient rh Status Prepregnancy Weight lbs Domestic Partner Domestic Partner Phone Father Name Fiscal Accountant Status 01/03/20 24 1 CLOSED Fetus Data First Name Last Name Admitted to NICU Weight (g) Sex Living Outcome Pediatric Complications Fetus ID Race Codes Race Delivery Type 3175.14 4 M Full Term [id number] Vaginal Delivery Kenney Calculation Initial Kenney Date Initial Exam Date Initial Exam Provider Initial Ultrasound Date Last Menstrual Period Date Ultra Sound Weeks Gestation 0 Eighteen To Twenty Week Kenney Update Ultra Sound Date Fundal Height At Umbil Quickening Date Ultra Sound Latest Weeks Gestation Final Kenney Confirmed By Final Kenney Confirmed Date Final Kenney Date Ultra Sound Latest Days Gestation 0 [...] Domestic Partner Domestic Partner Phone Father Name Fiscal Accountant Status 01/03/20 24 1 CLOSED Fetus Data First Name Last Name Admitted to NICU Weight (g) Sex Living Outcome Pediatric Complications Fetus ID Race Codes Race Delivery Type 2863.07 2704 M Full Term [id number] Vaginal Delivery Kenney Calculation Initial Kenney Date Initial Exam Date Initial Exam Provider Initial Ultrasound Date Last Menstrual Period Date Ultra Sound Weeks Gestation 0 Eighteen To Twenty Week Kenney Update Ultra Sound Date Fundal Height At Umbil Quickening Date Ultra Sound Latest Weeks Gestation Final Kenney Confirmed By Final Kenney Confirmed Date Final Kenney Date Ultra Sound Latest Days Gestation 0 [...] Domestic Partner Domestic Partner Phone Father Name Fiscal Accountant Status 01/03/20 24 1 CLOSED Fetus Data First Name Last Name Admitted to NICU Weight (g) Sex Living Outcome Pediatric Complications Fetus ID Race Codes Race Delivery Type , Spontane ous [id number] Kenney Calculation Initial Kenney Date Initial Exam Date Initial Exam Provider Initial Ultrasound Date Last Menstrual Period Date Ultra Sound Weeks Gestation 0 Eighteen To Twenty Week Kenney Update Ultra Sound Date Fundal Height At Umbil Quickening Date Ultra Sound Latest Weeks Gestation Final Kenney Confirmed By Final Kenney Confirmed Date Final Kenney Date Ultra Sound Latest Days Gestation 0 [...] Domestic Partner Domestic Partner Phone Father Name Fiscal Accountant Status 01/03/20 24 1 CLOSED Fetus Data First Name Last Name Admitted to NICU Weight (g) Sex Living Outcome Pediatric Complications Fetus ID Race Codes Race Delivery Type 2267.96 M Full Term [id number] Vaginal Delivery Kenney Calculation Initial Kenney Date Initial Exam Date Initial Exam Provider Initial Ultrasound Date Last Menstrual Period Date Ultra Sound Weeks Gestation 0 Eighteen To Twenty Week Kenney Update Ultra Sound Date Fundal Height At Umbil Quickening Date Ultra Sound Latest Weeks Gestation Final Kenney Confirmed By Final Kenney Confirmed Date Final Kenney Date Ultra Sound Latest Days Gestation 0 [...] Domestic Partner Domestic Partner Phone Father Name Fiscal Accountant Status 01/03/20 24 1 CLOSED Fetus Data First Name Last Name Admitted to NICU Weight (g) Sex Living Outcome Pediatric Complications Fetus ID Race Codes Race Delivery Type , Spontane ous [id number] Kenney Calculation Initial Kenney Date Initial Exam Date Initial Exam Provider Initial Ultrasound Date Last Menstrual Period Date Ultra Sound Weeks Gestation 0 Eighteen To Twenty Week Kenney Update Ultra Sound Date Fundal Height At Umbil Quickening Date Ultra Sound Latest Weeks Gestation Final Kenney Confirmed By Final Kenney Confirmed Date Final Kenney Date Ultra Sound Latest Days Gestation 0 [...]
--- OUTSIDE RECORDS SUMMARY | 2024-12-24 17:57 | XMS_ITS | Data Portability ---
Author Organization [place] - [facility] [employer], Main Office Address [address] [place] [address] Care Team Providers Care Music Instructor Name Role Phone JAN ZEE Primary Care Provider Assessment Encounter Date Assessment Date Assessment LastModified by Organization Details LastModified Time 09/12/2023 09/12/2023 A1C, CMP unremarkable [email or web address] Not available 09/06/2023 12:29:03 Plan of Treatment Reminders Order Date Submit Date Provider Last Modified By Organization Details Last Modified Time Details Appointments None recorded. Lab alpha-1-ant itrypsin (aat) phenotype, serum 2022 023 [email or web address] [facility] (Lab), [address] [place], [address], 3 12:17:02 ige, total, serum 2022 023 [email or web address] 25 [facility] (Lab), [address] [place], [address], 3 12:17:03 tb (M tuberculosi s), ifn-gamma [place], blood 2022 023 [email or web address] 25 [facility] (Lab), [address] [place], [address], 3 12:17:03 igg subclasses 1+2+3+4, serum 2022 023 [email or web address] 25 [facility] (Lab), [address] [place], [address], 3 12:17:03 BNP (B-type natriuretic peptide), serum or plasma 2022 023 [facility] (Lab), [address] [place], [address], 3 12:35:15 rast class, qualitative , serum - Respiratory region 8 2022 023 [facility] (Lab), [address] [place], [address], 3 10:12:08 eosinophils , auto, blood (OBS) 2022 023 [facility] (Lab), [address] [place], [address], 3 12:34:51 Referral None recorded. Procedures None recorded. Surgeries None recorded. Imaging CT, chest, w/o contrast - R/O ILD - fibrosis; pt is going to pay for this test OOP 2022 023 [facility] (Central Scheduling), [address], [address], [place], [address], 3 17:45:41 Medication Orders nystatin 100,000 unit/gram topical powder 2022 023 [facility] [address] [place], [address], 3 17:03:19 famotidine 40 mg tablet 2022 023 [facility] [address] [place], [address], 3 17:08:31 Patient TargetsNo targets recorded. Patient Instructions Encounter Date Encounter Id Patient Instructions Last Modified By Organization Details Last Modified Time 07/18/2023 [id number] complete PFT w/ post bronchodilator spirometry* [email or web address] Not available 09/22/2023 10:14:36 six minute walk test* [email or web address] Not available 10/12/2023 11:04:25 Reason for Referral None Reported. Results Created Date Observation Date Name Description Value Unit Range Abnormal Flag Note LastModifiedBy Organization Detail LastModifiedTime 06/03/2006/03/2023 CBC/C OMPLE TE BLD COUNT W/DIF F white blood cells 7.2 x10'3 /uL 4.2-10 .8 Not Available [facility] (Lab) [address] [place], [address], 06/03/2023 19:14:29 06/03/2006/03/2023 CBC/C OMPLE TE BLD COUNT W/DIF F red blood cells 5.32 x10'6 /uL 3.80-5 .20 high Not Available [facility] (Lab) [address] [place], [address], 06/03/2023 19:14:29 06/03/2006/03/2023 CBC/C OMPLE TE BLD COUNT W/DIF F hemoglobin 15.2 g/dL 12.0-1 5.6 Not Available [facility] (Lab) [address] [place], [address], 06/03/2023 19:14:29 06/03/2006/03/2023 CBC/C OMPLE TE BLD COUNT W/DIF F hematocrit 47.6 % 35.7-4 5.7 high Not Available [facility] (Lab) [address] [place], [address], 06/03/2023 19:14:29 06/03/2006/03/2023 CBC/C OMPLE TE BLD COUNT W/DIF F mean red cell volume 89.5 fL 82.0-9 9.0 Not Available [facility] (Lab) [address] [place], [address], 06/03/2023 19:14:29 06/03/20 23 06/03/2023 CBC/C OMPLE TE BLD COUNT W/DIF F mean red cell hemoglobin 28.6 pg 27.0-3 3.0 Not Available [facility] (Lab) [address] [place], [address], 06/03/2023 19:14:29 06/03/20 23 06/03/2023 CBC/C OMPLE TE BLD COUNT W/DIF F mean RBC HGB concentratio n 31.9 g/dL 31.0-3 6.0 Not Available [facility] (Lab) [address] [place], [address], 06/03/2023 19:14:06/03/2006/03/2023 CBC/C OMPLE TE BLD COUNT W/DIF F red cell distribution width 12.8 % 11.8-1 5.5 Not Available [facility] (Lab) [address] [place], [address], 06/03/2023 19:14:29 06/03/20 23 06/03/2023 CBC/C OMPLE TE BLD COUNT W/DIF F platelets 314 x10'3 /uL 150-40 0 Not Available [facility] (Lab) [address] [place], [address], 06/03/2023 19:14:29 06/03/2006/03/2023 CBC/C OMPLE TE BLD COUNT W/DIF F mean platelet volume 10.1 fL 9.0-12 .4 Not Available [facility] (Lab) [address] [place], [address], 06/03/2023 19:14:29 06/03/2006/03/2023 CBC/C OMPLE TE BLD COUNT W/DIF F neutrophils 57.8 % 39.0-7 2.0 Not Available [facility] (Lab) [address] [place], [address], 06/03/2023 19:14:06/03/2006/03/2023 CBC/C OMPLE TE BLD COUNT W/DIF F lymphocytes 31.1 % 16.0-4 7.0 Not Available [facility] (Lab) [address] [place], [address], 06/03/2023 19:14:06/03/2006/03/2023 CBC/C OMPLE TE BLD COUNT W/DIF F monocytes 8.7 % 5.0-12 .0 Not Available [facility] (Lab) [address] [place], [address], 06/03/2023 19:14:06/03/2006/03/2023 CBC/C OMPLE TE BLD COUNT W/DIF F eosinophils 1.5 % 1.0-7. 0 Not Available [facility] (Lab) [address] [place], [address], 06/03/2023 19:14:06/03/2006/03/2023 CBC/C OMPLE TE BLD COUNT W/DIF F basophils 0.6 % 0.0-2. 0 Not Available [facility] (Lab) [address] [place], [address], 06/03/2023 19:14:06/03/2006/03/2023 CBC/C OMPLE TE BLD COUNT W/DIF F immature granulocytes 0.3 % 0.00-0 .50 Not Available [facility] (Lab) [address] [place], [address], 06/03/2023 19:14:06/03/2006/03/2023 CBC/C OMPLE TE BLD COUNT W/DIF F neutrophils, absolute count 4.19 x10'3 /uL 1.5-8. 0 Not Available [facility] (Lab) [address] [place], [address], 06/03/2023 19:14:29 06/03/20 23 06/03/2023 CBC/C OMPLE TE BLD COUNT W/DIF F lymphocytes, absolute count 2.25 x10'3 /uL 1.07-3 .43 Not Available [facility] (Lab) [address] [place], [address], 06/03/2023 19:14:06/03/2006/03/2023 CBC/C OMPLE TE BLD COUNT W/DIF F monocytes, absolute count 0.63 x10'3 /uL 0.29-0 .99 Not Available [facility] (Lab) [address] [place], [address], 06/03/2023 19:14:06/03/2006/03/2023 CBC/C OMPLE TE BLD COUNT W/DIF F eosinophils, absolute count 0.11 x10'3 /uL 0.02-0 .53 Not Available [facility] (Lab) [address] [place], [address], 06/03/2023 19:14:06/03/2006/03/2023 CBC/C OMPLE TE BLD COUNT W/DIF F basophils, absolute count 0.04 x10'3 /uL 0.01-0 .08 Not Available [facility] (Lab) [address] [place], [address], 06/03/2023 19:14:29 06/03/2006/03/2023 CBC/C OMPLE TE BLD COUNT W/DIF F immature granulocytes ,absolute 0.02 x10'3 /uL 0.00-0 .05 Not Available [facility] (Lab) [address] [place], [address], 06/03/2023 19:14:29 06/03/20 23 06/03/2023 CBC/C OMPLE TE BLD COUNT W/DIF F nucleated red blood cells 0.0 % -0 Not Available [facility] (Lab) [address] [place], [address], 06/03/2023 19:14:29 06/03/20 23 06/03/2023 CBC/C OMPLE TE BLD COUNT W/DIF F NRBC# 0.00 x10'3 /uL Not Available [facility] (Lab) [address] [place], [address], 06/03/2023 19:14:29 06/03/20 23 06/03/2023 IRON/ TIBC PANEL total iron binding capacity 399 mcg/d L 265-47 5 Not Available [facility] (Lab) [address] [place], [address], 06/03/2023 19:43:04 06/03/20 23 06/03/2023 IRON/ TIBC PANEL % transferrin saturation 27 % 20-55 Not Available [facility] (Lab) [address] [place], [address], 06/03/2023 19:43:04 06/03/20 23 06/03/2023 IRON/ TIBC PANEL unsaturated iron bind capacity 291 mcg/d L 126-38 2 Not Available [facility] (Lab) [address] [place], [address], 06/03/2023 19:43:04 06/03/20 23 06/03/2023 IRON/ TIBC PANEL iron 108 mcg/d L 42-175 Not Available [facility] (Lab) [address] [place], [address], 06/03/2023 19:43:04 06/03/20 23 06/03/2023 BASIC METAB OLIC PANEL sodium 139 mmol/ L 137-14 5 Not Available [facility] (Lab) [address] [place], [address], 06/03/2023 19:37:10 06/03/20 23 06/03/2023 BASIC METAB OLIC PANEL potassium 4.1 mmol/ L 3.5-5. 1 Not Available [facility] (Lab) [address] [place], [address], 06/03/2023 19:37:10 06/03/20 23 06/03/2023 BASIC METAB OLIC PANEL chloride 100 mmol/ L 98-107 Not Available [facility] (Lab) [address] [place], [address], 06/03/2023 19:37:10 06/03/20 23 06/03/2023 BASIC METAB OLIC PANEL carbon dioxide 30 mmol/ L 22-30 Not Available [facility] (Lab) [address] [place], [address], 06/03/2023 19:37:10 06/03/20 23 06/03/2023 BASIC METAB OLIC PANEL anion gap 13.1 mmol/ L 14-22 low Not Available [facility] (Lab) [address] [place], [address], 06/03/2023 19:37:10 06/03/20 23 06/03/2023 BASIC METAB OLIC PANEL glucose 83 mg/dL 70-99 Not Available [facility] (Lab) [address] [place], [address], 06/03/2023 19:37:10 06/03/20 23 06/03/2023 BASIC METAB OLIC PANEL BUN 21 mg/dL 8-19 high Not Available [facility] (Lab) [address] [place], [address], 06/03/2023 19:37:10 06/03/20 23 06/03/2023 BASIC METAB OLIC PANEL creatinine 0.48 mg/dL 0.66-1 .25 low Not Available [facility] (Lab) [address] [place], [address], 06/03/2023 19:37:10 06/03/2006/03/2023 BASIC METAB OLIC PANEL GFR >60 Refer ence Range : [place] ge GFR Healt hy Adult : >60 [...] calcu lator is avail able on the [facility] websi te: https :[email or web address] zhang.dany todd/pr suyapa rizvi s/kdo qi/gf r_cal culat or Not Available [facility] (Lab) [address] [place], [address], 06/03/2023 19:37:10 06/03/2006/03/2023 BASIC METAB OLIC PANEL calcium 9.9 mg/dL 8.4-10 .2 Not Available [facility] (Lab) [address] [place], [address], 06/03/2023 19:37:10 06/03/2006/03/2023 HEMOG LOBIN A1C HA1C [...] 3.050 uIU/m L 0.465- 4.680 Not Available [facility] (Lab) [address] [place], [address], 06/03/2023 19:59:39 06/03/20 23 06/03/2023 VITAM IN B12 (TROIE HAKEEM ) vb12 574 pg/mL 239-93 1 Not Available [facility] (Lab) [address] [place], [address], 06/03/2023 20:27:55 06/03/20 23 06/03/2023 JOYCE TIN ferritin 27 NG/mL 11.1-2 64 Not Available [facility] (Lab) [address] [place], [address], 06/03/2023 20:28:05 06/03/20 23 elect keiko forde am No observ ation record ed. [email or web address] [facility] [address], [place], [address], 06/03/2023 12:06:19 06/04/20 23 06/03/2023 XR, chest , 2 view No observ ation record ed. [email or web address] [facility] [address], [address], 06/07/2023 12:38:11 07/27/20 23 07/27/2023 XR, chest , 2 view No observ ation record ed. [email or web address] [address], [place], [address], 08/01/2023 18:27:13 09/08/20 23 09/08/2023 compl ete PFT w/ post [facility] hodil ator giuseppe metry * No observ ation record ed. [email or web address] [place] [address] [address] [place], [address], 09/09/2023 10:41:49 09/12/20 23 09/08/2023 CT, chest , w/o contr ast No observ ation record ed. [email or web address] [facility] (Central Scheduling) [address], [place], [address], 09/26/2023 15:41:03 09/18/20 23 09/08/2023 compl ete PFT w/ post [facility] hodil ator giuseppe metry * No observ ation record ed. [email or web address] [place] [address] ([facility] Scheduling) [address] [place], [address], 09/22/2023 10:14:48 Result Notes None recorded. 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 Active 2022 CORDELIA Banegas [address] [facility], [place] [address], [place], [address] , [employer] 3 10:36:11 Hyperlipid emia 59725373 Active 2022 CORDELIA Banegas [address] [facility], [place] [address], [place], [address] , [employer] 3 17:02:37 Vitamin D deficiency 85777625 Active 2022 CORDELIA Banegas [address], [place], [address] , [place] [facility] 3 17:02:47 Chest pain 26633583 Active 2022 Milena Gusman MD [address], [address], [place], [address] , [place] [facility] 3 12:06:11 Respirator y crackles 00581473 Active 2022 ISMAEL Carpenter [address], [address], [place], [address] , [place] [facility] 3 16:51:51 Chronic cough 65077199 Active 2022 FAYE Carpenter [address], [place], [address] , [place] [facility] 3 16:52:42 Dyspnea on exertion 45288436 Active 2022 FAYE Carpenter [address], [place], [address] , [place] [facility] 3 16:53:33 Gastroesop hageal reflux disease without esophagiti s 815135640 Active 2022 FAYE Carpenter [address], [place], [address] , [place] [facility] 3 17:07:40 Trochanter ic bursitis of left hip 5850332517477 03 Active 2022 RICK Decker [address], [address], [place], [address] , [place] [facility] 3 17:07:56 Headache 51341500 Active 2022 RICK Decker [address], [place], [address] , [place] [facility] 3 17:24:25 Candidal intertrigo 273432344 Active 2022 CORDELIA Banegas [address], [place], [address] , [facility] 3 16:54:13 Vaginitis 55171575 Active 2023 Milena Gusman MD [address] [facility] [address], [place], [address] , [facility] 4 18:06:56 Problem Notes None recorded. Procedures Surgical History Date Name Laterality Status Provider Name and Address Organization Details Recorded Time esophageal hiatus hernia repair completed Not Available [facility] 01/06/2023 01:23:36 ligation of bilateral fallopian tubes completed Not Available [facility] 01/06/2023 01:23:36 Imaging Results Imaging Date Name Status LastModified by Organization Details LastModified Time 06/03/2023 electrocardiogram completed [email or web address] [facility] [address], [place], [address], 06/03/2023 12:06:19 06/03/2023 XR, chest, 2 view completed [email or web address] [facility] [address], [place], [address], 06/07/2023 12:38:11 07/27/2023 XR, chest, 2 view completed [email or web address] [address], [place], [address], 08/01/2023 18:27:13 09/08/2023 complete PFT w/ post bronchodilator spirometry* completed [email or web address] [facility] [address] [place], [address], 09/09/2023 10:41:49 09/08/2023 CT, chest, w/o contrast completed [email or web address] [facility] (Central Scheduling) [address], [place], [address], 09/26/2023 15:41:03 09/08/2023 complete PFT w/ post bronchodilator spirometry* completed [email or web address] [facility] ([facility] Sched[facility]) [address], [place], [address], 09/22/2023 10:14:48 Procedure Notes None recorded. Medical [...] Updated DateTime 3 154.94 cm 35.3 kg/m2 47932.7 7 g 94.1 [degF] 99 /min 95 % 95 % 132 mm[Hg] 84 mm[Hg] Tiara Goncalves RN [facility] [employer] 3 15:14:51 Date Recorded Body height Body temperature Provider Olive sanders and Address Organization Details Last Updated DateTime 07/18/2023 154.94 cm 97.4 [degF] Nehal Oneill MA [facility] [employer] 07/18/2023 16:21:34 Date Recorded Body mass index (BMI) Body weight Heart rate Oxygen saturation Oxygen saturation in Arterial blood by Pulse oximetry Systolic blood pressure Diastolic blood pressure Provider Name and Address Organization Details Last Updated DateTime 3 35.2 kg/m2 43250.9 8 g 78 /min 96 % 96 % 108 mm[Hg] 50 mm[Hg] Smiley Neely [facility] [employer] [facility] 3 16:34:31 Date Recorded Body height Body mass index (BMI) Body weight Body temperature Heart rate Oxygen saturation Oxygen saturation in Arterial blood by Pulse oximetry Systolic blood pressure Diastolic blood pressure Provider Name and Address Organization Details Last Updated DateTime 3 154.94 cm 35.3 kg/m2 71293.7 7 g 97.9 [degF] 78 /min 94 % 94 % 102 mm[Hg] 70 mm[Hg] Tiara Goncalves RN [facility] [employer] [facility] 3 16:47:04 Date Recorded Body height Body mass index (BMI) Body weight Heart rate Oxygen saturation Oxygen saturation in Arterial blood by Pulse oximetry Systolic blood pressure Diastolic blood pressure Provider Name and Address Organization Details Last Updated DateTime 3 154.94 cm 35.9 kg/m2 47133.5 5 g 80 /min 96 % 96 % 120 mm[Hg] 70 mm[Hg] Nell Abarca MA [facility] [employer] [facility] 3 16:38:28 Date Recorded Body height Body mass index (BMI) Body weight Body temperature Heart rate Oxygen saturation Oxygen saturation in Arterial blood by Pulse oximetry Systolic blood pressure Diastolic blood pressure Provider Name and Address Organization Details Last Updated DateTime 3 154.94 cm 35.9 kg/m2 75386.5 5 g 98.3 [degF] 80 /min 96 % 96 % 132 mm[Hg] 78 mm[Hg] Frida Mortensen LPN [facility] [employer] [facility] 3 16:37:31 Social History Question Answer Notes LastModified by Organizat ion Details LastModified Time Tobacco Smoking Status Never Smoker Bessie davis [facility] [employer] [facility] 09/12/2023 16:29:48 What Is Your Level Of Alcohol Consumption? Occasional [id number] Information not available 01/06/2023 What Is Your Level Of Caffeine Consumption? Occasional [id number] Information not available 01/06/2023 In The 14 Days Before Symptom Onset, Have You Had Close Contact With A Laboratory-confir med COVID-19 While That Case Was Ill? No [email or web address] Information not available 09/12/2023 In The 14 Days Before Symptom Onset, Have You Had Close Contact With A Person Who Is Under Investigation For COVID-19 While That Person Was Ill? No [email or web address] Information not available 09/12/2023 What Type Of Diet Are You Following? REGULAR [id number] Information not available 01/06/2023 Have You Ever Been Counseled For Unhealthy Alcohol Use? No [email or web address] Information not available 09/12/2023 Do You Have Any Pets? Yes One Dog Information not available 09/12/2023 Do You Use Any Illicit Or Recreational Drugs? No [email or web address] Information not available 09/12/2023 Has Tobacco Cessation Counseling Been Provided? No [email or web address] Information not available 09/12/2023 Have You Recently Traveled Abroad? No [email or web address] Information not available 09/12/2023 Do You Have Any Dietary Restrictions? No [email or web address] Information not available 09/12/2023 Do You Or Have You Ever Used Any Other Forms Of Tobacco Or Nicotine? No [email or web address] Information not available 09/12/2023 Sex: Unknown Functional Status Question Answer Note LastModified by Organizat ion Details LastModified Time What is your exercise level? Occasional [id number] Information not available 01/06/2023 Mental Status None recorded. Family History Relationship Description Onset Age of this Age Resolved Age Notes LastModified by Organization Details LastModified Time Paternal Grandmother Malignant tumor of cervix [id number] Not available 01/06/2023 01:23:38 Paternal Grandfather Cirrhosis of liver [id number].716 [id number] Not available 01/06/2023 01:23:38 Paternal Grandfather Malignant tumor of lung MIGRATION.937 [id number] Not available 01/06/2023 01:23:38 Maternal Grandmother Cerebrovascu lar accident 70 [id number].794 [id number] Not available 01/06/2023 01:23:38 Medical History No medical history recorded. Gynecological HistoryNo gynecological history recorded. Obstetrics History GPAL:G 0 P 0 0 0 0 Immunizations Vaccine Type Date Status Note Provider Nam e and Address Organization Details Recorded Time COVID-19, mRNA, LNP-S, PF, 30 mcg/0.3 mL dose 11/10/2021 completed Not Available [facility] 3 01:25:06 COVID-19, mRNA, LNP-S, PF, 30 mcg/0.3 mL dose 02/15/2021 completed Not Available [facility] 3 01:25:06 COVID-19, mRNA, LNP-S, PF, 30 mcg/0.3 mL dose 01/23/2021 completed Not Available [facility] 3 01:25:06 Influenza, split virus, quadrivalent, PF 08/23/2022 completed Not Available [facility] 3 01:25:06 Past Encounters Encounter ID Performer Location Encounter Start Date Encounter Closed Date Diagnosis/Indication Diagnosis SNOMED-CT Code Diagnosis ICD10 Code Diagnosis Note [id number] [facility] [place] [address] [place] [address] 06/23/2022 00:00:00 06/23/2022 16:40:50 [id number] [facility] [place] [address] [place] [address] 07/14/2022 00:00:00 07/14/2022 09:30:27 [id number] [facility] [place] [address] [place] [address] 08/09/2022 00:00:00 09/06/2022 13:53:34 [id number] [facility] [place] [address] [place] [address] 08/23/2022 00:00:00 08/23/2022 16:58:31 [id number] [facility] [place] [address] [facility] [address] [place] [address] 10/20/2022 00:00:00 10/20/2022 18:05:11 [id number] CORDELIA Banegas [facility] [place] [address] [place] [address] 01/10/2023 10:10:59 01/10/2023 10:51:30 Costal chondritis 47380242 M94.0 Most likely aggravated by recent viral illness. She has pain with palpation bilaterall y on chest wall/ribs. Will have her do course of prednisone . She has finished abx.F/u in 2 weeks if no improvemen t. [id number] Milena Gusman MD [facility] [address] [facility] [address] [place] [address] 06/03/2023 11:37:53 06/03/2023 12:50:41 Asthma 063571160 J45.909 No wheezing on exam, but decreased breath sounds in lower lung fieldscont inue symbicort bidcontinu e albuterol hfa prnpulmona ry referral givenCXR orderedpre dnisone taper with foodf/u in 2 weeks or sooner if neededrevi ewed s/s that warrant urgent/myles rgent eval in meantime Chest pain 85662437 R07. 9 R53.83 R42 EKG abnormalca rdiology referral givencheck labsf/u in 2 weeks or sooner if neededrevi ewed s/s that warrant urgent/myles rgent eval in meantime [id number] RICK Decker [facility] [address] [place] [address] 06/16/2023 15:07:26 06/16/2023 15:58:06 Asthma 370437103 J45.909 CTAB on examcontin ue symbicort bidcontinu e albuterol hfa prnpulmona ry referral given last visit, referral reprinted todayCXR wnl (06/03/23)c ontinue prednisone taper with foodrecomm end pt use albuterol inhaler about 10 min before Symbicort to improve absorption .f/u in 4 weeks or sooner if neededrevi ewed s/s that warrant urgent/myles rgent eval in meantime Chest pain 80898620 R07. 9 R53.83 R42 EKG abnormal last visitcardi ology referral given last visit, reprinted todayLabs wnl (06/03/23)f /u in 4 weeks or sooner if neededrevi ewed s/s that warrant urgent/myles rgent eval in meantime [id number] Nilda Williamson, [facility] Pulmonolo gy Kisha Lopez [address] [place] [address] 07/18/2023 16:18:25 07/18/2023 17:50:01 Respiratory crackles 55301000 R09.89 Bilateral basesCheck HRCT Chronic cough 91287380 R 05.3 Check PFT and labsContin ue Symbicort for now - instructed on technique Dyspnea on exertion 6084 5006 R06.09 Check six minute walk testing Gastroesop hageal reflux disease without esophagitis 395746784 K21.9 Start PepcidDisc ussed dietary modificati onsAvoid tight clothing.N o eating 2-3 hours prior to bedAvoid offending foods E levate head of bed while sleeping [id number] RICK [facility] Primary Care [facility] [address] [place] [address] 08/05/2023 16:37:55 08/22/2023 16:08:20 Asthma [id number] J45.909 Chronic, improvingC TAB on examcontin ue symbicort bidcontinu e albuterol nebulizers as recommende d by pulmonolog ypulmonary visit 07/18/23 and f/u scheduled for 09/09/23CXR wnl (07/27/23)r eviewed s/s that warrant urgent/myles rgent eval in meantime Reviewed pulmonary note from Damaris Williamson, [employer] (07/18/23): respirator y crackles Bilateral bases.Chec k HRCT. Order CT, chest, w/o contrast. chronic cough: Check PFT and labs. Continue Symbicort for now - instructed on technique. Check alpha 1 antitrypsi n phenotype. Check immunoglob ulin IgE.Check quantifero n-TB gold. Check IgG subclasses 1-4. Check BNP (B-type natriureti c peptide), serum or plasma. Check rast class, qualitativ e, serum. Order complete PFT w/ post bronchodil ator spirometry . Check eosinophil s, auto, blood. dyspnea on exertion: Check six minute walk testing. Chest pain [id number] R07. 9 R53.83 R42 Stable, no episodes in >4 weeksChest pain was likely due to previously poorly controlled asthmaEKG abnormal last visitcardi ology referral given last visit, pt awaiting appt with provider that accepts her insurance. Labs wnl (06/03/23)r eviewed s/s that warrant urgent/myles rgent eval. Trochanter ic bursitis of left hip [id number] M70.62 Acute on ChronicExa cerbated by extra activity. 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 Headache [id number] R51.9 chronicHav ing more frequent headaches. Has been taking ibuprofen. Discussed recommenda tion of taking tylenol or excedrine migraine before taking ibuprofen due to her asthma. Discussed need for water, stress reduction, and rest.Heada rudy prevention techniques reviewed. Importance of lifestyle measures reviewed including managing stress, good sleep hygiene, avoiding headache triggers. Ensure take daily preventati ve meds, avoid overuse of headache treatment meds. [id number] CORDELIA Banegas [facility] Primary Care [facility] [address] [place] [address] 09/12/2023 16:29:02 09/12/2023 17:12:14 Hyperlipidemia [id number] E78.5 (08/29/23) TC 219, Tri 132, HDL 70, LDL 123Continu e atorvastat in 10mg daily. Vitamin D deficiency [id number] 65469 E55.9 Stable. Candidal intertrigo 2661 54346 B37.2 Under breasts and inguinal fold.Advis ed to keep area as clean and dry as possible. [id number] RICK [facility] Pulmonolo gy Kisha Lopez [address] [place] [address] 09/09/2023 16:32:25 09/12/2023 09:01:18 Respiratory crackles [id number] R09.[address] ordered at last OV, staff scheduled today. Chronic cough 24889910 R 05.3 PFT completed with ratio 75, FEV1 89NO bronchodil ator responseTL C 84DLCO 106 adjustedRe commend methacholi ne challenge testing.Co ntinue Symbicort for now - instructed on techniqueR AST with multiple high reactions. Recommend product safety specialist. IGE normalIGGs normalQuan tiferon GOLD negative.N eed alpha1 phenotype, level normalEosi nophils and BNP normalDisc ussed reportable signs and symptoms. Dyspnea on exertion 6084 5006 R06.09 Normal walk testing. Gastroesop hageal reflux disease without esophagitis [id number] K21.9 COntinue PepcidDisc ussed dietary modificati onsAvoid tight clothing.N o eating 2-3 hours prior to bedAvoid offending foods E levate head of bed while sleeping Health Concerns Section Related Observation LastModified by Organization Detai ls LastModified Time None Recorded Concern Status LastModified by Organization Details LastModified Time None Recorded Advance Directives Directive None Recorded Payers Encounter Date Sequence Insurance Name Policy Number Policy Story Covered Member ID Story Member ID Guarantor Name 06/16/2023 1 [facility] (MEDICAID REPLACEMENT - O) [id number] Chriswesly Dumontman [id number] Caro Sarabia 07/18/2023 1 [facility] (MEDICAID REPLACEMENT - O) [id number] Chriswesly Dumontman [id number] Caro Sarabia 08/05/2023 1 [facility] (MEDICAID REPLACEMENT - HMO) [id number] Eleazararabella DumontNo [id number] Caro Sarabia 09/09/2023 1 [facility] (MEDICAID REPLACEMENT - HMO) [id number] Eleazararabella No [id number] Caro Sarabia 09/12/2023 1 [facility] (MEDICAID REPLACEMENT - HMO) [id number] Eleazararabella No [id number] Caro Sarabia Notes Date Note Type [...] taking steroids and using inhalers as directed. Mauroblayne eKnn, [facility] [address], [facility] [address], [place], [address], [facility] [employer] [facility] [employer] Reviewed 06/16/2023 17:13:58 3 text/html Ms Palacios presents [...] and testingReviewed medications and allergies Nilda Williamson, [facility]- [address] [facility], [facility] [address], [place], [address], [facility] [employer] Reviewed 07/18/2023 17:09:02 3 text/html f/u 1. Asthma: [...] ChronicExacerbated by extra activity. 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 Has popping-type pain when she's changing positions, walking up and down stairs, or standing for long periods of time. 4. Headaches: has been having more frequent headaches at work. She has been taking ibuprofen lately but wants to try taking tylenol. Worsened by activity and noise. Denies n/v associated with headaches. RICK Decker [address] [facility], [facility] [address], [place], [address], [employer] 08/05/2023 19:30:08 3 text/html Ms Palacios presents [...] symptoms do not wake her at night RICK Carpenter- [address], [facility] [address], [place], [address], [employer] 09/11/2023 20:19:12 3 text/html Pt. here for routine follow-up and review labs drawn 08/29/23. CORDELIA Banegas [address], [facility] [address], [place], [address], [employer] 09/12/2023 19:02:59 OBGyn Episode No OBEpisode recorded.
== END 2024-12-24 15:16 | disposition home or self-care (01) ==
LOC: ANHIMG 15:17
PROVIDERS: PCP Family Medicine; Visit Provider Obstetrics & Gynecology
DX: Z12.31 Encounter for screening mammogram for malignant neoplasm of breast (principal)
CPT/HCPCS: 77063; 77067